=== PATIENT | male | born 1950 | race Caucasian/White ===

== ENCOUNTER 2022-06-16 14:24 | Emergency (ER) | payer OTHER, SELFPAY ==
[2022-06-16 14:32] VITALS: BP 163/85; PULSE 87; RESP 20; TEMP 36.7; O2SAT 97; BMI 29.5
--- NOTE | 2022-06-16 14:33 | ED.ABDPAIN ---
HPI - Abdominal Pain General Chief Complaint: General Medical <Flora Kramer NP - Last Filed: 06/16/22 14:36> Stated Complaint: UTI/Prostate issues <Flora Kramer NP - Last Filed: 06/16/22 14:36> Time Seen by Provider: 06/16/22 20:45 <Flora Kramer NP - Last Filed: 06/16/22 14:36> Source: patient <Bran Anderson MD - Last Filed: 06/16/22 21:57> Mode of arrival: ambulatory <Bran Anderson MD - Last Filed: 06/16/22 21:57> Limitations: no limitations <Bran Anderson MD - Last Filed: 06/16/22 21:57> History of Present Illness HPI narrative: 71-year-old male who presents emergency department for evaluation of urinary frequencydysuria times 2-3 days and frequent, small, thin bowel movements x9 days. Patient states that over the past 9 days he has had 15-20 bowel movements per day. He states that occasionally the bowel movements are thin and are small, he denies having loose stools, he states that his stools are formed. States he does have some pain after his bowel movements but otherwise denies abdominal pain. He states he has been having urinary frequency with dysuria times 2-3 days. He denied fever, chills, nausea, vomiting, abdominal pain. He has not noticed any dark stools or black stools. Denies any weight loss or weight gain. <Bran Anderson MD - Last Filed: 06/16/22 21:57> Related Data Home Medications: Previous Rx's Medication Instructions Recorded acetaminophen 500 mg tablet 1,000 mg PO Q6H PRN fever or pain 06/16/22 (Tylenol Extra Strength) #20 tabs ciprofloxacin HCl 500 mg tablet 500 mg PO Q12H 10 days #20 tabs 06/16/22 (Cipro) ibuprofen 400 mg tablet 400 mg PO TID PRN fever or pain 06/16/22 #30 tabs tamsulosin 0.4 mg capsule (Flomax) 0.4 mg PO DAILY #30 caps 06/16/22 cephalexin 500 mg capsule 500 mg PO Q6H 7 days #28 caps 06/21/22 <Flora Kramer NP - Last Filed: 06/16/22 14:36> Allergies/Adverse Reactions: Allergies Allergy/AdvReac Type Severity Reaction Status Date / Time No Known Allergies Allergy Verified 06/16/22 14:35 <Flora Kramer NP - Last Filed: 06/16/22 14:36> Review of Systems Review of Systems Yes all other systems are reviewed and are negative <Bran Anderson MD - Last Filed: 06/16/22 21:57> [facility] Past Medical History [facility] Narrative: Past medical history: Hypertension, congestive heart failure . Past surgical history: Patient had pyloric stenosis as a child. Social history: He does smoke cigarettes. He denies drug use. He denies alcohol use. <Bran Anderson MD - Last Filed: 06/16/22 21:57> Social History Social History: Social History Advance Directives: No Advance Directives Information Provided: Yes <Flora Kramer NP - Last Filed: 06/16/22 14:36> Physical Exam ED Vital Signs: Vital Signs - 24 hr 06/16/22 14:32 06/16/22 17:53 Temperature 98.1 F Pulse Rate 87 82 Respiratory Rate 20 18 Blood Pressure 163/85 H Pulse Oximetry 97 97 Oxygen Delivery Method Room Air Room Air BMI result Body Mass Index 29.5 <Flora Kramer NP - Last Filed: 06/16/22 14:36> Vital Signs - 24 hr 06/16/22 14:32 06/16/22 17:53 Temperature 98.1 F Pulse Rate 87 82 Respiratory Rate 20 18 Blood Pressure 163/85 H Pulse Oximetry 97 97 Oxygen Delivery Method Room Air Room Air BMI result Body Mass Index 29.5 Vital signs revealed an elevated systolic blood pressure otherwise unremarkable. <Bran Anderson MD - Last Filed: 06/16/22 21:57> Const Other: Patient is awake, alert, is disheveled, he appears unkempt, he answers all questions appropriately, does not appear to be in distress <Bran Anderson MD - Last Filed: 06/16/22 21:57> HENMT Head: Yes normal to inspection, Yes normocephalic and Yes atraumatic <Bran Anderson MD - Last Filed: 06/16/22 21:57> Ears: external ears normal <MD Krystian Beard Last Filed: 06/16/22 21:57> General nose exam: Normal external nose present <MD Krystian Beard Last Filed: 06/16/22 21:57> Face and sinus: Yes normal facial exam <MD Krystian Beard Last Filed: 06/16/22 21:57> Mouth: Normal oral and palatal mucosa present <MD Krystian Beard Last Filed: 06/16/22 21:57> Throat: Yes posterior oropharynx normal <MD Krystian Beard Last Filed: 06/16/22 21:57> Eyes General: appearance normal, both eyes and all related structures <MD Krystian Beard Last Filed: 06/16/22 21:57> Pupils: Equal, round and reactive pupils present <MD Krystian Beard Last Filed: 06/16/22 21:57> Neck Neck: Yes normal visual inspection, Yes no lymphadenopathy, Yes trachea midline and Yes supple <MD Krystian Beard Last Filed: 06/16/22 21:57> Chest Chest palpation & inspection: normal inspection of the chest and normal palpation of entire chest wall <MD Krystian Beard Last Filed: 06/16/22 21:57> Resp Effort & Inspection: normal respiratory effort and able to speak in complete sentences <MD Krystian Beard Last Filed: 06/16/22 21:57> Auscultation: clear to auscultation bilaterally <MD Krystian Beard Last Filed: 06/16/22 21:57> Cardio Rate: regular rate <MD Krystian Beard Last Filed: 06/16/22 21:57> Rhythm: regular rhythm <MD Krystian Beard Last Filed: 06/16/22 21:57> Heart sounds: S1 normal heart sound present, S2 normal heart sound present and no murmurs <Bran Anderson MD - Last Filed: 06/16/22 21:57> GI Inspection: Yes normal to inspection <Bran Anderson MD - Last Filed: 06/16/22 21:57> Palpation (GI): Soft to palpation, nontender and no guarding <Bran Anderson MD - Last Filed: 06/16/22 21:57> Auscultation: normal bowel sounds <Bran Anderson MD - Last Filed: 06/16/22 21:57> Other: Patient's prostate is enlarged but felt smooth, the prostate was tender and boggy, stool was loose and brown and Hemoccult negative. <Bran Anderson MD - Last Filed: 06/16/22 21:57> General: Yes no CVA tenderness <Bran Anderson MD - Last Filed: 06/16/22 21:57> Back/Spine/Pelvis Back: no CVA tenderness <Bran Anderson MD - Last Filed: 06/16/22 21:57> Skin General skin exam: no rashes or lesions noted <Bran Anderson MD - Last Filed: 06/16/22 21:57> Neuro Cranial nerves: Yes CN's II-XII intact bilaterally and Yes Equal, round and reactive pupils present <Bran Anderson MD - Last Filed: 06/16/22 21:57> Cognition (Neuro): normal cognition <Bran Anderson MD - Last Filed: 06/16/22 21:57> Motor exam (neuro): 5/5 motor strength present throughout <Bran Anderson MD - Last Filed: 06/16/22 21:57> Extrem General: Yes normal to inspection <Bran Anderson MD - Last Filed: 06/16/22 21:57> Psych Appearance: grossly normal <Bran Anderson MD - Last Filed: 06/16/22 21:57> Speech and movement: Normal speech and movement present <Bran Anderson MD - Last Filed: 06/16/22 21:57> Affect: normal affect <Bran Anderson MD - Last Filed: 06/16/22 21:57> Attitude: cooperative <Bran Anderson MD - Last Filed: 06/16/22 21:57> Thought process: Normal thought process present <Bran Anderson MD - Last Filed: 06/16/22 21:57> Thought content: Normal thought content present <Bran Anderson MD - Last Filed: 06/16/22 21:57> Course Course Course Narrative: This is a rapid medical exam. Deferred additional HPI, ROS, PE to primary provider. 71 yo male with history of CHF, HTN here with complaints of frequent urination, dysuria, diarrhea (up to 20 times a day) x 8-9 days. Will obtain labs, UA. VSS <Flora Kramer NP - Last Filed: 06/16/22 14:36> Medical Decision Making Medical Decision Making MDM Narrative: An 71-year-old male who presents emergency department for evaluation frequent, formed small stools (20 per day) x9 days, frequency, urgency and dysuria x3 days. Patient's vital signs did reveal an elevated blood pressure of 160/85 otherwise were unremarkable. Physical examination did reveal a large tender,boggy prostate rectal exam was otherwise negative. My interpretation the patient's lab studies are as follows: [place] [id number] otherwise unremarkable. BMP was normal. Urinalysis was positive for nitrates. Microscopic revealed 4+ bacteria but not a significant number WBCs or RBCs. Patient's physical examination did reveal a tender swollen prostate, my impression is that the patient has acute prostatitis is the cause of his frequency and dysuria, not certain what is causing his frequent stools and I did discuss this with him. Patient was treated with Levaquin 500 mg orally and started on ciprofloxacin 500 mg twice a day for 10 days. He was given prescriptions for Tylenol and ibuprofen as well. He was given his 1st dose of Tylenol here in the emergency department. Patient will be referred to Urology for further evaluation. Patient was also given the number to [facility] as well as [facility] to try to establish a PCP. <Bran Anderson MD - Last Filed: 06/16/22 21:57> Lab Data Result Diagrams: 06/16/22 14:41 06/16/22 14:41 <Flora Kramer, WELL SURVEYING ENGINEER - Last Filed: 06/16/22 14:36> Labs: Lab Results 06/16/22 06/16/22 06/16/22 Range/Units 14:41 14:41 20:56 WBC 11.2 H (4.8-10.8) X10*3/uL RBC 4.53 L (4.60-5.80) X10*6/uL Hgb 13.9 L (14.0-18.0) g/dl Hct 43.2 (42.0-52.0) % MCV 95.4 (80.0-98.0) fL MCH 30.7 (27.0-33.0) pg MCHC 32.2 (31.0-36.0) g/dl RDW 12.4 (11.0-16.0) % Plt Count 238 (160-400) X10*3/uL MPV 9.7 (9.4-12.4) fL Immature Gran % (Auto) 0.6 H (0.0-0.4) % Neut % (Auto) 69.6 (45-73) % Lymph % (Auto) 19.3 L (20-40) % [place] % (Auto) 8.2 (2-11) % Eos % (Auto) 1.9 (0-4) % Baso % (Auto) 0.4 (0-2) % Lymph # (Auto) 2.2 (1.2-4.9) X10*3/uL [place] # (Auto) 0.9 (0.1-1.2) X10*3/uL Eos # (Auto) 0.2 (0.0-0.4) X10*3/uL Baso # (Auto) 0.1 (0.0-0.2) X10*3/uL Abs Immat Gran (auto) 0.07 H (0.00-0.03) X10*3/uL Absolute Neuts (auto) 7.8 (2.0-8.3) x10*3/uL Absolute Nucleated RBC 0.000 (0.0-0.012) X10*3/uL Nucleated RBC % (auto) 0.0 (0.0-0.2) /100WBC Sodium 139 (135-145) mmol/L Potassium 4.5 (3.3-5.1) mmol/L Chloride 105 (96-108) mmol/L Carbon Dioxide 27 (22-29) mmol/L Anion Gap 12 (12-20) BUN 15 (9-16) mg/dL Creatinine 1.13 (0.5-1.4) mg/dL Estim Creat Clear Calc 68.6 Estimated GFR > 60 Random Glucose 107 (60-115) mg/dL Calcium 9.1 (8.4-10.2) mg/dL Urine Color Yellow Urine Appearance Clear Urine pH 5.5 (5.0-9.0) Ur Specific [place] 1.015 (1.005-1.025) Urine Protein Negative (Neg-Trace) mg/dL Urine Glucose (UA) Negative (Negative) mg/dL Urine Ketones Negative (Negative) mg/dL Urine Blood Negative (Negative) Urine Nitrite Positive H (Negative) Ur Leukocyte Esterase Trace H (Negative) Urine RBC 0-2 (0-2) /HPF Urine WBC 0-5 (0-5) /HPF Ur Squamous Epith Cells 0-2 (0-2) /HPF Urine Bacteria 4+ (None Seen) Hyaline Casts 0-2 (0-2) /LPF <Flora Kramer, WELL SURVEYING ENGINEER - Last Filed: 06/16/22 14:36> Lab Results 06/16/22 06/16/22 06/16/22 Range/Units 14:41 14:41 20:56 WBC 11.2 H (4.8-10.8) X10*3/uL RBC 4.53 L (4.60-5.80) X10*6/uL Hgb 13.9 L (14.0-18.0) g/dl Hct 43.2 (42.0-52.0) % MCV 95.4 (80.0-98.0) fL MCH 30.7 (27.0-33.0) pg MCHC 32.2 (31.0-36.0) g/dl RDW 12.4 (11.0-16.0) % Plt Count 238 (160-400) X10*3/uL MPV 9.7 (9.4-12.4) fL Immature Gran % (Auto) 0.6 H (0.0-0.4) % Neut % (Auto) 69.6 (45-73) % Lymph % (Auto) 19.3 L (20-40) % [place] % (Auto) 8.2 (2-11) % Eos % (Auto) 1.9 (0-4) % Baso % (Auto) 0.4 (0-2) % Lymph # (Auto) 2.2 (1.2-4.9) X10*3/uL [place] # (Auto) 0.9 (0.1-1.2) X10*3/uL Eos # (Auto) 0.2 (0.0-0.4) X10*3/uL Baso # (Auto) 0.1 (0.0-0.2) X10*3/uL Abs Immat Gran (auto) 0.07 H (0.00-0.03) X10*3/uL Absolute Neuts (auto) 7.8 (2.0-8.3) x10*3/uL Absolute Nucleated RBC 0.000 (0.0-0.012) X10*3/uL Nucleated RBC % (auto) 0.0 (0.0-0.2) /100WBC Sodium 139 (135-145) mmol/L Potassium 4.5 (3.3-5.1) mmol/L Chloride 105 (96-108) mmol/L Carbon Dioxide 27 (22-29) mmol/L Anion Gap 12 (12-20) BUN 15 (9-16) mg/dL Creatinine 1.13 (0.5-1.4) mg/dL Estim Creat Clear Calc 68.6 Estimated GFR > 60 Random Glucose 107 (60-115) mg/dL Calcium 9.1 (8.4-10.2) mg/dL Urine Color Yellow Urine Appearance Clear Urine pH 5.5 (5.0-9.0) Ur Specific [place] 1.015 (1.005-1.025) Urine Protein Negative (Neg-Trace) mg/dL Urine Glucose (UA) Negative (Negative) mg/dL Urine Ketones Negative (Negative) mg/dL Urine Blood Negative (Negative) Urine Nitrite Positive H (Negative) Ur Leukocyte Esterase Trace H (Negative) Urine RBC 0-2 (0-2) /HPF Urine WBC 0-5 (0-5) /HPF Ur Squamous Epith Cells 0-2 (0-2) /HPF Urine Bacteria 4+ (None Seen) Hyaline Casts 0-2 (0-2) /LPF <Bran Anderson MD - Last Filed: 06/16/22 21:57> Discharge Plan Discharge Clinical Impression: Acute prostatitis, Frequent stools <Flora Kramer NP - Last Filed: 06/16/22 14:36> Patient Disposition: Home, Self-Care <Flora Kramer NP - Last Filed: 06/16/22 14:36> Instructions: Prostatitis (ED) <Flora Kramer NP - Last Filed: 06/16/22 14:36> Additional Instructions: Your blood work was unremarkable. Your urine did not reveal evidence for urine infection but you do have bacteria in your urine which could be consistent with prostatitis. Your rectal exam did reveal a soft tender prostate which is also consistent with prostatitis. You received Levaquin 500 mg orally which is an antibiotic which is good for 24 hours. I am starting you on ciprofloxacin 500 mg every 12 hours for 10 days to treat prostatitis. Take your 1st dose of ciprofloxacin tomorrow evening at 21:00 and then take it every 12 hours until you finish the entire prescription. Take Flomax (tamsulosin) 0.4 mg at night. This medication helps relax smooth muscle and the prostate and should help with the frequent urination. Take ibuprofen 200 mg pills, 3 pills every 6 hours as needed for pain. Take Tylenol (acetaminophen) 500 mg pills, 2 pills every 4 to 6 hours as needed for pain. I want you to follow-up with our on-call urologist in 7-14 days for re-evaluation to make sure that your better. I will also give me the number to some primary care providers, try to get a PCP as well. Follow-up with your doctor in 2 days. Please return to the emergency department if your symptoms get worse or if you develop any symptoms that are concerning to you. <Flora Kramer NP - Last Filed: 06/16/22 14:36> Prescriptions: New ciprofloxacin HCl [Cipro] 500 mg tablet 500 mg PO Q12H 10 Days Qty: 20 0RF acetaminophen [Tylenol Extra Strength] 500 mg tablet 1,000 mg PO Q6H PRN (Reason: fever or pain) Qty: 20 0RF tamsulosin [Flomax] 0.4 mg capsule 0.4 mg PO DAILY Qty: 30 0RF ibuprofen 400 mg tablet 400 mg PO TID PRN (Reason: fever or pain) Qty: 30 0RF cephalexin 500 mg capsule 500 mg PO Q6H 7 Days Qty: 28 0RF <Flora Kramer NP - Last Filed: 06/16/22 14:36> Referrals: Rolando Esquivel MD [Physician] - 2 weeks (Frequency, dysuria, UA positive for bacteria only, prostate enlarged and tender) <Flora Kramer NP - Last Filed: 06/16/22 14:36> Interventions: ED Discharge Assessment Last Done: 06/16/22 22:11 <Flora Kramer NP - Last Filed: 06/16/22 14:36> Discharge Date/Time: 06/16/22 22:12 <Flora Kramer NP - Last Filed: 06/16/22 14:36>
[2022-06-16 14:46] LABS: MANUAL DIFF FLAG NO
[2022-06-16 14:56] LABS: Basophils Absolute Auto 0.1 X10*3/uL (0.0-0.2); Basophils Percent Auto 0.4 % (0-2); Eosinophils Absolute Auto 0.2 X10*3/uL (0.0-0.4); Eosinophils Percent Auto 1.9 % (0-4); Hematocrit 43.2 % (42.0-52.0); Hemoglobin 13.9 g/dl (14.0-18.0); Imm Gran Abs Auto 0.07 X10*3/uL (0.00-0.03); Imm Gran Pct Auto 0.6 % (0.0-0.4); Lymphocytes Absolute Auto 2.2 X10*3/uL (1.2-4.9); Lymphocytes Percent Auto 19.3 % (20-40); Mean Corpuscular HGB Conc 32.2 g/dl (31.0-36.0); Mean Corpuscular Hemoglobin 30.7 pg (27.0-33.0); Mean Corpuscular Volume 95.4 fL (80.0-98.0); Mean Platelet Volume 9.7 fL (9.4-12.4); Monocytes Absolute Auto 0.9 X10*3/uL (0.1-1.2); Monocytes Percent Auto 8.2 % (2-11); Neutrophils Absolute Auto 7.8 x10*3/uL (2.0-8.3); Neutrophils Percent Auto 69.6 % (45-73); Platelet Count 238 X10*3/uL (160-400); Red Blood Count 4.53 X10*6/uL (4.60-5.80); Red Cell Distribution Width 12.4 % (11.0-16.0); White Blood Count 11.2 X10*3/uL (4.8-10.8)
[2022-06-16 16:13] LABS: Anion Gap 12 (12-20); Blood Urea Nitrogen 15 mg/dL (9-16); Calcium 9.1 mg/dL (8.4-10.2); Carbon Dioxide 27 mmol/L (22-29); Chloride 105 mmol/L (96-108); Creatinine Clr Calc Pharmacy 68.6; Estimated Glomerular Filt Rate > 60; Glucose Random 107 mg/dL (60-115); Potassium 4.5 mmol/L (3.3-5.1); Sodium 139 mmol/L (135-145)
[2022-06-16 17:53] VITALS: PULSE 82; RESP 18; O2SAT 97
--- OUTSIDE RECORDS SUMMARY | 2022-06-16 20:11 | XMS_ITS | Continuity of Care Document ---
:1950 Author Organization [facility] Address [address] [place] [id number]- Care Team Providers Name Role Phone Avani Perez NP Primary Care Physician [place] [facility] [place]/22 [facility] [address] [place] [address]- Allergies, Adverse Reactions, Alerts No Known Allergies Immunizations Given and Recorded Vaccine Date Status Refusal Reason influenza virus vaccine, inactivated 04/26/21 Given Medications Home Blood Pressure Monitor See Instructions, # 1 each, Refills 0, Tot. Refills 0, Maintenance, Please take blood pressure and HR at least once daily. ICD-10 Code: I10, 12/01/21 16:01:00 EDT, Supply Start Date: 12/01/21 Status: OrderedTylenol 325 mg oral tablet 975 mg, 3, tablet, By Mouth, Every 8 hours, # 90 tablet, Refills 0, Tot. Refills 0, Maintenance, 05/01/21 12:13:00 EST, Route to Pharmacy Electronically, [facility], Partial fill upon patient request if the prescription is for a schedule... Start Date: 05/01/21 Status: Ordered Problem List Condition Effective Dates Status Health Status Informant ETOH abuse, stopped 5 years Active ago(Confirmed) Atrial flutter(Confirmed) Active CKD (chronic kidney disease) stage 2, Active GFR 60-89 ml/min(Confirmed) Heart failure with acute Active decompensation, type unknown(Confirmed) Diverticulosis(Confirmed) Active Hypertension(Confirmed) Active Overweight with body mass index (BMI) Active of 28 to 28.9 in adult(Confirmed) Pre-diabetes(Confirmed) Active Tobacco use, 1 ppd x40 years recently Active decreased to 1/2ppd(Confirmed) Social History Social History Type Response Smoking Status 10 or more cigarettes (1/2 p ack or more)/day in last 30 days; Type: Cigarettes; Started at age: 25; entered on: 05/18/21 Sex Care Team PersonnelName: Avani Perez NP Address: [address] [place] [id number]
--- OUTSIDE RECORDS SUMMARY | 2022-06-16 20:11 | XMS_ITS | Continuity of Care Document ---
:1950 Author Organization [facility] Address [address] [place] [address]- Care Team Providers Name Role Phone Chris NUR, Chevy Winter Primary Care Physician Encounter [facility] Date(s): 03/09/22 - 04/08/[address] [address]- Allergies, Adverse Reactions, Alerts No Known Allergies Immunizations Given and Recorded Vaccine Date Status Refusal Reason influenza virus vaccine, inactivated 03/19/22 Recorded influenza virus vaccine, inactivated 04/26/21 Given SARS-CoV-2 (COVID-19) mRNA-1273 vaccine 05/13/21 Recorded SARS-CoV-2 (COVID-19) mRNA-1273 vaccine 09/14/20 Recorded SARS-CoV-2 (COVID-19) mRNA-1273 vaccine 08/17/20 Recorded Medications amiODARONE = 400 mg, Daily, 0 Refills, Maintenance, 03/25/22 10:48:00 EST, Partial fill upon patient request ifthe prescription is for a schedule II opioid drug. Start Date: 03/25/22 Status: Orderedamiodarone 200 mg oral tablet TAKE 1 TABLET BY MOUTH EVERY DAY Start Date: 03/23/22 Status: Orderedatorvastatin 40 mg oral tablet 1 tablet, By Mouth, Daily, # 90 tablet, 0 Refills, Maintenance, 03/26/22 7:41:00 EST, [facility]/pharmacy #[id number], Office visit needed for further refills., 177, cm, 03/25/22 10:46:00 EST, Height, 79, kg, 06/14/21 2:29:00 EST, Dry Weight Start Date: 03/26/22 Status: OrderedEliquis 5 mg oral tablet 1 tablet, By Mouth, 2 times a day, # 60 tablet, 0 Refills, Maintenance, 03/26/22 8:44:00 EST, [facility]/pharmacy #[id number], 177, cm, 03/25/22 10:46:00 EST, Height, 79, kg, 06/14/21 2:29:00 EST, Dry Weight Start Date: 03/26/22 Status: Orderedfurosemide 40 mg oral tablet 1, tablet, By Mouth, 2 times a day, # 180 tablet, Refills 1, Maintenance, 01/24/22 12:02:00 EDT, Route to Pharmacy Electronically, [id number], 177, cm, 07/21/21 11:38:00 EST, Height, 79, kg, 06/14/21 2:29:00 EST, Dry Weight Start Date: 01/24/22 Status: OrderedHome Blood Pressure Monitor See Instructions, # 1 each, Refills 0, Tot. Refills 0, Maintenance, Please take blood pressure and HR at least once daily. ICD-10 Code: I10, 12/01/21 16:01:00 EDT, Supply Start Date: 12/01/21 Status: OrderedhydrALAZINE 25 mg oral tablet 3, tablet, By Mouth, 2 times a day, # 180 tablet, Refills 2, Tot. Refills 2, Maintenance, 02/24/22 15:55:00 EDT, Route to Pharmacy Electronically, [facility]/pharmacy #[id number], 177, cm, 07/21/21 11:38:00 EST, Height, 79, kg, 06/14/21 2:29:00 EST, Dry Weight Start Date: 02/24/22 Status: Orderedisosorbide mononitrate 30 mg oral tablet, extended release 3 tablet, By Mouth, Daily, # 90 tablet, 0 Refills, 01/01/22 12:02:00 EDT, [facility]/pharmacy #[id number], 177, cm, 07/21/21 11:38:00 EST, Height, 79, kg, 06/14/21 2:29:00 EST, Dry Weight Start Date: 01/01/22 Status: Orderedlisinopril 40 mg oral tablet 1 tablet, By Mouth, Daily, # 90 tablet, 0 Refills, Maintenance, 03/26/22 7:41:00 EST, [facility]/pharmacy #[id number], Office visit needed for further refills., 177, cm, 03/25/22 10:46:00 EST, Height, 79, kg, 06/14/21 2:29:00 EST, Dry Weight Start Date: 03/26/22 Status: OrderedTylenol 325 mg oral tablet 975 mg, 3, tablet, By Mouth, Every 8 hours, # 90 tablet, Refills 0, Tot. Refills 0, Maintenance, 05/01/21 12:13:00 EST, Route to Pharmacy Electronically, [facility], Partial fill upon patient request if the prescription is for a schedule... Start Date: 05/01/21 Status: Ordered Problem List Condition Confirmation Course Effective Dates Status Health I nformant Status ETOH abuse, stopped 5 Confirmed Active years ago Atrial flutter Confirmed Active CKD (chronic kidney Confirmed Active disease) stage 2, GFR 60-89 ml/min Heart failure with Confirmed Active acute decompensation, type unknown Diverticulosis Confirmed Active Hypertension Confirmed Active Overweight with body Confirmed Active mass index (BMI) of 28 to 28.9 in adult Pre-diabetes Confirmed Active Tobacco use, 1 ppd Confirmed Active x40 years recently decreased to 1/2ppd Social History Social History Type Response Smoking Status 10 or more cigarettes (1/2 p ack or more)/day in last 30 days; Type: Cigarettes; Started at age: 25; entered on: 05/18/21 Sex Patient Care team information Care Team PersonnelName: Mary Seals RN Position: [facility] RN Member Role: Primary Care Nurse Name: Chevy Perez NP Position: [facility] PCO Associate Professional Member Role: PCP Address: Address: [address] [place] [id number]- Name: Meggan Bennett RN Position: [facility] [employer] Member Role: Primary Care Nurse Care Team Related PersonsName: CHIKIS MASON Name: CHEVY MASON Address: home [address] [place] [address]
--- OUTSIDE RECORDS SUMMARY | 2022-06-16 20:11 | XMS_ITS | Continuity of Care Document ---
:1950 Author Organization [facility] Address [address] [place] [address]- Care Team Providers Name Role Phone Chevy Perez NP Primary Care Physician Encounter [facility] Date(s): 03/25/22 - 04/24/22 [facility] [address] [place], [place] [id number]- Attending Physician: Sumi Chen Admitting Physician: Sumi Chen Referring Physician: Sumi Chen Allergies, Adverse Reactions, Alerts No Known Allergies [...] tablet, 0 Refills, Maintenance, 03/26/22 7:41:00 EST, [facility]/pharmacy #[id number], Office visit needed for further refills., 177, cm, 03/25/22 10:46:00 EST, Height, 79, kg, 06/14/21 2:29:00 EST, Dry Weight Start Date: 03/26/22 Status: OrderedEliquis 5 mg oral tablet 1 tablet, By Mouth, 2 times a day, # 60 tablet, 0 Refills, Maintenance, 03/26/22 8:44:00 EST, [facility]/pharmacy #[id number], 177, cm, 03/25/22 10:46:00 EST, Height, 79, kg, 06/14/21 2:29:00 EST, Dry Weight Start Date: 03/26/22 Status: Orderedfurosemide 40 mg oral tablet 1, tablet, By Mouth, 2 times a day, # 180 tablet, Refills 1, Maintenance, 01/24/22 12:02:00 EDT, Route to Pharmacy Electronically, [id number], 177, cm, 07/21/21 11:38:00 EST, Height, 79, [...] 02/24/22 15:55:00 EDT, Route to Pharmacy Electronically, [facility]/pharmacy #[id number], 177, cm, 07/21/21 11:38:00 EST, Height, 79, kg, 06/14/21 2:29:00 EST, Dry Weight Start Date: 02/24/22 Status: Orderedisosorbide mononitrate 30 mg oral tablet, extended release 3 tablet, By Mouth, Daily, # 90 tablet, 0 Refills, 01/01/22 12:02:00 EDT, [facility]/pharmacy #[id number], 177, cm, 07/21/21 11:38:00 EST, Height, 79, kg, 06/14/21 2:29:00 EST, Dry Weight Start Date: 01/01/22 Status: Orderedlisinopril 40 mg oral tablet 1 tablet, By Mouth, Daily, # 90 tablet, 0 Refills, Maintenance, 03/26/22 7:41:00 EST, [facility]/pharmacy #[id number], Office visit needed for further refills., 177, cm, 03/25/22 10:46:00 EST, Height, 79, kg, 06/14/21 2:29:00 EST, Dry Weight Start Date: 03/26/22 Status: OrderedTylenol 325 mg oral tablet 975 mg, 3, tablet, By Mouth, Every 8 hours, # 90 tablet, Refills 0, Tot. Refills 0, Maintenance, 05/01/21 12:13:00 EST, Route to Pharmacy Electronically, [facility], Partial fill upon patient request [...] Care Team PersonnelName: Mary Seals RN Position: [facility] RN Member Role: Primary Care Nurse Name: Chevy Perez NP Position: [facility] PCO Associate Professional Member Role: PCP Address: Address: [address] [place] [address]- Name: Meggan Bennett RN Position: [facility] Hospital De Ionizer Operator Member Role: Primary Care Nurse Care Team Related PersonsName: CHIKIS MASON Name: CHEVY MASON Address: home [address] [place] [address]
--- OUTSIDE RECORDS SUMMARY | 2022-06-16 20:11 | XMS_ITS | Continuity of Care Document ---
:1950 Author Organization [facility] Address [address] [place] [address]- Care Team Providers Name Role Phone Chris NUR, Avani Winter Primary Care Physician Encounter [facility] Date(s): 07/28/21 - 08/27/21 [facility] [address] [place], [place] [address] Attending Physician: Sumi Chen Admitting Physician: Sumi Chen Referring Physician: AdmtrSumi Allergies, Adverse Reactions, Alerts No Known Allergies Immunizations Given and Recorded Vaccine Date Status Refusal Reason influenza virus vaccine, inactivated 04/26/21 Given Medications Tylenol 325 mg oral tablet 975 mg, 3, tablet, By Mouth, Every 8 hours, # 90 tablet, Refills 0, Tot. Refills 0, Maintenance, 05/01/21 12:13:00 EST, Route to Pharmacy Electronically, [facility], Partial fill upon [...]
--- OUTSIDE RECORDS SUMMARY | 2022-06-16 20:11 | XMS_ITS | Continuity of Care Document ---
:1950 Author Organization [facility] Address [address] [place] [address]- Care Team Providers Name Role Phone Avani Perez NP Primary Care Physician Encounter [facility] Date(s): 06/19/21 - 08/01/21 [facility] [address] [place], [place] [address] Attending Physician: Avani Perez NP Allergies, Adverse Reactions, Alerts No Known Allergies Immunizations Given and Recorded Vaccine Date Status Refusal Reason influenza virus vaccine, inactivated 04/26/21 Given Medications Lasix 40 mg oral tablet 40 mg, 1, tablet, By Mouth, Daily, Monitor your weight daily. Should your weight increase please discuss dose with your PCP., # 60 tablet, Refills 0, Tot. Refills 0, Maintenance, 06/19/21 10:07:00 EST,Do Not Route, Partial fill upon patient request i... Start Date: 06/19/21 Status: OrderedTylenol 325 mg oral tablet 975 mg, 3, tablet, By Mouth, Every 8 hours, # 90 tablet, Refills 0, Tot. Refills 0, Maintenance, 05/01/21 12:13:00 EST, Route to Pharmacy Electronically, [facility], Partial fill upon patient request if [...]
--- OUTSIDE RECORDS SUMMARY | 2022-06-16 20:11 | XMS_ITS | Continuity of Care Document ---
:1950 Author Organization [facility] Address [address] [place] [address]- Care Team Providers Name Role Phone Chris EXHIBITIONS CURATOR, Avani Winter Primary Care Physician Encounter [facility] Date(s): 12/23/21 - 02/10/22 [facility] [address] [place], [place] [address] Attending Physician: Arun Mccurdy MD Allergies, Adverse Reactions, Alerts No Known Allergies Immunizations Given and Recorded Vaccine Date Status Refusal Reason influenza virus vaccine, inactivated 04/26/21 Given Medications amiodarone 200 mg oral tablet 1, tablet, By Mouth, Daily, for 30 days, # 30 tablet, Refills 3, Tot. Refills 3, Physician Stop 03/04/22 11:50:00 EDT, 11/04/21 11:50:00 EDT, Route to Pharmacy Electronically, [facility]/pharmacy #[id number], 177, cm, 07/21/21 11:38:00 EST, Height, 79, kg, ... Start Date: 11/04/21 Stop Date: 03/04/22 Status: Orderedapixaban 5 mg oral tablet 1 tablet = 5 mg, By Mouth, 2 times a day, # 60 tablet, 5 Refills, Maintenance, 10/02/21 12:17:00 EDT, Tablet, [facility]/pharmacy #[id number], Partial fill upon patient request if the prescription is for a scheduleII opioid drug., 177, cm, 07/21/21 11:38:00 EST,... Start Date: 10/02/21 Status: Orderedatorvastatin 40 mg oral tablet 1 tablet, By Mouth, Daily, for 90 days, # 90 tablet, 0 Refills, Physician Stop 04/01/22 12:02:00 EST, 08/19/22 12:02:00 EDT, [facility]/pharmacy #[id number], 177, cm, 07/21/21 11:38:00 EST, Height, 79, kg, 222:29:00 EST, Dry Weight Start Date: 01/01/22 Stop Date: 04/01/22 Status: Orderedfurosemide 40 mg oral tablet 1, tablet, By Mouth, 2 times a day, # 180 tablet, Refills 1, Maintenance, 01/24/22 12:02:00 EDT, Route to Pharmacy Electronically, [id number], 177, cm, 07/21/21 11:38:00 EST, Height, 79, [...] tablet, Refills 2, Tot. Refills 2, Maintenance, 12/24/21 2:11:00 EDT, Route to Pharmacy Electronically, [facility]/pharm[facility] #[id number], 177, cm, 07/21/21 11:38:00 EST, Height, 79, kg, 06/14/21 2:29:00 EST, Dry Weight Start Date: 12/24/21 Status: Orderedisosorbide mononitrate 30 mg oral tablet, extended release 3 tablet, By Mouth, Daily, # 90 tablet, 0 Refills, 01/01/22 12:02:00 EDT, [facility]/pharm[facility] #[id number], 177, cm, 07/21/21 11:38:00 EST, Height, 79, kg, 06/14/21 2:29:00 EST, Dry Weight Start Date: 01/01/22 Status: Orderedlisinopril 40 mg oral tablet 1 tablet, By Mouth, Daily, # 30 tablet, 2 Refills, Maintenance, 01/19/22 18:52:00 EDT, [id number], 177, cm, 07/21/21 11:38:00 EST, Height, 79, kg, 06/14/21 2:29:00 EST, Dry Weight Start Date: 01/19/22 Status: OrderedTylenol 325 mg oral tablet 975 mg, 3, tablet, By Mouth, Every 8 hours, # 90 tablet, Refills 0, Tot. Refills 0, Maintenance, 05/01/21 12:13:00 EST, Route to Pharmacy Electronically, [facility], Partial fill upon patient request [...] on: 05/18/21 Sex Patient Care team information PersonnelName: Avani Perez NP Address: Address: [address] [place] [address]
--- OUTSIDE RECORDS SUMMARY | 2022-06-16 20:11 | XMS_ITS | Continuity of Care Document ---
:1950 Author Organization [facility] Address [address] [place] [address]- Care Team Providers Name Role Phone Chris NUR, Avani Winter Primary Care Physician Encounter [facility] Date(s): 07/02/21 - 08/01/21 [facility] [address] [place], [place] [address] Attending Physician: Sumi Chen Admitting Physician: [...] 05/01/21 12:13:00 EST, Route to Pharmacy Electronically, [facility], Partial fill upon patient [...]
--- OUTSIDE RECORDS SUMMARY | 2022-06-16 20:11 | XMS_ITS | Continuity of Care Document ---
:1950 Author Organization [facility] Address [address] [place] [address]- Care Team Providers Name Role Phone Chris NUR, Britni Primary Care Physician Encounter [facility] Date(s): 07/28/21 - 08/04/[address] [facility] [address] [place] [address] Attending Physician: Lavon Garber MD Admitting Physician: Lavon Garber MD Referring Physician: En VASQUEZ, Javier ALVAREZ Allergies, Adverse Reactions, Alerts No Known Allergies Immunizations Given and Recorded Vaccine Date Status Refusal Reason influenza virus vaccine, inactivated 04/26/21 Given Medications Tylenol 325 mg oral tablet 975 mg, 3, tablet, By Mouth, Every 8 hours, # 90 tablet, Refills 0, Tot. Refills 0, Maintenance, 05/01/21 12:13:00 EST, Route to Pharmacy Electronically, [facility], Partial fill upon patient [...]
--- OUTSIDE RECORDS SUMMARY | 2022-06-16 20:11 | XMS_ITS | Continuity of Care Document ---
:1950 Author Organization [facility] Address [address] [place] [address]- Care Team Providers Name Role Phone Chris NUR, Avani Winter Primary Care Physician Encounter [facility] Date(s): 05/29/21 - 06/05/21 [facility] [address] [place] [address]- Encounter Diagnosis Dysuria (Discharge Diagnosis) - 05/29/21 Attending Physician: Jessica Coughlin MD Referring Physician: Avani Perez NP Allergies, Adverse Reactions, Alerts No Known Allergies Immunizations Given and Recorded Vaccine Date Status Refusal Reason influenza virus vaccine, inactivated 04/26/21 Given Medications Macrobid macrocrystals-monohydrate 100 mg oral capsule 1 capsule = 100 mg, By Mouth, 2 times a day, for 5 days, # 10 capsule, 0 Refills, Acute 06/07/21 16:42:00 EST, 06/02/21 16:42:00 EST, Capsule, [id number], Partial fill upon patient request if the prescription is for a schedule II opioid drug.,... Start Date: 06/02/21 Stop Date: 06/07/21 Status: OrderedTylenol 325 mg oral tablet 975 mg, 3, tablet, By Mouth, Every 8 hours, # 90 tablet, Refills 0, Tot. Refills 0, Maintenance, 05/01/21 12:13:00 EST, Route to Pharmacy Electronically, [facility], Partial fill upon patient [...] x40 years recently Active decreased to 1/2ppd(Confirmed) Diagnosis Diagnosis Type Effective Dates Health Status Clinical Serv ice Informant Dysuria Discharge 05/29/21 Diagnosis Vital Signs Most recent to oldest [Reference Range]: 1 Height 175 cm (05/29/21 10:14 AM) Oxygen Saturation [94-100 %] 98 % (05/29/21 10:14 AM) Pulse Rate [55-90 bpm] 80 bpm (05/29/21 10:14 AM) Blood Pressure [90-138/55-84 mm Hg] 138/73 mm Hg (05/29/21 10:14 AM) Respiratory Rate [16-30 br/min] 20 br/min (05/29/21 10:14 AM) Temperature [96.8-100.4 DegF] 98.7 DegF (05/29/21 10:14 AM) Mode of Delivery (Oxygen) Room air (05/29/21 10:14 AM) Blood pressure sites Arm, left (05/29/21 10:14 AM) Temperature Route Temporal (05/29/21 10:14 AM) Social History Social History Type Response Smoking Status 10 or more cigarettes (1/2 p ack or more)/day in last 30 days; Type: Cigarettes; Started at age: 25; entered on: 05/18/21 Sex
--- OUTSIDE RECORDS SUMMARY | 2022-06-16 20:11 | XMS_ITS | Continuity of Care Document ---
:1950 Author Organization [facility] Address [address] [place] [address]- Care Team Providers Name Role Phone Chris NUR, Avani Winter Primary Care Physician Encounter [facility] [facility] Date(s): 06/13/21 - 07/13/21 [facility] [address] [place] [address]- Attending Physician: Jessica Coughlin MD Referring Physician: [...] 05/01/21 12:13:00 EST, Route to Pharmacy Electronically, [facility], Partial fill upon patient request [...]
--- OUTSIDE RECORDS SUMMARY | 2022-06-16 20:11 | XMS_ITS | Continuity of Care Document ---
:1950 Author Organization [facility] Address [address] [place] [address]- Care Team Providers Name Role Phone Chris NUR, Avani Winter Primary Care Physician Encounter [facility] Date(s): 10/02/21 - 11/01/[address] [address]- Allergies, Adverse Reactions, Alerts No Known Allergies Immunizations Given and Recorded Vaccine Date Status Refusal Reason influenza virus vaccine, inactivated 04/26/21 Given Medications Tylenol 325 mg oral tablet 975 mg, 3, tablet, By Mouth, Every 8 hours, # 90 tablet, Refills 0, Tot. Refills 0, Maintenance, 05/01/21 12:13:00 EST, Route to Pharmacy Electronically, [facility], Partial fill upon patient request if [...]
--- OUTSIDE RECORDS SUMMARY | 2022-06-16 20:11 | XMS_ITS | Continuity of Care Document ---
:1950 Author Organization [facility] Address [address] [place] [address]- Care Team Providers Name Role Phone Chris COMPUTER INSTRUCTOR, Avani Winter Primary Care Physician Encounter [facility] Date(s): 01/11/22 - 02/10/22 [facility] [address] [place], [place] [address] Attending Physician: Sumi Chen Admitting Physician: AdmSumi conner Referring Physician: AdmtrSumi Allergies, Adverse Reactions, Alerts No Known Allergies Immunizations Given and Recorded Vaccine Date Status Refusal Reason influenza virus vaccine, inactivated 04/26/21 Given Medications amiodarone 200 mg oral tablet 1, tablet, By Mouth, Daily, for 30 days, # 30 tablet, Refills 3, Tot. Refills 3, Physician Stop 03/04/22 11:50:00 EDT, 11/04/21 11:50:00 EDT, Route to Pharmacy Electronically, [facility]/pharmacy #[id number], 177, cm, 07/21/21 11:38:00 EST, Height, 79, kg, ... Start Date: 11/04/21 Stop Date: 03/04/22 Status: Orderedapixaban 5 mg oral tablet 1 tablet = 5 mg, By Mouth, 2 times a day, # 60 tablet, 5 Refills, Maintenance, 10/02/21 12:17:00 EDT, Tablet, [facility]/pharmacy #[id number], Partial fill upon patient request if the prescription is for a scheduleII opioid drug., 177, cm, 07/21/21 11:38:00 EST,... Start Date: 10/02/21 Status: Orderedatorvastatin 40 mg oral tablet 1 tablet, By Mouth, Daily, for 90 days, # 90 tablet, 0 Refills, Physician Stop 04/01/22 12:02:00 EST, 01/01/22 12:02:00 EDT, [facility]/pharmacy #[id number], 177, cm, 07/21/21 11:38:00 EST, Height, 79, kg, 222:29:00 EST, Dry Weight Start Date: 01/01/22 Stop Date: 04/01/22 Status: Orderedfurosemide 40 mg oral tablet 1, tablet, By Mouth, 2 times a day, # 180 tablet, Refills 1, Maintenance, 01/24/22 12:02:00 EDT, Route to Pharmacy Electronically, [id number], 177, cm, 07/21/21 11:38:00 EST, Height, 79, [...] 12/24/21 2:11:00 EDT, Route to Pharmacy Electronically, [facility]/pharmacy #[id number], 177, cm, 07/21/21 11:38:00 EST, Height, 79, kg, 06/14/21 2:29:00 EST, Dry Weight Start Date: 12/24/21 Status: Orderedisosorbide mononitrate 30 mg oral tablet, extended release 3 tablet, By Mouth, Daily, # 90 tablet, 0 Refills, 01/01/22 12:02:00 EDT, [facility]/pharmacy #[id number], 177, cm, 07/21/21 11:38:00 EST, Height, 79, kg, 06/14/21 2:29:00 EST, Dry Weight Start Date: 01/01/22 Status: Orderedlisinopril 40 mg oral tablet 1 tablet, By Mouth, Daily, # 30 tablet, 2 Refills, Maintenance, 01/19/22 18:52:00 EDT, [id number], 177, cm, 07/21/21 11:38:00 EST, Height, 79, kg, 06/14/21 2:29:00 EST, Dry Weight Start Date: 01/19/22 Status: OrderedTylenol 325 mg oral tablet 975 mg, 3, tablet, By Mouth, Every 8 hours, # 90 tablet, Refills 0, Tot. Refills 0, Maintenance, 05/01/21 12:13:00 EST, Route to Pharmacy Electronically, [facility], Partial fill upon [...] information PersonnelName: Avani Perez NP Address: Address: [address] [place] [address]
--- OUTSIDE RECORDS SUMMARY | 2022-06-16 20:11 | XMS_ITS | Continuity of Care Document ---
:1950 Author Organization [facility] Address [address] [place] [address]- Care Team Providers Name Role Phone Chris NUR, Avani Winter Primary Care Physician Encounter [facility] Date(s): 05/18/21 - 06/17/[address] [address]- Attending Physician: Sumi Chen Admitting Physician: Sumi [...] 05/01/21 12:13:00 EST, Route to Pharmacy Electronically, [facility], Partial fill upon patient [...]
--- OUTSIDE RECORDS SUMMARY | 2022-06-16 20:11 | XMS_ITS | Continuity of Care Document ---
:1950 Author Organization [facility] Address [address] [place] [address]- Care Team Providers Name Role Phone Chris NUR, Avani Winter Primary Care Physician [place] [facility] [place] 06/13/21 - 06/19/[address] [address] Encounter Diagnosis Testicular pain (Final) - 06/13/21 Discharge Disposition: A-D/C Home Attending Physician: Beverly Levin MD Admitting Physician: Stanley Marcano DO Referring Physician: Not on Staff, Referring MD Allergies, Adverse Reactions, Alerts No Known Allergies Immunizations Given and Recorded Vaccine Date Status Refusal Reason influenza virus vaccine, inactivated 04/26/21 Given Medications cefpodoxime 200 mg oral tablet 1 tablet = 200 mg, By Mouth, 2 times a day, Please take through 06/25., # 13 tablet, 0 Refills, Acute06/25/21 23:59:00 EST, 06/19/21 10:09:00 EST, Tablet, [facility], Partial fill upon patient request if the prescription is for a schedul... Start Date: 06/19/21 Stop Date: 06/25/21 Status: OrderedhydrALAZINE 25 mg oral tablet 75 mg, Tablet, By Mouth, 06/19/21 9:00:00 EST Start Date: 06/19/21 Stop Date: 06/19/21 Status: CompletedLasix 40 mg oral tablet 40 mg, 1, [...] for a schedule... Start Date: 05/01/21 Status: OrderedTylenol 325 mg oral tablet 975 mg, Tablet, By Mouth, Every 8 hours, PRN for Pain , Mild, Routine, 06/13/21 14:00:00 EST Start Date: 06/13/21 Stop Date: 06/20/21 Status: Discontinued Problem List Condition Effective Dates Status Health [...] x40 years recently Active decreased to 1/2ppd(Confirmed) Results Orders for Microbiology Reports Name Date Blood Culture 06/13/21 Blood Culture #2 06/13/21 Urine Culture (URINE CULTURE) 06/13/21 Microbiology Reports TEST:Blood Culture, Second Order STATUS:Auth (Verified) BODY SITE: SOURCE:Blood COLLECTED DATE/TIME:06/13/21 1:49 PMBlood Culture, Second Order SPECIMEN DESCRIPTION : BLOOD NO SITE SPECIAL REQUESTS : NONE CULTURE : NO GROWTH 5 DAYS. REPORT STATUS : FINAL 06/18/2021TEST:Blood Culture STATUS:Auth (Verified) BODY SITE: SOURCE:Blood COLLECTED DATE/TIME:06/13/21 1:46 PMBlood Culture SPECIMEN DESCRIPTION : BLOOD NO SITE SPECIAL REQUESTS : NONE CULTURE : NO GROWTH 5 DAYS. REPORT STATUS : FINAL 06/18/2021TEST:Urine Culture STATUS:Auth (Verified) BODY SITE: SOURCE:URINE COLLECTED DATE/TIME:06/13/21 12:05 PMUrine Culture SPECIMEN DESCRIPTION : URINE SPECIAL REQUESTS : NONE CULTURE : >100,000 COL/ML ESCHERICHIA COLI REPORT STATUS : FINAL 06/15/2021 ORGANISM >100,000 COL/ML ESCHERICHIA COLI METHOD MIN. INHIB. CONC. (MCG/ML) AMPICILLIN RESISTANT AMPICILLIN/SULBACTAM INTERMEDIATE AMOXICILLIN/CLAVULAN SUSCEPTIBLE CEFAZOLIN SUSCEPTIBLE CEFEPIME SUSCEPTIBLE CEFTRIAXONE SUSCEPTIBLE CIPROFLOXACIN RESISTANT ERTAPENEM SUSCEPTIBLE GENTAMICIN SUSCEPTIBLE LEVOFLOXACIN RESISTANT MEROPENEM SUSCEPTIBLE NITROFURANTOIN SUSCEPTIBLE PIPERACILLIN/TAZOBAC SUSCEPTIBLE TRIMETH/SULFAMETHOX RESISTANT TETRACYCLINE RESISTANT Vital Signs Most recent to oldest 1 2 3 [Reference Range]: Height 177 cm 177 cm 177 cm (06/19/21 5:47 AM) (06/18/21 9:33 PM) (06/18/21 9:05 P M) Weight 80 kg 80.1 kg 79 kg (06/16/21 6:44 PM) (06/14/21 4:40 AM) (06/14/21 1:48 AM) Oxygen Saturation [94-100 %] 94 % 95 % 97 % (06/19/21 3:00 PM) (06/19/21 5:47 AM) (06/18/21 9:33 P M) Pulse Rate [55-90 bpm] 62 bpm 56 bpm 55 bpm (06/19/21 3:00 PM) (06/19/21 5:47 AM) (06/18/21 9:33 P M) Body Mass Index [18.5-24.99] 25.54 25.57 25. 22 *H* *H* *H* (06/16/21 6:44 PM) (06/14/21 4:40 AM) (06/14/21 1:48 AM) Blood Pressure [90-138/55-84 162/67 mm Hg 143/67 mm Hg 134 /69 mm Hg mm Hg] *H* *H* (06/19/21 5:47 AM) (06/19/21 3:00 PM) (06/19/21 9:35 AM) Respiratory Rate [16-30 18 br/min 18 br/min 18 br/mi n br/min] (06/19/21 3:00 PM) (06/19/21 5:47 AM) (06/18/21 10:52 PM) Temperature [96.8-100.4 DegF] 98.2 DegF 97.8 DegF 98 .4 DegF (06/19/21 3:00 PM) (06/19/21 5:47 AM) (06/18/21 9:05 P M) Mode of Delivery (Oxygen) Room air Room air Room a ir (06/19/21 3:00 PM) (06/19/21 5:47 AM) (06/18/21 9:33 P M) Blood pressure sites Arm, right Arm, right Arm, left (06/19/21 3:00 PM) (06/19/21 5:47 AM) (06/18/21 9:33 P M) Temperature Route Oral Oral Oral (06/19/21 3:00 PM) (06/19/21 5:47 AM) (06/18/21 9:05 P M) Dry Weight 79 kg 83.2 kg 83.2 kg (06/14/21 1:48 AM) (06/13/21 2:06 PM) (06/13/21 10: 56 AM) Weight Obtained Via Bed scale Bed scale Standing sca le (06/16/21 6:44 PM) (06/14/21 4:40 AM) (06/13/21 10:5 6 AM) Dry Weight Obtained Via Standing scale (06/13/21 10:56 AM) Social History Social History Type Response Smoking Status 10 or more cigarettes (1/2 p ack or more)/day in last 30 days; Type: Cigarettes; Started at age: 25; entered on: 05/18/21 Sex
--- OUTSIDE RECORDS SUMMARY | 2022-06-16 20:11 | XMS_ITS | Continuity of Care Document ---
:1950 Author Organization [facility] Address [address] [place] [address]- Care Team Providers Name Role Phone Chris HEAT AND FROST INSULATOR, Avani Winter Primary Care Physician Encounter [facility] Date(s): 12/22/21 - 01/21/22 [facility] [address] [place], [place] [id number] Allergies, Adverse Reactions, Alerts No Known Allergies Immunizations Given and Recorded Vaccine Date Status Refusal Reason influenza virus vaccine, inactivated 04/26/21 Given Medications amiodarone 200 mg oral tablet 1, tablet, By Mouth, Daily, for 30 days, # 30 tablet, Refills 3, Tot. Refills 3, Physician Stop 03/04/22 11:50:00 EDT, 11/04/21 11:50:00 EDT, Route to Pharmacy Electronically, [facility]/pharmacy #[id number], 177, cm, 07/21/21 11:38:00 EST, Height, 79, kg, ... Start Date: 11/04/21 Stop Date: 03/04/22 Status: Orderedapixaban 5 mg oral tablet 1 tablet = 5 mg, By Mouth, 2 times a day, # 60 tablet, 5 Refills, Maintenance, 10/02/21 12:17:00 EDT, Tablet, [facility]/pharmacy #[id number], Partial fill upon patient request if the prescription is for a scheduleII opioid drug., 177, cm, 07/21/21 11:38:00 EST,... Start Date: 10/02/21 Status: Orderedatorvastatin 40 mg oral tablet 1 tablet, By Mouth, Daily, for 90 days, # 90 tablet, 0 Refills, Physician Stop 04/01/22 12:02:00 EST, 01/01/22 12:02:00 EDT, [facility]/pharmacy #[id number], 177, cm, 07/21/21 11:38:00 EST, Height, 79, kg, :29:00 EST, Dry Weight Start Date: 01/01/22 Stop Date: 04/01/22 Status: Orderedfurosemide 40 mg oral tablet 1, tablet, By Mouth, 2 times a day, # 60 tablet, Refills 5, Tot. Refills 5, 10/02/21 12:17:00 EDT, Route to Pharmacy Electronically, [facility]/pharmacy #[id number], 177, cm, 07/21/21 11:38:00 EST, Height, 79, kg, 06/14/21 2:29:00 EST, Dry Weight Start Date: 10/02/21 Status: OrderedHome Blood Pressure Monitor See Instructions, [...] 12/24/21 2:11:00 EDT, Route to Pharmacy Electronically, [facility]/pharmacy #[id number], 177, cm, 07/21/21 11:38:00 EST, Height, 79, kg, 06/14/21 2:29:00 EST, Dry Weight Start Date: 12/24/21 Status: Orderedisosorbide mononitrate 30 mg oral tablet, extended release 3 tablet, By Mouth, Daily, # 90 tablet, 0 Refills, 01/01/22 12:02:00 EDT, [facility]/pharmacy #[id number], 177, cm, 07/21/21 11:38:00 EST, Height, 79, kg, 06/14/21 2:29:00 EST, Dry Weight Start Date: 01/01/22 Status: Orderedlisinopril 40 mg oral tablet 1 tablet, By Mouth, Daily, # 30 tablet, 2 Refills, Maintenance, 01/19/22 18:52:00 EDT, [facility], 177, cm, 07/21/21 11:38:00 EST, Height, 79, kg, 06/14/21 2:29:00 EST, Dry Weight Start Date: 01/19/22 Status: OrderedTylenol 325 mg oral tablet 975 mg, 3, tablet, By Mouth, Every 8 hours, # 90 tablet, Refills 0, Tot. Refills 0, Maintenance, 05/01/21 12:13:00 EST, Route to Pharmacy Electronically, [facility], Partial fill upon patient [...] Care Team PersonnelName: Avani Perez NP Address: [address] [place] [id number]
--- OUTSIDE RECORDS SUMMARY | 2022-06-16 20:11 | XMS_ITS | Continuity of Care Document ---
:1950 Author Organization [facility] Address [address] [place] [address]- Care Team Providers Name Role Phone En VASQUEZ, Javier ALVAREZ Primary Care Physician Unavailable [place] [facility] [place] - 05/02/[address] [address] Encounter Diagnosis CHF (congestive heart failure) (Final) - 05/01/21 Discharge Disposition: A-D/C Home Attending Physician: Yohan Bishop DO Admitting Physician: Neela Elmore MD Referring Physician: Not on Staff, Referring MD Allergies, Adverse Reactions, Alerts Substance Reaction Severity Status NKA Active Immunizations Given and Recorded Vaccine Date Status Refusal Reason influenza virus vaccine, inactivated 04/26/21 Given Medications amiodarone 200 mg oral tablet See Instructions, Take 2 tabs twice daily 05/01-05/04 and take one tablet daily starting 05/05., # 42 tablet, Refills 0, Tot. Refills 0, Maintenance, 05/01/21 12:10:00 EST, Instructions Replace Required Details, Route to Pharm[facility] Start Date: 05/01/21 Status: Orderedapixaban 5 mg oral tablet 1 tablet = 5 mg, By Mouth, 2 times a day, # 60 tablet, 0 Refills, Maintenance, 05/01/21 12:11:00 EST, Tablet, [facility], Partial fill upon patient request if the prescription is for a schedule II opioid drug., 175, cm, 05/01/21 3:31:00... Start Date: 05/01/21 Status: Orderedatorvastatin 40 mg oral tablet 1 tablet = 40 mg, By Mouth, Daily, # 30 tablet, 0 Refills, Maintenance, 05/02/21 8:00:00 EST, Tablet, [facility], Partial fill upon patient request if the prescription is for a schedule II opioid drug., 175, cm, 05/02/21 7:47:00 EST, Hei... Start Date: 05/02/21 Status: OrderedCoreg 6.25 mg oral tablet 6.25 mg, Tablet, By Mouth, Hold for: HR < 55 or SBP < 90 torr, 05/01/21 21:00:00 EST Start Date: 05/01/21 Stop Date: 05/01/21 Status: CompletedhydrALAZINE 25 mg oral tablet 75 mg, Tablet, By Mouth, 05/01/21 21:00:00 EST Start Date: 05/01/21 Stop Date: 05/01/21 Status: CompletedhydrALAZINE 25 mg oral tablet 75 mg, 3, tablet, By Mouth, 2 times a day, # 180 tablet, Refills 0, Tot. Refills 0, Maintenance, 05/01/21 12:11:00 EST, Route to Pharmacy Electronically, [facility], Partial fill upon patient request if the prescription is for a schedule... Start Date: 05/01/21 Status: Orderedisosorbide mononitrate 30 mg oral tablet, extended release 90 mg, 3, tablet, By Mouth, Daily, # 90 tablet, Refills 0, Tot. Refills 0, Maintenance, 05/01/21 12:11:00 EST, Route to Pharmacy Electronically, [facility], Partial fill upon patient request if the prescription is for a schedule II opioi... Start Date: 05/01/21 Status: OrderedLasix 40 mg oral tablet 40 mg, 1, tablet, By Mouth, 2 times a day, # 60 tablet, Refills 0, Tot. Refills 0, Maintenance, 05/01/21 12:14:00 EST, Route to Pharmacy Electronically, [facility], Partial fill upon patient request if the prescription is for a schedule... Start Date: 05/01/21 Status: Orderedlisinopril 40 mg oral tablet 1 tablet = 40 mg, By Mouth, Daily, # 30 tablet, 0 Refills, Maintenance, 05/02/21 8:01:00 EST, Tablet, [facility], Partial fill upon patient request if the prescription is for a schedule II opioid drug., 175, cm, 05/02/21 7:47:00 EST, Hei... Start Date: 05/02/21 Status: OrderedNicoderm C-Q Clear 21 mg/24 hr transdermal film, extended release 1 patch, Topically, Daily, # 30 patch, 0 Refills, Acute 06/01/21 12:12:00 EST, 05/01/21 12:12:00 EST, Patch, [facility], Partial fill upon patient request if the prescription is for a schedule II opioid drug., 175, cm, 05/01/21 3:31:00 E... Start Date: 05/01/21 Stop Date: 06/01/21 Status: OrderedTylenol 325 mg oral tablet 975 mg, 3, tablet, By Mouth, Every 8 hours, # 90 tablet, Refills 0, Tot. Refills 0, Maintenance, 05/01/21 12:13:00 EST, Route to Pharmacy Electronically, [facility], Partial fill upon patient [...] for Microbiology Reports Name Date Blood Culture 04/25/21 Microbiology Reports TEST:Blood Culture STATUS:Auth (Verified) BODY SITE: SOURCE:Blood COLLECTED DATE/TIME:04/25/21 8:47 AMBlood Culture SPECIMEN DESCRIPTION : BLOOD SPECIAL REQUESTS : NONE CULTURE : NO GROWTH 5 DAYS. REPORT STATUS : FINAL 04/30/2021 Vital Signs Most recent to oldest 1 2 3 4 [Reference Range]: Height 175 cm 175 cm 175 cm (05/02/21 7:47 AM) (05/02/21 2:54 AM) (05/01/21 7:47 P M) Weight 83 kg 84.3 kg 84.3 kg (05/02/21 5:13 AM) (04/29/21 11:26 PM) (04/29/21 5:40 AM) Oxygen Saturation 98 % 97 % 97 % [94-100 %] (05/02/21 7:47 AM) (05/02/21 2:54 AM) (05/01/21 7:47 P M) Pulse Rate [55-90 53 bpm 72 bpm 64 bpm bpm] *L* (05/02/21 2:54 AM) (05/01/21 9:35 PM) (05/02/21 7:47 AM) Body Mass Index 28.24 [18.5-24.99] *H* (04/25/21 8:32 AM) Blood Pressure 141/82 mm Hg 123/77 mm Hg 154/85 mm Hg 154/85 mm Hg [90-138/55-84 mm Hg] *H* (05/02/21 2:54 AM) *H* * H* (05/02/21 7:47 AM) (05/01/21 9:35 PM) ( 9:35 PM) Respiratory Rate 18 br/min 16 br/min 18 br/min [16-30 br/min] (05/02/21 7:47 AM) (05/02/21 2:54 AM) (05/01/21 7:47 PM) Temperature 97.4 DegF 97.8 DegF 98.9 DegF [96.8-100.4 DegF] (05/02/21 7:47 AM) (05/02/21 2:54 AM) (05/01/21 7 :47 PM) Liters per Minute 8 L/min (04/28/21 4:01 PM) Mode of Delivery Room air Room air Room air (Oxygen) (05/02/21 7:47 AM) (05/02/21 2:54 AM) (05/01/21 7:47 P M) Blood pressure sites Arm, right Arm, left Arm, right (05/02/21 7:47 AM) (05/02/21 2:54 AM) (05/01/21 7:47 P M) Temperature Route Temporal Temporal Temporal (05/02/21 7:47 AM) (05/02/21 2:54 AM) (05/01/21 7:47 P M) Dry Weight 80 kg 86.5 kg (04/25/21 4:58 PM) (04/25/21 8:32 AM) Weight Obtained Via Bed scale Bed scale Bed scale (05/02/21 5:13 AM) (04/28/21 6:11 AM) (04/27/21 7:19 A M) Dry Weight Obtained Patient/family stated Via (04/25/21 8:32 AM) Social History Social History Type Response Smoking Status 10 or more cigarettes (1/2 p ack or more)/day in last 30 days entered on: 04/25/21 Sex
--- OUTSIDE RECORDS SUMMARY | 2022-06-16 20:11 | XMS_ITS | Continuity of Care Document ---
:1950 Author Organization [facility] Address [address] [place] [address]- Care Team Providers Name Role Phone Avani Perez NP Primary Care Physician En[place] [facility] [place] Date(s): 05/28/21 - 06/27/21 [facility] [address] [place] [address]- [place] Allergies, Adverse Reactions, Alerts No Known Allergies [...] 05/01/21 12:13:00 EST, Route to Pharmacy Electronically, [facility], Partial fill upon patient request if [...]
--- OUTSIDE RECORDS SUMMARY | 2022-06-16 20:11 | XMS_ITS | Continuity of Care Document ---
:1950 Author Organization [facility] Address [address] [place] [address]- Care Team Providers Name Role Phone Chris NUR, Avani Winter Primary Care Physician Encounter [facility] Date(s): 04/28/21 - 05/28/21 [facility] [address] [place] [address]- Allergies, Adverse Reactions, Alerts No Known Allergies Immunizations Given and Recorded Vaccine Date Status Refusal Reason influenza virus vaccine, inactivated 04/26/21 Given Medications amiodarone 200 mg oral tablet 200 mg, 1, tablet, By Mouth, Daily, # 42 tablet, Refills 0, Tot. Refills 0, Maintenance, 05/01/21 12:10:00 EST, Route to Pharmacy Electronically, [facility], Partial fill upon patient request if the prescription is for a schedule II opio... Start Date: 05/01/21 Status: Orderedapixaban 5 mg oral tablet 1 tablet = 5 mg, By Mouth, 2 times a day, # 60 tablet, 0 Refills, Maintenance, 05/01/21 12:11:00 EST, Tablet, [facility], Partial fill upon patient request if the prescription is for a schedule II opioid drug., 175, cm, 05/01/21 3:31:00... Start Date: 05/01/21 Status: Orderedatorvastatin 40 mg oral tablet 1 tablet = 40 mg, By Mouth, Daily, # 30 tablet, 0 Refills, Maintenance, 05/02/21 8:00:00 EST, Tablet, [facility], Partial fill upon patient request if the prescription is for a schedule II opioid drug., 175, cm, 05/02/21 7:47:00 EST, Hei... Start Date: 05/02/21 Status: OrderedhydrALAZINE 25 mg oral tablet 75 mg, 3, tablet, By Mouth, 2 times a day, # 180 tablet, Refills 0, Tot. Refills 0, Maintenance, 05/01/21 12:11:00 EST, Route to Pharmacy Electronically, [facility], Partial fill upon patient request if the prescription is for a schedule... Start Date: 05/01/21 Status: Orderedisosorbide mononitrate 30 mg oral tablet, extended release 90 mg, 3, tablet, By Mouth, Daily, # 90 tablet, Refills 0, Tot. Refills 0, Maintenance, 05/01/21 12:11:00 EST, Route to Pharmacy Electronically, [facility], Partial fill upon patient request if the prescription is for a schedule II opioi... Start Date: 05/01/21 Status: OrderedLasix 40 mg oral tablet 40 mg, 1, tablet, By Mouth, 2 times a day, # 60 tablet, Refills 0, Tot. Refills 0, Maintenance, 05/01/21 12:14:00 EST, Route to Pharmacy Electronically, [facility], Partial fill upon patient request if the prescription is for a schedule... Start Date: 05/01/21 Status: Orderedlisinopril 40 mg oral tablet 1 tablet = 40 mg, By Mouth, Daily, # 30 tablet, 0 Refills, Maintenance, 05/02/21 8:01:00 EST, Tablet, [facility], Partial fill upon patient request if the prescription is for a schedule II opioid drug., 175, cm, 05/02/21 7:47:00 EST, Hei... Start Date: 05/02/21 Status: OrderedTylenol 325 mg oral tablet 975 mg, 3, tablet, By Mouth, Every 8 hours, # 90 tablet, Refills 0, Tot. Refills 0, Maintenance, 05/01/21 12:13:00 EST, Route to Pharmacy Electronically, [facility], Partial fill upon patient request [...]
--- OUTSIDE RECORDS SUMMARY | 2022-06-16 20:11 | XMS_ITS | Continuity of Care Document ---
:1950 Author Organization [facility] Address [address] [place] [address]- Care Team Providers Name Role Phone Chris NUR, Avani Winter Primary Care Physician [place] [facility] [place] 06/13/21 [place] 07/13/21 [facility] [address], [place] [address] Attending Physician: Sumi Chen Admitting [...] 05/01/21 12:13:00 EST, Route to Pharmacy Electronically, [facility], Partial fill upon patient [...]
--- OUTSIDE RECORDS SUMMARY | 2022-06-16 20:11 | XMS_ITS | Continuity of Care Document ---
:1950 Author Organization [facility] Address [address] [place] [address]- Care Team Providers Name Role Phone Chris NUR, Avani Winter Primary Care Physician [place] [facility] [place]s): 06/13/21 - 06/20/21 [facility] [address] [place], [place] [address] Attending Physician: Jessica Coughlin MD Referring Physician: [...] Acute06/25/21 23:59:00 EST, 06/19/21 10:09:00 EST, Tablet, [facility], Partial fill upon patient request if the prescription is for a schedul... Start Date: 06/19/21 Stop Date: 06/25/21 Status: OrderedLasix 40 mg oral tablet 40 [...] 05/01/21 12:13:00 EST, Route to Pharmacy Electronically, [facility], Partial fill upon patient [...]
--- OUTSIDE RECORDS SUMMARY | 2022-06-16 20:11 | XMS_ITS | Continuity of Care Document ---
:1950 Author Organization [facility] Address [address] [place] [address]- Care Team Providers Name Role Phone Chris NUR, Chevy Winter Primary Care Physician Encounter [facility] Date(s): 02/23/22 - 03/25/[address] [address]- Allergies, Adverse Reactions, Alerts No Known Allergies [...] Stop 04/01/22 12:02:00 EST, 01/01/22 12:02:00 EDT, [facility]/pharmacy #[id number], 177, cm, 07/21/21 11:38:00 EST, Height, 79, kg, :29:00 EST, Dry Weight Start Date: 01/01/22 Stop Date: 04/01/22 Status: OrderedEliquis 5 mg oral tablet 1 tablet, By Mouth, 2 times a day, # 60 tablet, 5 Refills, Maintenance, 03/23/22 12:38:00 EST, [facility], 177, cm, 03/23/22 11:49:00 EST, Height, 79, kg, 06/14/21 2:29:00 EST, Dry Weight Start Date: 03/23/22 Status: Orderedfurosemide 40 mg oral tablet 1, tablet, By Mouth, 2 times a day, # 180 tablet, Refills 1, Maintenance, 01/24/22 12:02:00 EDT, Route to Pharmacy Electronically, [facility], 177, cm, 07/21/21 11:38:00 EST, Height, 79, [...] 02/24/22 15:55:00 EDT, Route to Pharmacy Electronically, [facility]/pharmacy #[id number], 177, cm, 07/21/21 11:38:00 EST, Height, 79, kg, 06/14/21 2:29:00 EST, Dry Weight Start Date: 02/24/22 Status: Orderedisosorbide mononitrate 30 mg oral tablet, extended release 3 tablet, By Mouth, Daily, # 90 tablet, 0 Refills, 01/01/22 12:02:00 EDT, [facility]/pharmacy #[id number], 177, cm, 07/21/21 11:38:00 EST, Height, 79, kg, 06/14/21 2:29:00 EST, Dry Weight Start Date: 01/01/22 Status: Orderedlisinopril 40 mg oral tablet 1 tablet, By Mouth, Daily, # 30 tablet, 2 Refills, Maintenance, 01/19/22 18:52:00 EDT, [facility], 177, cm, 07/21/21 11:38:00 EST, Height, 79, kg, 06/14/21 2:29:00 EST, Dry Weight Start Date: 01/19/22 Status: OrderedTylenol 325 mg oral tablet 975 mg, 3, tablet, By Mouth, Every 8 hours, # 90 tablet, Refills 0, Tot. Refills 0, Maintenance, 05/01/21 12:13:00 EST, Route to Pharmacy Electronically, [facility], Partial fill upon patient [...] Care Team PersonnelName: Mary Seals RN Position: [facility] RN Member Role: Primary Care Nurse Name: Chevy Perez NP Position: [facility] PCO Associate Professional Member Role: PCP Address: Address: [address] [place] [address]- Name: Meggan Bennett RN Position: [facility] Hospital Dietitian Consultant Member Role: Primary Care Nurse Care Team Related PersonsName: CHIKIS MASON Name: CHEVY MASON Address: home [address] [place] [address]
--- OUTSIDE RECORDS SUMMARY | 2022-06-16 20:11 | XMS_ITS | Continuity of Care Document ---
:1950 Author Organization [facility] Address [address] [place] [address]- Care Team Providers Name Role Phone Chris NUR, Chevy Winter Primary Care Physician Encounter [facility] Date(s): 04/28/22 - 05/28/[address] [address]- Allergies, Adverse Reactions, Alerts No Known Allergies [...] tablet, 0 Refills, Maintenance, 03/26/22 7:41:00 EST, [facility]/pharmacy #0278, Office visit needed for further refills., 177, cm, 03/25/22 10:46:00 EST, Height, 79, kg, 06/14/21 2:29:00 EST, Dry Weight Start Date: 03/26/22 Status: OrderedEliquis 5 mg oral tablet 1 tablet, By Mouth, 2 times a day, # 60 tablet, 0 Refills, Maintenance, 04/26/22 12:01:00 EST, [facility], 177, cm, 03/25/22 10:46:00 EST, Height, 79, kg, 06/14/21 2:29:00 EST, Dry Weight Start Date: 04/26/22 Status: OrderedEliquis 5 mg oral tablet See Instructions, TAKE 1 TABLET BY MOUTH TWICE A DAY, # 60 tablet, 0 Refills, Maintenance, 05/17/22 16:15:00 EST, [facility], 177, cm, 03/25/22 10:46:00 EST, Height, 79, kg, 06/14/21 2:29:00 EST, Dry Weight Start Date: 05/17/22 Status: Orderedfurosemide 40 mg oral tablet 1, tablet, By Mouth, 2 times a day, # 180 tablet, Refills 1, Maintenance, 01/24/22 12:02:00 EDT, Route to Pharmacy Electronically, [facility], 177, cm, 07/21/21 11:38:00 EST, Height, 79, [...] times a day, # 180 tablet, Refills 5, Maintenance, 05/24/22 13:01:00 EST, Route to Pharmacy Electronically, [facility], 177, cm, 03/25/22 10:46:00 EST, Height, 79, kg, 06/14/21 2:29:00 EST, Dry Weight Start Date: 05/24/22 Status: Orderedisosorbide mononitrate 30 mg oral tablet, extended release 3 tablet, By Mouth, Daily, # 90 tablet, 0 Refills, 01/01/22 12:02:00 EDT, [facility]/pharmacy #0488, 177, cm, 07/21/21 11:38:00 EST, Height, 79, kg, 06/14/21 2:29:00 EST, Dry Weight Start Date: 01/01/22 Status: Orderedlisinopril 40 mg oral tablet 1 tablet, By Mouth, Daily, # 90 tablet, 0 Refills, Maintenance, 03/26/22 7:41:00 EST, [facility]/pharmacy #[id number], Office visit needed for further refills., 177, cm, 03/25/22 10:46:00 EST, Height, 79, kg, 06/14/21 2:29:00 EST, Dry Weight Start Date: 03/26/22 Status: OrderedTylenol 325 mg oral tablet 975 mg, 3, tablet, By Mouth, Every 8 hours, # 90 tablet, Refills 0, Tot. Refills 0, Maintenance, 05/01/21 12:13:00 EST, Route to Pharmacy Electronically, [facility], Partial fill upon patient request if [...] Active x40 years recently decreased to 1/2ppd Vital Signs Most recent to oldest [Reference Range]: 1 Blood Pressure [90-138/55-84 mm Hg] 134/77 mm Hg (05/25/22 3:12 PM) Social History Social History Type Response Smoking Status 10 or more cigarettes (1/2 p ack or more)/day in last 30 days; Type: Cigarettes; Started at age: 25; entered on: 05/18/21 Sex Patient Care team information Care Team PersonnelName: Mary Seals RN Position: [facility] RN Member Role: Primary Care Nurse Name: Chevy Perez NP Position: [facility] PCO Associate Professional Member Role: PCP Address: Address: [address] [place] [email or web address]] Name: Meggan Bennett RN Position: [facility] [employer] [facility] Member Role: Primary Care Nurse Care Team Related PersonsName: CHIKIS MASON Name: ISABELLA CHEVY Address: home [address] [place] [id number]
--- OUTSIDE RECORDS SUMMARY | 2022-06-16 20:11 | XMS_ITS | Continuity of Care Document ---
:1950 Author Organization [facility] Address [address] [place] [address]- Care Team Providers Name Role Phone Chris SALES CENTER ASSOCIATE, Avani Winter Primary Care Physician Encounter [facility] Date(s): 12/23/21 - 01/22/22 [facility] [address] [place], [place] [address] Allergies, Adverse Reactions, Alerts No Known Allergies Immunizations Given and Recorded Vaccine Date Status Refusal Reason influenza virus vaccine, inactivated 04/26/21 Given Medications amiodarone 200 mg oral tablet 1, tablet, By Mouth, Daily, for 30 days, # 30 tablet, Refills 3, Tot. Refills 3, Physician Stop 03/04/22 11:50:00 EDT, 11/04/21 11:50:00 EDT, Route to Pharmacy Electronically, [facility]/pharmacy #[id number], 177, cm, 07/21/21 11:38:00 EST, Height, 79, kg, ... Start Date: 11/04/21 Stop Date: 03/04/22 Status: Orderedapixaban 5 mg oral tablet 1 tablet = 5 mg, By Mouth, 2 times a day, # 60 tablet, 5 Refills, Maintenance, 10/02/21 12:17:00 EDT, Tablet, [facility]/pharmacy #[id number], Partial fill upon patient request if the prescription is for a scheduleII opioid drug., 177, cm, 07/21/21 11:38:00 EST,... Start Date: 10/02/21 Status: Orderedatorvastatin 40 mg oral tablet 1 tablet, By Mouth, Daily, for 90 days, # 90 tablet, 0 Refills, Physician Stop 04/01/22 12:02:00 EST, 01/01/22 12:02:00 EDT, [facility]/pharmacy #[id number], 177, cm, 07/21/21 11:38:00 EST, Height, 79, kg, :29:00 EST, Dry Weight Start Date: 01/01/22 Stop Date: 04/01/22 Status: Orderedfurosemide 40 mg oral tablet 1, tablet, By Mouth, 2 times a day, # 60 tablet, Refills 5, Tot. Refills 5, 10/02/21 12:17:00 EDT, Route to Pharmacy Electronically, [facility]/pharmacy #[id number], 177, cm, 07/21/21 11:38:00 EST, Height, [...] 12/24/21 2:11:00 EDT, Route to Pharmacy Electronically, [facility]/pharmacy #[id number], 177, cm, 07/21/21 11:38:00 EST, Height, 79, kg, 06/14/21 2:29:00 EST, Dry Weight Start Date: 12/24/21 Status: Orderedisosorbide mononitrate 30 mg oral tablet, extended release 3 tablet, By Mouth, Daily, # 90 tablet, 0 Refills, 01/01/22 12:02:00 EDT, [facility]/pharmacy #[id number], 177, cm, 07/21/21 11:38:00 EST, Height, 79, kg, 06/14/21 2:29:00 EST, Dry Weight Start Date: 01/01/22 Status: Orderedlisinopril 40 mg oral tablet 1 tablet, By Mouth, Daily, # 30 tablet, 2 Refills, Maintenance, 01/19/22 18:52:00 EDT, [facility], 177, cm, 07/21/21 11:38:00 EST, Height, 79, kg, 06/14/21 2:29:00 EST, Dry Weight Start Date: 01/19/22 Status: OrderedTylenol 325 mg oral tablet 975 mg, 3, tablet, By Mouth, Every 8 hours, # 90 tablet, Refills 0, Tot. Refills 0, Maintenance, 05/01/21 12:13:00 EST, Route to Pharmacy Electronically, [facility], Partial fill upon patient [...] Care Team PersonnelName: Avani Perez NP Address: [address] [place] [address]
[2022-06-16 21:05] LABS: Appearance Urine Clear; Color Urine Yellow; Glucose Urine UA Negative (Negative); Leukocyte Esterase Urine Trace (Negative); Nitrite Urine Positive (Negative); PH 5.5 (5.0-9.0); Specific Gravity - Urine 1.015 (1.005-1.025); UMIC TRIGGER UACC YES; Urine Blood Negative (Negative); Urine Ketones Negative (Negative); Urine Protein Negative (Neg-Trace)
[2022-06-16 21:10] LABS: Bacteria Urine 4+ (None Seen); Hyaline Casts Urine 0-2 /LPF (0-2); RBC Urine 0-2 /HPF (0-2); Squamous Epithelial Cell Urine 0-2 /HPF (0-2); UACC Culture Trigger YES; WBC Urine 0-5 /HPF (0-5)
== END 2022-06-16 22:12 | disposition home or self-care (01) ==
PROVIDERS: Nurse Practitioner Family; Emergency Provider Emergency Medicine Emergency Medical Services
DX: N39.0 Urinary tract infection, site not specified (principal); N41.0 Acute prostatitis; R35.0 Frequency of micturition; R30.0 Dysuria; R19.7 Diarrhea, unspecified; Z79.899 Other long term (current) drug therapy
CPT/HCPCS: 36415; 80048; 81001; 85025; 87086; 87088; 87186; 99282; 99283

== ENCOUNTER 2022-06-26 07:33 | Emergency (ER) | payer OTHER, SELFPAY ==
--- NOTE | 2022-06-26 | ECG_ITS ---
Test Reason : STOMACH PAIN Blood Pressure : / mmHG Vent. Rate : 061 BPM Atrial Rate : 061 BPM P-R Int : 288 ms QRS Dur : 086 ms QT Int : 434 ms P-R-T Axes : 094 025 081 degrees QTc Int : 436 ms Sinus rhythm with 1st degree A-V block with Premature atrial complexes Otherwise normal ECG No previous ECGs available Referred By: Generic ED Physician Electronically Signed By:ALYSSA CACERES MD
--- NOTE | ~2022-06-26 | XR_ITS ---
EXAMINATION: XR ABDOMEN KUB CLINICAL INDICATION: Central abdominal pain. COMPARISON: None TECHNIQUE: AP supine views of the abdomen. FINDINGS: Moderate air throughout the large and small bowel. Air extends to the level of the rectum. Mildly prominent central small-bowel loops. No colonic dilatation. No abnormal soft tissue calcification. No acute osseous abnormality. XR/XR KUB IMPRESSION: Moderate air throughout the large and small bowel with mild dilatation of the central small-bowel loops. Nonobstructive bowel gas pattern with air extending to the rectum.
--- NOTE | ~2022-06-26 | CT_ITS ---
EXAMINATION: CT ABDOMEN AND PELVIS WITHOUT CONTRAST CLINICAL INFORMATION: Abdominal pain. COMPARISON: None TECHNIQUE: Multidetector volumetric imaging was performed from the superior aspect of the liver through the pubic symphysis. Sagittal and coronal reformatted images were obtained on the technologist's workstation. This CT examination was performed using dose optimization techniques as appropriate, variously including the following: *Automated exposure control *Adjustment of mA and/or kV according to patient size (this includes techniques or standardized protocols for targeted exams where dose is matched to indication/reason for exam; i.e. extremities or head) *Use of iterative reconstruction technique DLP: 717 mGy-cm FINDINGS: LUNG BASES: The visualized lung bases are unremarkable. Mild multiple low-attenuation liver lesions. Bilateral symmetrical gynecomastia. LIVER, GALLBLADDER, AND BILIARY TREE: The liver is normal in size, contour and attenuation. Innumerable scattered hypodense liver lesions of varying sizes, ranging from a few millimeters to the largest discrete one in the left hepatic lobe measuring 2 cm are noted. The lesions greater than 1 cm in size represent cysts by CT Hounsfield unit criteria. Subcentimeter lesions are too small to characterize accurately, however, probably represent cysts. No biliary ductal dilatation. The gallbladder is unremarkable with no evidence of radiopaque gallstones, gallbladder wall thickening, or obvious pericholecystic inflammatory changes. PANCREAS: Unremarkable. SPLEEN: Unremarkable. ADRENAL GLANDS: Right adrenal gland is normal. There is thickening of the lateral limb of the left adrenal gland without discrete nodule. KIDNEYS AND URETERS: The kidneys are normal in size, shape and attenuation. There is a 0.3 cm nonobstructing calculus in the left upper to mid kidney. Likely tiny calculus in the right mid kidney. A 1.2 cm partially exophytic hypodense lesion from the upper to mid right kidney posteriorly represents a cyst by CT Hounsfield units criteria and no further imaging follow up of this finding is warranted. A 0.6 cm exophytic hypodense to slightly isodense lesion is noted from the left mid kidney laterally (series 4 image 361, series 5 image 65) is too small to characterize accurately, however, statistically likely represents a cyst. No further imaging follow up of this finding is warranted, unless clinically indicated otherwise. BLADDER: Unremarkable. GASTROINTESTINAL TRACT: The stomach and small bowel are not abnormally dilated. The colon is normal in caliber. There is no evidence of colonic wall thickening or pericolonic fat stranding. An appendix is normal. Extensive diverticulosis of the descending colon and sigmoid colon and mild diverticulosis of the remainder of the colon, without acute diverticulitis. ABDOMINAL WALL: Right inguinal scrotal fat-containing hernia is incompletely visualized. LYMPH NODES: No evidence of pathologically enlarged lymph nodes. VASCULAR: The aortoiliac vessels are normal in caliber. [id number] calcific atherosclerosis of the aortoiliac vessels. PELVIC VISCERA: The prostate is enlarged. Somewhat wide linear hypodensity is noted in the prostate in the midline which may represent TURP defect. Recommend correlation with surgical history. The prostate protrudes into the bladder base. The prostate measures 4.8 cm in transverse dimension. Seminal vesicles are normal. OSSEOUS STRUCTURES: No acute or suspicious osseous lesions. Diffuse osseous demineralization. Mild subarticular sclerosis is noted in the bilateral femoral heads. Mild spondylosis of the lumbar spine and visualized thoracic spine. CT/CT abdomen pelvis wo IV con IMPRESSION: 1. Bilateral small nonobstructing renal calculi. No evidence of hydroureteronephrosis or perinephric stranding. 2. Innumerable low-attenuation liver lesions scattered throughout the liver, of varying sizes. The lesions greater than 1 cm represent cysts by CT Hounsfield units criteria. Subcentimeter lesions are too small to characterize accurately, however, statistically likely represent cysts. 3. Diverticulosis of the colon, without acute diverticulitis. 4. Prostatomegaly protruding into the bladder base. Suspected TURP defect, recommend correlation with surgical history. 5. No definite acute abnormality noted. Fleischner guidelines were followed.
[2022-06-26 07:52] VITALS: BP 163/82; PULSE 66; RESP 20; TEMP 35.9; O2SAT 97; BMI 28.7
[2022-06-26 08:11] LABS: MANUAL DIFF FLAG NO
[2022-06-26 08:13] LABS: Basophils Percent Auto 0.4 % (0-2); Eosinophils Absolute Auto 0.2 X10*3/uL (0.0-0.4); Eosinophils Percent Auto 2.1 % (0-4); Hematocrit 41.2 % (42.0-52.0); Hemoglobin 13.6 g/dl (14.0-18.0); Imm Gran Abs Auto 0.08 X10*3/uL (0.00-0.03); Imm Gran Pct Auto 0.8 % (0.0-0.4); Lymphocytes Absolute Auto 1.4 X10*3/uL (1.2-4.9); Lymphocytes Percent Auto 13.8 % (20-40); Mean Corpuscular Hemoglobin 31.2 pg (27.0-33.0); Mean Corpuscular Volume 94.5 fL (80.0-98.0); Mean Platelet Volume 9.6 fL (9.4-12.4); Monocytes Absolute Auto 0.8 X10*3/uL (0.1-1.2); Monocytes Percent Auto 7.6 % (2-11); Neutrophils Absolute Auto 7.4 x10*3/uL (2.0-8.3); Neutrophils Percent Auto 75.3 % (45-73); Platelet Count 232 X10*3/uL (160-400); Red Blood Count 4.36 X10*6/uL (4.60-5.80); Red Cell Distribution Width 12.7 % (11.0-16.0); White Blood Count 9.8 X10*3/uL (4.8-10.8)
[2022-06-26 08:28] LABS: Alanine Aminotransferase 16 U/L (0-40); Albumin Level 4.4 g/dL (3.5-5.0); Alkaline Phosphatase 69 U/L (39-117); Anion Gap 13 (12-20); Aspartate Amino Transferase 15 U/L (5-37); Bilirubin Direct 0.2 mg/dL (0.0-0.5); Bilirubin Total 0.6 mg/dL (0.0-1.0); Blood Urea Nitrogen 25 mg/dL (9-16); Carbon Dioxide 27 mmol/L (22-29); Chloride 103 mmol/L (96-108); Creatinine Clr Calc Pharmacy 75.2; Estimated Glomerular Filt Rate > 60; Glucose Random 100 mg/dL (60-115); Lipase 17 U/L (8-78); Potassium 4.4 mmol/L (3.3-5.1); Sodium 139 mmol/L (135-145); Total Protein 7.1 g/dL (6.5-8.0)
[2022-06-26 08:36] LABS: Troponin-I High Sensitivity 11.9 ng/L (<3.5-35.0)
--- NOTE | 2022-06-26 10:09 | ED_ITS ---
HPI - Abdominal Pain General Chief Complaint: Dizziness Stated Complaint: stomach pain, dizzy Time Seen by Provider: 06/26/22 08:43 Source: patient Mode of arrival: ambulatory History of Present Illness HPI narrative: 71-year-old male presents with mid abdominal pain and then felt dizzy afterwards 2 times, patient states symptoms have completely resolved and denies any fever, chills, nausea, vomiting. Patient is currently on double antibiotics for prostatitis. Related Data Previous Rx's Medication Instructions Recorded acetaminophen 500 mg tablet 1,000 mg PO Q6H PRN fever or pain 06/16/22 (Tylenol Extra Strength) #20 tabs ciprofloxacin HCl 500 mg tablet 500 mg PO Q12H 10 days #20 tabs 06/16/22 (Cipro) ibuprofen 400 mg tablet 400 mg PO TID PRN fever or pain 06/16/22 #30 tabs tamsulosin 0.4 mg capsule (Flomax) 0.4 mg PO DAILY #30 caps 06/16/22 cephalexin 500 mg capsule 500 mg PO Q6H 7 days #28 caps 06/21/22 Allergies Allergy/AdvReac Type Severity Reaction Status Date / Time No Known Allergies Allergy Verified 06/16/22 14:35 Review of Systems Review of Systems Pertinent positives and negatives as stated in HPI PMFSH Past Medical History Source: nursing notes reviewed Medical History HTN (hypertension) Social History Social History Smoked in Last 30 Days: Yes Use of substances other than those prescribed or required for medical reasons: No Advance Directives: No Advance Directives Information Provided: No Physical Exam ED Vital Signs: Vital Signs - 24 hr 06/26/22 07:52 06/26/22 10:10 06/26/22 12:20 Temperature 96.7 F L 97.7 F 97.5 F Pulse Rate 66 63 71 Respiratory Rate 20 20 20 Blood Pressure 163/82 H 160/86 H 142/79 H Pulse Oximetry 97 95 96 Oxygen Delivery Method Room Air Room Air Room Air BMI result Body Mass Index 28.7 VITAL SIGNS: Reviewed. GENERAL: Well developed, well nourished, in no acute distress. HEAD: Normocephalic/atraumatic EYES: PERRLA, EOMI LUNGS: Normal breath sounds. No adventitious sounds or accessory muscle use. SpO2<95> CARDIOVASCULAR: Regular rate and rhythm without noted murmurs ABDOMEN: Soft, non-tender, non-distended with bowel sounds. NEUROLOGIC: Alert and oriented x 4. Strength and sensation to light touch were grossly intact x 4. Medical Decision Making Medical Decision Making [facility] Narrative: 71-year-old male presents with mid abdominal pain and I have reviewed all investigations and my interpretation is that patient had a transient episode of abdominal pain without evidence of infection, anemia is chronically stable, BUN is mildly elevated and there were nonobstructive renal calculi noted on the CT scan but otherwise imaging studies are noncontributory. Patient is feeling better. Differential Diagnosis Differential Diagnoses: The differential diagnosis associated with the presentation includes Please see the discussion above Lab Data [facility] Lab Attestation statement: I reviewed the patient's lab results. Please see the discussion above 06/26/22 08:06 06/26/22 08:06 Labs: Lab Results 06/26/22 06/26/22 06/26/22 Range/Units 08:06 08:06 08:06 WBC 9.8 (4.8-10.8) X10*3/uL RBC 4.36 L (4.60-5.80) X10*6/uL Hgb 13.6 L (14.0-18.0) g/dl Hct 41.2 L (42.0-52.0) % MCV 94.5 (80.0-98.0) fL MCH 31.2 (27.0-33.0) pg MCHC 33.0 (31.0-36.0) g/dl RDW 12.7 (11.0-16.0) % Plt Count 232 (160-400) X10*3/uL MPV 9.6 (9.4-12.4) fL Immature Gran % (Auto) 0.8 H (0.0-0.4) % Neut % (Auto) 75.3 H (45-73) % Lymph % (Auto) 13.8 L (20-40) % [place] % (Auto) 7.6 (2-11) % Eos % (Auto) 2.1 (0-4) % Baso % (Auto) 0.4 (0-2) % Lymph # (Auto) 1.4 (1.2-4.9) X10*3/uL [place] # (Auto) 0.8 (0.1-1.2) X10*3/uL Eos # (Auto) 0.2 (0.0-0.4) X10*3/uL Baso # (Auto) 0.0 (0.0-0.2) X10*3/uL Abs Immat Gran (auto) 0.08 H (0.00-0.03) X10*3/uL Absolute Neuts (auto) 7.4 (2.0-8.3) x10*3/uL Absolute Nucleated RBC 0.000 (0.0-0.012) X10*3/uL Nucleated RBC % (auto) 0.0 (0.0-0.2) /100WBC Sodium 139 (135-145) mmol/L Potassium 4.4 (3.3-5.1) mmol/L Chloride 103 (96-108) mmol/L Carbon Dioxide 27 (22-29) mmol/L Anion Gap 13 (12-20) BUN 25 H (9-16) mg/dL Creatinine 1.05 (0.5-1.4) mg/dL Estim Creat Clear Calc 75.2 Estimated GFR > 60 Random Glucose 100 (60-115) mg/dL Calcium 9.0 (8.4-10.2) mg/dL Total Bilirubin 0.6 (0.0-1.0) mg/dL Direct Bilirubin 0.2 (0.0-0.5) mg/dL AST 15 (5-37) U/L ALT 16 (0-40) U/L Alkaline Phosphatase 69 (39-117) U/L Troponin I High Sens 11.9 (<3.5-35.0) ng/L Total Protein 7.1 (6.5-8.0) g/dL Albumin 4.4 (3.5-5.0) g/dL Lipase 17 (8-78) U/L Urine Color Urine Appearance Urine pH (5.0-9.0) Ur Specific Ke[place] (1.005-1.025) Urine Protein (Neg-Trace) mg/dL Urine Glucose (UA) (Negative) mg/dL Urine Ketones (Negative) mg/dL Urine Blood (Negative) Urine Nitrite (Negative) Ur Leukocyte Esterase (Negative) 06/26/22 06/26/22 Range/Units 12:43 12:52 WBC (4.8-10.8) X10*3/uL RBC (4.60-5.80) X10*6/uL Hgb (14.0-18.0) g/dl Hct (42.0-52.0) % MCV (80.0-98.0) fL MCH (27.0-33.0) pg MCHC (31.0-36.0) g/dl RDW (11.0-16.0) % Plt Count (160-400) X10*3/uL MPV (9.4-12.4) fL Immature Gran % (Auto) (0.0-0.4) % Neut % (Auto) (45-73) % Lymph % (Auto) (20-40) % [place]alle % (Auto) (2-11) % Eos % (Auto) (0-4) % Baso % (Auto) (0-2) % Lymph # (Auto) (1.2-4.9) X10*3/uL [place] # (Auto) (0.1-1.2) X10*3/uL Eos # (Auto) (0.0-0.4) X10*3/uL Baso # (Auto) (0.0-0.2) X10*3/uL Abs Immat Gran (auto) (0.00-0.03) X10*3/uL Absolute Neuts (auto) (2.0-8.3) x10*3/uL Absolute Nucleated RBC (0.0-0.012) X10*3/uL Nucleated RBC % (auto) (0.0-0.2) /100WBC Sodium (135-145) mmol/L Potassium (3.3-5.1) mmol/L Chloride (96-108) mmol/L Carbon Dioxide (22-29) mmol/L Anion Gap (12-20) BUN (9-16) mg/dL Creatinine (0.5-1.4) mg/dL Estim Creat Clear Calc Estimated GFR Random Glucose (60-115) mg/dL Calcium (8.4-10.2) mg/dL Total Bilirubin (0.0-1.0) mg/dL Direct Bilirubin (0.0-0.5) mg/dL AST (5-37) U/L ALT (0-40) U/L Alkaline Phosphatase (39-117) U/L Troponin I High Sens 10.9 (<3.5-35.0) ng/L Total Protein (6.5-8.0) g/dL Albumin (3.5-5.0) g/dL Lipase (8-78) U/L Urine Color Yellow Urine Appearance Clear Urine pH 5.5 (5.0-9.0) Ur Specific [place] 1.010 (1.005-1.025) Urine Protein Negative (Neg-Trace) mg/dL Urine Glucose (UA) Negative (Negative) mg/dL Urine Ketones Negative (Negative) mg/dL Urine Blood Negative (Negative) Urine Nitrite Negative (Negative) Ur Leukocyte Esterase Negative (Negative) Independent Interpretation I performed an independent interpretation of an: EKG Interpretation: Sinus rhythm with first-degree AV block and occasional PACs, HR-61, no STEMI, WA-288/QRS/QTC is within normal limits. Radiology Impression Radiologist Impression: My interpretation is in agreement with radiology's impression of the imaging studies. External Record Review External record reviewed: Outpatient record and Prior outpatient labs Critical Care Time Critical Care Time Critical Care Time: Yes Total Critical Care Time: 30 Attestation: I personally attest to this time spent taking care of the patient. Discharge Plan Discharge Clinical Impression: Abdominal discomfort Patient Disposition: Home, Self-Care Instructions: Abdominal Pain (ED) Additional Instructions: 1. Resume all home medications. 2. Please follow-up with your primary care provider on Tuesday morning. Return to the ER for any worsening symptoms. Prescriptions: No Action ciprofloxacin HCl [Cipro] 500 mg tablet 500 mg PO Q12H 10 Days Qty: 20 0RF acetaminophen [Tylenol Extra Strength] 500 mg tablet 1,000 mg PO Q6H PRN (Reason: fever or pain) Qty: 20 0RF tamsulosin [Flomax] 0.4 mg capsule 0.4 mg PO DAILY Qty: 30 0RF ibuprofen 400 mg tablet 400 mg PO TID PRN (Reason: fever or pain) Qty: 30 0RF cephalexin 500 mg capsule 500 mg PO Q6H 7 Days Qty: 28 0RF
[2022-06-26 10:10] VITALS: BP 160/86; PULSE 63; RESP 20; TEMP 36.5; O2SAT 95
[2022-06-26 12:20] VITALS: BP 142/79; PULSE 71; RESP 20; TEMP 36.4; O2SAT 96
[2022-06-26 12:58] LABS: Appearance Urine Clear; Color Urine Yellow; Glucose Urine UA Negative (Negative); Leukocyte Esterase Urine Negative (Negative); Nitrite Urine Negative (Negative); PH 5.5 (5.0-9.0); Urine Blood Negative (Negative); Urine Ketones Negative (Negative); Urine Protein Negative (Neg-Trace)
[2022-06-26 13:14] LABS: Troponin-I High Sensitivity 10.9 ng/L (<3.5-35.0)
== END 2022-06-26 13:45 | disposition home or self-care (01) ==
PROVIDERS: Emergency Provider Student in an Organized Health Care Education/Training Program
DX: R10.9 Unspecified abdominal pain (principal); R42 Dizziness and giddiness; I10 Essential (primary) hypertension; Z79.899 Other long term (current) drug therapy
CPT/HCPCS: 36415; 74018; 74176; 80048; 80076; 81003; 83690; 84484; 85025; 93005; 99284

== ENCOUNTER 2023-02-07 10:21 | Emergency (ER) | payer OTHER, SELFPAY ==
--- NOTE | ~2023-02-07 | XR_ITS ---
EXAMINATION: XR HIP, RIGHT CLINICAL INFORMATION: Right hip pain COMPARISON: None available. TECHNIQUE: Two views of the right hip. FINDINGS: No fracture. Alignment is anatomic. Hip joint space is maintained. Soft tissues are unremarkable. There is thickening of the iliopectineal lines which can be seen with Paget's disease. There is degenerative change in the lower lumbar spine. XR/XR hip RT w PEL1V IMPRESSION: 1. No fracture. 2. Thickening of the iliopectineal lines which can be seen with Paget's disease.
--- NOTE | ~2023-02-07 | US_ITS ---
EXAMINATION: US VENOUS ULTRASOUND WITH DOPPLER LOWER EXTREMITY, RIGHT CLINICAL INFORMATION: Thigh pain COMPARISON: None available. TECHNIQUE: Ultrasound of the deep veins is performed from the hip to the calf with compression sonography and color and pulse Doppler assessment. Spectral analysis with color-flow imaging is performed. FINDINGS: There is normal venous compression and respiratory variation and augmented flow. The visualized common femoral vein, superficial femoral vein, profunda femoral vein, popliteal vein, and the trifurcation region shows no evidence of deep venous thrombosis. US/US venous duplex LE RT IMPRESSION: No DVT demonstrated in the right lower extremity.
[2023-02-07 10:55] VITALS: BP 135/57; PULSE 66; RESP 17; TEMP 36.2; O2SAT 96; BMI 26.3
--- NOTE | 2023-02-07 15:18 | ED_ITS ---
HPI - General Adult General Chief complaint: General Medical Stated complaint: infection uninary Time Seen by Provider: 02/07/23 15:02 Source: patient Mode of arrival: ambulatory Limitations: no limitations History of Present Illness HPI narrative: 72-year-old male presents to ED for increased urinary frequency for few months and secondary complaint also right inner thigh pain for few months. Patient denies any recent trauma, abdominal pain, nausea, vomiting, fever, chills, dysuria, flank pain, or hematuria. patient denies any lower extremity swelling, calf pain, redness, hotness, coolness. Patient admits to chronic testicular/scrotal swelling for years. Patient denies any scrotal testicular pain. Related Data Previous Rx's Medication Instructions Recorded acetaminophen 500 mg tablet 1,000 mg (2 x 500 mg) PO Q6H PRN 06/16/22 (Tylenol Extra Strength) fever or pain #20 tabs ciprofloxacin HCl 500 mg tablet 500 mg PO Q12H 10 days #20 tabs 06/16/22 (Cipro) ibuprofen 400 mg tablet 400 mg PO TID PRN fever or pain 06/16/22 #30 tabs tamsulosin 0.4 mg capsule (Flomax) 0.4 mg PO DAILY #30 caps 06/16/22 cephalexin 500 mg capsule 500 mg PO Q6H 7 days #28 caps 06/21/22 ciprofloxacin HCl 250 mg tablet 250 mg PO Q12H 5 days #10 tabs 02/07/23 naproxen 500 mg tablet 500 mg PO BID PRN pain 7 days #14 02/07/23 tabs Allergies Allergy/AdvReac Type Severity Reaction Status Date / Time No Known Allergies Allergy Verified 06/16/22 14:35 Review of Systems 2 Review of Systems: increase urinary grequency and right inner thigh pain Yes all other systems are reviewed and are negative [facility] Past Medical History Medical History HTN (hypertension) Social History Social History Advance Directives: No Advance Directives Information Provided: Yes Physical Exam ED Vital Signs: Vital Signs - 24 hr 02/07/23 17:23 Temperature 97.8 F Pulse Rate 64 Respiratory Rate 16 Blood Pressure 149/73 H Pulse Oximetry 96 Oxygen Delivery Method Room Air BMI result Body Mass Index 26.3 Const General: cooperative, healthy appearing, comfortable, no acute distress, well developed, alert and awake Orientation/consciousness: oriented to person, oriented to place, oriented to time and patient oriented x3 [facility] Head: Yes normal to inspection, Yes No palpable skull fracture present, Yes normocephalic, Yes atraumatic and No abrasion Eyes General: appearance normal, both eyes and all related structures Neck Neck: Yes normal visual inspection, Yes full ROM, Yes no lymphadenopathy, Yes no meningeal signs, Yes trachea midline, Yes supple, No anterior neck swelling and No tender Chest Chest palpation & inspection: normal inspection of the chest and normal palpation of entire chest wall Resp Effort & Inspection: normal respiratory effort and able to speak in complete sentences Auscultation: clear to auscultation bilaterally Cardio Jugular venous distension: no JVD Heart sounds: S1 normal heart sound present and S2 normal heart sound present GI Inspection: Yes normal to inspection and No abdominal wall ecchymosis Palpation (GI): Soft to palpation, not firm, nontender, no guarding and not rigid General: No CVA tenderness and Yes no CVA tenderness Penis: normal penis and uncircumcised Meatus: meatus normal Scrotum: scrotal swelling ( Chronic for 6 months. Negative for tenderness) bilateral Testes: Testes normal Back/Spine/Pelvis Back: no CVA tenderness, No CVA tenderness and No back tenderness Skin General skin exam: no rashes or lesions noted, elasticity normal and turgor normal Neuro General: oriented to person, oriented to place, oriented to time, patient oriented x3, gait normal, tone normal, moves all extremities, Normal light touch and pain sensation, no meningeal signs, no focal motor deficits, CN's II-XI intact bilaterally and normal sensation to monofilament Extrem General: Yes normal to inspection and Yes full ROM Upper/lower leg/hip images: 2 1. positive for tenderness on palpation. negative for crepitus, ecchymosis, deformity, redness, hotness, coolness, or signs of dislocation Psych Appearance: grossly normal, well kempt and not disheveled Medical Decision Making Medical Decision Making MDM Narrative: 9-year-old male presents to ED for increased urinary frequency and also right inner thigh pain without any trauma. Patient states no chest pain, shortness of breath leg swelling, calf pain, fever, or chills. Patient denies any abdominal pain. Patient not in any distress. Patient's symptoms are chronic but will do ultrasound to make sure there is no DVT and right hip x-ray. UA ordered check for UTI. Patient states history of UTI in the past 5:57pm: right lower extremity ultrasound negative for DVT. Right hip x-ray positive for Paget disease which is expecting in age. Urine shows UTI. Glucose in urine 250. POC 88. Patient denies any known history of diabetes. Patient informed to follow-up with primary care provider for re-evaluation of glucose. Differential Diagnosis Differential Diagnoses: The differential diagnosis associated with the presentation includes ( UTI, kidney stones, DVT, hip fracture, kidney stones) Admission/Observation Consideration of admission/observation: Escalation of care including admission/observation considered Lab Data MDM Lab Attestation statement: I reviewed the patient's lab results. Labs: Lab Results 02/07/23 02/07/23 Range/Units 15:22 16:20 POC Glucose 88 (60-115) mg/dL Urine Color Yellow Urine Appearance Clear Urine pH 5.0 (5.0-9.0) Ur Specific [place] 1.025 (1.005-1.025) Urine Protein Trace (Neg-Trace) mg/dL Urine Glucose (UA) 250 H (Negative) mg/dL Urine Ketones Negative (Negative) mg/dL Urine Blood Negative (Negative) Urine Nitrite Positive H (Negative) Ur Leukocyte Esterase Negative (Negative) Urine RBC 0-2 (0-2) /HPF Urine WBC 0-5 (0-5) /HPF Ur Squamous Epith Cells 0-2 (0-2) /HPF Urine Bacteria 3+ (None Seen) Hyaline Casts 0-2 (0-2) /LPF Independent Interpretation I performed an independent interpretation of an: Plain X-Ray and Ultrasound Radiology Impression Discussion of test interpretation with radiology: I have reviewed the radiologist's reading. Prescription Management I considered prescription management with: Pain Medication and Antibiotic Discharge Plan Discharge Clinical Impression: Acute UTI, Paget disease of bone Patient Disposition: Home, Self-Care Instructions: Urinary Tract Infection in Men (ED) Additional Instructions: you will be discharged with antibiotics. Urine shows urinary tract infection. Please follow-up with your primary care provider. Return to the ED for any abdominal pain, nausea, vomiting, flank pain, fever, chills, dysuria, hematuria, worsening hip pain, worsening thigh pain, leg swelling, calf pain, redness, or any other concerning symptoms. Also follow-up with your primary care provider due to glucose in urine. Prescriptions: New ciprofloxacin HCl 250 mg tablet 250 mg PO Q12H 5 Days Qty: 10 0RF naproxen 500 mg tablet 500 mg PO BID PRN (Reason: pain) 7 Days Qty: 14 0RF No Action ciprofloxacin HCl [Cipro] 500 mg tablet 500 mg PO Q12H 10 Days Qty: 20 0RF acetaminophen [Tylenol Extra Strength] 500 mg tablet 1,000 mg PO Q6H PRN (Reason: fever or pain) Qty: 20 0RF tamsulosin [Flomax] 0.4 mg capsule 0.4 mg PO DAILY Qty: 30 0RF ibuprofen 400 mg tablet 400 mg PO TID PRN (Reason: fever or pain) Qty: 30 0RF cephalexin 500 mg capsule 500 mg PO Q6H 7 Days Qty: 28 0RF Interventions: ED Discharge Assessment Last Done: 02/07/23 18:11 Discharge Date/Time: 02/07/23 18:11 Print Language: Divehi
[2023-02-07 15:33] LABS: Appearance Urine Clear; Color Urine Yellow; Glucose Urine UA 250 mg/dL (Negative); Leukocyte Esterase Urine Negative (Negative); Nitrite Urine Positive (Negative); Specific Gravity - Urine 1.025 (1.005-1.025); UMIC TRIGGER UACC YES; Urine Blood Negative (Negative); Urine Ketones Negative (Negative); Urine Protein Trace mg/dL (Neg-Trace)
[2023-02-07 16:18] LABS: Bacteria Urine 3+ (None Seen); Hyaline Casts Urine 0-2 /LPF (0-2); RBC Urine 0-2 /HPF (0-2); Squamous Epithelial Cell Urine 0-2 /HPF (0-2); UACC Culture Trigger YES; WBC Urine 0-5 /HPF (0-5)
[2023-02-07 16:23] LABS: Glucose, Whole Blood 88 mg/dL (60-115)
[2023-02-07 17:23] VITALS: BP 149/73; PULSE 64; RESP 16; TEMP 36.6; O2SAT 96
--- NOTE | 2023-02-07 17:24 | MHC.EDTECH ---
this pct just assumed care of pt at this time ,vitals sign taken ,pt resting quietly in bed .
== END 2023-02-07 18:11 | disposition home or self-care (01) ==
PROVIDERS: Physician Assistant Medical; Emergency Provider Emergency Medicine
DX: N39.0 Urinary tract infection, site not specified (principal); B96.20 Unspecified Escherichia coli [E. coli] as the cause of diseases classified elsewhere; M88.88 Osteitis deformans of other bones; M79.604 Pain in right leg; I10 Essential (primary) hypertension; Z79.899 Other long term (current) drug therapy
CPT/HCPCS: 73502; 81001; 82947; 87086; 87088; 87186; 93971; 99284

== ENCOUNTER 2023-02-08 10:29 | Emergency (ER) | payer OTHER, SELFPAY ==
[2023-02-08 10:33] VITALS: BP 120/78; PULSE 77; RESP 18; TEMP 36.7; O2SAT 98; BMI 27.3
[2023-02-08 12:17] LABS: Appearance Urine Clear; Color Urine Yellow; Glucose Urine UA Negative (Negative); Leukocyte Esterase Urine Moderate (2+) (Negative); Nitrite Urine Negative (Negative); UMIC TRIGGER UACC YES; Urine Blood Negative (Negative); Urine Ketones Negative (Negative); Urine Protein Negative (Neg-Trace)
[2023-02-08 12:18] LABS: Bacteria Urine Trace (None Seen); Hyaline Casts Urine 0-2 /LPF (0-2); RBC Urine 0-2 /HPF (0-2); UACC Culture Trigger YES; WBC Urine 21-50 /HPF (0-5)
--- NOTE | 2023-02-08 12:22 | ED.MALEGU ---
HPI - Male Genitourinary General Chief complaint: Urogenital-Male Stated complaint: UTI Time Seen by Provider: 02/08/23 11:50 Source: patient Mode of arrival: ambulatory Limitations: no limitations History of Present Illness HPI Narrative: Patient is a 72-year-old male presenting to the emergency department stating that he is not being treated for his UTI with the correct antibiotics. Patient reports that he was previously treated for a UTI earlier this year and that the antibiotics he was initially started on were not appropriate for treating the bacteria causing his infection. Patient states that there was some miscommunication regarding his urine culture results and him being prescribed the appropriate antibiotics. He is stating that he is afraid he was not prescribed the correct antibiotic yesterday. He denies any worsening of symptoms or new symptoms. MD Complaint: dysuria Associated symptoms: Reports denies other symptoms Related Data Previous Rx's Medication Instructions Recorded acetaminophen 500 mg tablet 1,000 mg (2 x 500 mg) PO Q6H PRN 06/16/22 (Tylenol Extra Strength) fever or pain #20 tabs ciprofloxacin HCl 500 mg tablet 500 mg PO Q12H 10 days #20 tabs 06/16/22 (Cipro) ibuprofen 400 mg tablet 400 mg PO TID PRN fever or pain 06/16/22 #30 tabs tamsulosin 0.4 mg capsule (Flomax) 0.4 mg PO DAILY #30 caps 06/16/22 cephalexin 500 mg capsule 500 mg PO Q6H 7 days #28 caps 06/21/22 ciprofloxacin HCl 250 mg tablet 250 mg PO Q12H 5 days #10 tabs 02/07/23 naproxen 500 mg tablet 500 mg PO BID PRN pain 7 days #14 02/07/23 tabs Allergies Allergy/AdvReac Type Severity Reaction Status Date / Time No Known Allergies Allergy Verified 06/16/22 14:35 Review of Systems Review of Systems: As per HPI. Yes all other systems are reviewed and are negative Constitutional: Constitutional: Reports as per HPI [facility] Past Medical History Medical History HTN (hypertension) Social History Social History Advance Directives: No Advance Directives Information Provided: Yes Physical Exam Vital Signs: Vital Signs: Last Vital Signs Temp 98.1 F 02/08/23 10:33 Pulse 77 02/08/23 10:33 Resp 18 02/08/23 10:33 BP 120/78 02/08/23 10:33 Pulse Ox 98 02/08/23 10:33 O2 Del Method Room Air 02/08/23 10:33 BMI result Body Mass Index 27.3 Vital signs have been reviewed and appear to be correct. Blood pressure normal. Heart rate normal. Respiratory rate normal. Temperature normal. Oxygen saturation normal. Const: General: cooperative, healthy appearing and no acute distress Orientation/consciousness: oriented to person, oriented to place, oriented to time and patient oriented x3 Limitations: no limitations HEENT: Head: Yes normocephalic and Yes atraumatic Ears: external ears normal General nose exam: Normal external nose present Face and sinus: Yes face symmetric Mouth: oropharynx normal and moist mucous membranes Throat: Yes uvula midline Eyes: Pupils: Equal, round and reactive pupils present Neck: Neck: Yes normal visual inspection and Yes supple Resp: Effort & Inspection: normal respiratory effort and able to speak in complete sentences Auscultation: clear to auscultation bilaterally Cardio: Rate: regular rate Rhythm: regular rhythm Heart sounds: S1 normal heart sound present and S2 normal heart sound present GI: Palpation (GI): Soft to palpation and nontender Auscultation: normoactive bowel sounds : General: Yes no CVA tenderness Back/Spine/Pelvis: Back: no CVA tenderness Skin: General skin exam: elasticity normal and turgor normal Neuro: General: oriented to person, oriented to place, oriented to time, patient oriented x3, moves all extremities, no focal motor deficits and CN's II-XI intact bilaterally Cranial nerves: Yes Equal, round and reactive pupils present Cognition (Neuro): normal cognition Extrem: General: Yes full ROM, Yes no pedal edema and Yes no calf tenderness Psych: Mental Status: mental status grossly normal Affect: normal affect Thought process: Normal thought process present Medical Decision Making Medical Decision Making MDM Narrative: Patient is a 72-year-old male presenting to the emergency department stating that he is not being treated for his UTI with the correct antibiotics. On exam patient is awake, A+Ox3, VS WNL, afebrile, normal neurological exam without focal deficits, physical exam findings as above. Given reported symptoms and physical exam findings, initial differential includes UTI, pyelonephritis, renal colic. Given that patient denies any new or worsening symptoms, do not feel blood work or imaging is indicated at this time. UA from today shows negative nitrates, yesterday patient was positive for nitrates. Patient's EMR reviewed and patient was seen and evaluated yesterday and prescribed Cipro for a UTI. Only preliminary urine culture findings have been resulted at this time showing urine is positive for greater than [id number] gram-negative rods. Discussed with patient that Cipro is a broad-spectrum antibiotic and will likely cover the bacteria causing his infection. Instructed patient that once final results of urine culture have been obtained, it will be reviewed by a provider and he will be contacted if change in antibiotics is indicated. Patient stating he had some confusion regarding the process of diagnosing and treating UTIs. Plan reviewed with patient in detail. Return precautions discussed at bedside. Patient verbalized understanding of and agreement with plan. Differential Diagnosis Differential Diagnoses: The differential diagnosis associated with the presentation includes As per MDM. Lab Data [facility] Lab Attestation statement: I reviewed the patient's lab results. As per MDM. Labs: Lab Results 02/08/23 Range/Units 11:49 Urine Color Yellow Urine Appearance Clear Urine pH 6.0 (5.0-9.0) Ur Specific [place] 1.020 (1.005-1.025) Urine Protein Negative (Neg-Trace) mg/dL Urine Glucose (UA) Negative (Negative) mg/dL Urine Ketones Negative (Negative) mg/dL Urine Blood Negative (Negative) Urine Nitrite Negative (Negative) Ur Leukocyte Esterase Moderate (2+) H (Negative) Urine RBC 0-2 (0-2) /HPF Urine WBC 21-50 H (0-5) /HPF Ur Squamous Epith Cells 3-5 (0-2) /HPF Urine Bacteria Trace (None Seen) Hyaline Casts 0-2 (0-2) /LPF External Record Review External record reviewed: Inpatient record, Office record and Outpatient record Discharge Plan Discharge Clinical Impression: Urinary tract infection Patient Disposition: Home, Self-Care Instructions: Urinary Tract Infection in Men (DC) Additional Instructions: You were seen in the emergency department yesterday and treated for a UTI with antibiotics. Your urine culture is not yet resulted. If a change in antibiotics is indicated once your urine culture results are back, someone will contact you from the emergency department to notify you of this. If you do not receive a phone call, your antibiotics are appropriate to treat the bacteria causing your infection. Return to the emergency department if you develop worsening pain, persistent vomiting, do not see improvement in symptoms after 48-72 hours on antibiotics, develop a fever 100.4? F or greater, developed back or flank pain, or any other concerning symptoms. Please follow-up with your primary care provider. Prescriptions: No Action ciprofloxacin HCl [Cipro] 500 mg tablet 500 mg PO Q12H 10 Days Qty: 20 0RF acetaminophen [Tylenol Extra Strength] 500 mg tablet 1,000 mg PO Q6H PRN (Reason: fever or pain) Qty: 20 0RF tamsulosin [Flomax] 0.4 mg capsule 0.4 mg PO DAILY Qty: 30 0RF ibuprofen 400 mg tablet 400 mg PO TID PRN (Reason: fever or pain) Qty: 30 0RF cephalexin 500 mg capsule 500 mg PO Q6H 7 Days Qty: 28 0RF ciprofloxacin HCl 250 mg tablet 250 mg PO Q12H 5 Days Qty: 10 0RF naproxen 500 mg tablet 500 mg PO BID PRN (Reason: pain) 7 Days Qty: 14 0RF
== END 2023-02-08 12:41 | disposition home or self-care (01) ==
PROVIDERS: Physician Assistant; Emergency Provider Emergency Medicine
DX: N39.0 Urinary tract infection, site not specified (principal); Z79.899 Other long term (current) drug therapy
CPT/HCPCS: 81001; 81003; 87086; 87088; 87186; 99282; 99283

== ENCOUNTER 2023-02-12 09:16 | Emergency (ER) | payer OTHER, SELFPAY ==
[2023-02-12 09:18] VITALS: BP 155/71; PULSE 61; RESP 18; TEMP 36.3; O2SAT 97; BMI 26.8
[2023-02-12 09:48] VITALS: BP 135/69; PULSE 52; RESP 18; TEMP 36.6; O2SAT 96
--- NOTE | 2023-02-12 10:30 | ED.MALEGU ---
HPI - Male Genitourinary General Chief complaint: Urogenital-Male Stated complaint: uti Time Seen by Provider: 02/12/23 09:54 Source: patient and old records reviewed Mode of arrival: ambulatory Limitations: no limitations History of Present Illness HPI Narrative: This is a 72-year-old male walked into the emergency department for evaluation of possible UTI, patient also been having difficulty ambulating for the past few days. Patient declined any fever no chills, patient feels pain in the bladder when he urinate otherwise he declined dysuria or frequent urination or fever or chills, no abdominal pain, no flank pain. Patient declined any blood in the urine, normal bowel movement. Patient has been taking ciprofloxacin that has been left over from previous UTI. Checking the old record of the patient he grew E coli in the urine culture that is sensitive to almost all antibiotics except quinolones. Related Data Previous Rx's Medication Instructions Recorded acetaminophen 500 mg tablet 1,000 mg (2 x 500 mg) PO Q6H PRN 06/16/22 (Tylenol Extra Strength) fever or pain #20 tabs ciprofloxacin HCl 500 mg tablet 500 mg PO Q12H 10 days #20 tabs 06/16/22 (Cipro) ibuprofen 400 mg tablet 400 mg PO TID PRN fever or pain 06/16/22 #30 tabs tamsulosin 0.4 mg capsule (Flomax) 0.4 mg PO DAILY #30 caps 06/16/22 cephalexin 500 mg capsule 500 mg PO Q6H 7 days #28 caps 06/21/22 ciprofloxacin HCl 250 mg tablet 250 mg PO Q12H 5 days #10 tabs 02/07/23 naproxen 500 mg tablet 500 mg PO BID PRN pain 7 days #14 02/07/23 tabs nitrofurantoin 100 mg PO BID #20 caps 02/12/23 monohydrate/macrocrystals 100 mg capsule (Macrobid) Allergies Allergy/AdvReac Type Severity Reaction Status Date / Time No Known Allergies Allergy Verified 06/16/22 14:35 Review of Systems Review of Systems: All other systems are reviewed and are negative Constitutional: Reports as per HPI and Reports no additional constitutional complaints Eyes: Reports as per HPI and Reports no additional eye complaints Reports system reviewed and no additional complaints, except as documented Cardiovascular: Reports as per HPI and Reports no additional cardiovascular complaints Respiratory: Reports as per HPI and Reports no additional respiratory complaints Gastrointestinal: Reports as per HPI and Reports no additional gastrointestinal complaints Genitourinary: Reports no additional female genitourinary complaints Musculoskeletal: Reports no additional musculoskeletal complaints Skin/Breast: Reports system reviewed and no additional complaints, except as docu Psychiatric: Reports no additional psychiatric complaints Endocrine: Reports no additional endocrine complaints Hematologic/Lymphatic: Reports no additional hematologic/lymphatic complaints Allergic/Immunologic: Reports no additional allergic/immunologic complaints Reports system reviewed and no additional complaints, except as documented and Reports Abnormal speech present [facility] Past Medical History Medical History HTN (hypertension) Social History Social History Advance Directives: Yes Advance Directives Information Provided: No Advance Directives on File: No Physical Exam Vital Signs: Vital Signs: Last Vital Signs Temp 97.7 F 02/12/23 11:47 Pulse 61 02/12/23 11:47 Resp 16 02/12/23 11:47 BP 131/51 L 02/12/23 11:47 Pulse Ox 95 02/12/23 11:47 O2 Del Method Room Air 02/12/23 11:47 BMI result Body Mass Index 26.8 Vital signs have been reviewed and appear to be correct. Blood pressure elevated. Heart rate normal. Respiratory rate normal. Temperature normal. Oxygen saturation normal. Appearance: Alert. Oriented X3. No acute distress. Head: Normal external exam. Normocephalic. Atraumatic. No [place] signs noted. No raccoon eyes noted Eyes: PERRLA. EOMI. Conjunctiva and sclera normal. Eyelids normal. ENT: TM's Normal. Pharynx normal. Uvula midline. Moist mucous membranes. No trismus noted. No drooling noted. No muffled voice noted. Neck: Normal inspection. Neck supple. FROM. No adenopathy. Thyroid Normal. No meningeal signs. No neck mass noted. CVS: Normal heart rate and rhythm. Heart sound normal. No murmurs noted. Pulses normal throughout. Respiratory: No respiratory distress. Painless inspiration. Breath sounds normal. No wheezes/rales/rhonchi noted. Chest nontender. No accessory muscle usage noted or decreased air movement noted. Abdomen: Soft and nontender. Bowel sounds normal in all 4 quadrants. No distention noted. No organomegaly noted. No visible injury noted. Back: No CVA tenderness. Full range of motion noted. Skin: Skin warm and dry. Normal skin color. Normal skin turgor. No rashes/lesions/lacerations noted. Extremities: No lower extremity edema. Extremities exhibit normal range of motion. Extremities nontender. Neuro: Oriented X 3. Cranial nerve exam: II-XII are grossly intact No motor deficit. No sensory deficit. Reflexes normal. Course Course Course Narrative: A 72-year-old male came in for UTI, after reviewing the old culture patient grew E coli which is sensitive to Macrobid. Will start the patient on Macrobid and encouraged to drink plenty of fluids patient and follow up with urology information for Dr. Esquivel was provided to the patient Medical Decision Making Differential Diagnosis Differential Diagnoses: The differential diagnosis associated with the presentation includes (UTI, pyelonephritis.) Lab Data MDM Lab Attestation statement: I reviewed the patient's lab results. Labs: Lab Results 02/12/23 Range/Units 10:34 Urine Color Dark Yellow Urine Appearance Cloudy Urine pH 6.0 (5.0-9.0) Ur Specific [place] >= 1.030 H (1.005-1.025) Urine Protein Trace (Neg-Trace) mg/dL Urine Glucose (UA) Negative (Negative) mg/dL Urine Ketones Negative (Negative) mg/dL Urine Blood Negative (Negative) Urine Nitrite Positive H (Negative) Ur Leukocyte Esterase Small (1+) H (Negative) Urine RBC 0-2 (0-2) /HPF Urine WBC 21-50 H (0-5) /HPF Ur Squamous Epith Cells 3-5 (0-2) /HPF Urine Bacteria 4+ (None Seen) Hyaline Casts 0-2 (0-2) /LPF Discharge Plan Discharge Clinical Impression: Urinary tract infection Patient Disposition: Home, Self-Care Instructions: Urinary Tract Infection in Men (ED) Prescriptions: New nitrofurantoin monohyd/m-cryst [Macrobid] 100 mg capsule 100 mg PO BID Qty: 20 0RF Rx Instructions: must administer with a meal/food No Action ciprofloxacin HCl [Cipro] 500 mg tablet 500 mg PO Q12H 10 Days Qty: 20 0RF acetaminophen [Tylenol Extra Strength] 500 mg tablet 1,000 mg PO Q6H PRN (Reason: fever or pain) Qty: 20 0RF tamsulosin [Flomax] 0.4 mg capsule 0.4 mg PO DAILY Qty: 30 0RF ibuprofen 400 mg tablet 400 mg PO TID PRN (Reason: fever or pain) Qty: 30 0RF cephalexin 500 mg capsule 500 mg PO Q6H 7 Days Qty: 28 0RF ciprofloxacin HCl 250 mg tablet 250 mg PO Q12H 5 Days Qty: 10 0RF naproxen 500 mg tablet 500 mg PO BID PRN (Reason: pain) 7 Days Qty: 14 0RF Referrals: Rolando Esquivel MD [Physician] - Jerrell Samaniego FNP-JOSE [Primary Care Provider] -
[2023-02-12 10:50] LABS: Appearance Urine Cloudy; Color Urine Dark Yellow; Glucose Urine UA Negative (Negative); Leukocyte Esterase Urine Small (1+) (Negative); Nitrite Urine Positive (Negative); Specific Gravity - Urine >= 1.030 (1.005-1.025); UMIC TRIGGER UACC YES; Urine Blood Negative (Negative); Urine Ketones Negative (Negative); Urine Protein Trace mg/dL (Neg-Trace)
[2023-02-12 10:56] LABS: Bacteria Urine 4+ (None Seen); Hyaline Casts Urine 0-2 /LPF (0-2); RBC Urine 0-2 /HPF (0-2); UACC Culture Trigger YES; WBC Urine 21-50 /HPF (0-5)
--- NOTE | 2023-02-12 10:57 | PC.NURSE ---
pt ambulated with steady gait to room from waiting room. urine sample obtained.
[2023-02-12 11:47] VITALS: BP 131/51; PULSE 61; RESP 16; TEMP 36.5; O2SAT 95
[2023-02-12 13:03] VITALS: BP 140/71; PULSE 61; RESP 16; TEMP 36.5; O2SAT 96
[2023-02-12] MEDS: Nitrofurantoin Monohyd/M-Cryst 100 MG CAPSULE PO (13:03)
== END 2023-02-12 13:39 | disposition home or self-care (01) ==
PROVIDERS: Emergency Provider Emergency Medicine; PCP Nurse Practitioner Family
DX: N39.0 Urinary tract infection, site not specified (principal); B96.20 Unspecified Escherichia coli [E. coli] as the cause of diseases classified elsewhere; I10 Essential (primary) hypertension
CPT/HCPCS: 81001; 87086; 87088; 87186; 99283; 99284

== ENCOUNTER 2023-03-05 10:36 | Outpatient (AMB) | payer OTHER, SELFPAY ==
--- NOTE | 2023-03-05 10:47 | AM.OFFWIN_ITS ---
Intake Vital Signs 03/05/23 10:49 BP 120/70 Blood Pressure Location Lt brachial Position Sitting Pulse 71 Pulse Source Pulse Oximeter Temp 97.6 F Pulse Oximetry (%) 98 Oxygen Delivery Method Room Air Intake Visit Reasons: EP, UTI? Intake Note: Pt is here today c/o UTI sx's Patient Tobacco Use Status: Former Tobacco user Allergies No Known Allergies Allergy (Verified 03/05/23 10:55) HPI HPI Comments History of Present Illness Details 1052 72-year-old male presents with urinary f requency, urgency, dysuria, foul- smelling urine for the past few days worsening. Patient has history of UTIs, reports this feels like his typical UTI. Patient denies fevers, chills, flank pain, nausea, vomiting, diarrhea, headache, vision changes, dizziness, chest pain shortness of breath Physical examination benign. Concerns for UTI versus cystitis. Unlikely pyelo, obstructing uropathy. Unlikely sepsis. Based off previous microbiology patient usually grows E coli susceptible to ampicillin, ceftriaxone, gentamicin, nitrofurantoin, Bactrim. Resistant to Levaquin. Plan to discharge patient home on Ceftin. Educated patient on diagnosis and treatment plan, answered all question, patient verbalizes understanding. At this time patient will be discharged home, advised to return with new or worsening symptoms. Educated on worrisome signs and symptoms and when to return. At this time I feel comfortable discharge home. [facility] Medical History HTN (hypertension) Social History Patient Tobacco Use Status: Former Tobacco user Review of Systems Const Details: Constitutional : No Weight loss, No Fever, No Chills, No Fatigue, No Malaise ENT/Mouth : No sore throat, No Rhinorrhea Eyes: No Eye Pain, No Swelling, No Redness Cardiovascular : No Chest Pain, No SOB, No Dyspnea on Exertion, No Orthopnea, No Edema, No Palpitations Respiratory : No Cough, No Sputum, No Wheezing Gastrointestinal : No Nausea, No Vomiting, No Diarrhea, No Constipation, No abdominal Pain, No Hematochezia, No Melena Genitourinary : + Dysuria, + Urinary Frequency, No Hematuria, Musculoskeletal : No joint pain, No Myalgias, No Joint Swelling Skin : No Skin Lesions, No rash Neuro : No Weakness, No Numbness, No Dizziness, No Headache Psych : No Anxiety/Panic, No Depression All other systems reviewed and are negative All systems reviewed & are unremarkable except as noted in HPI and below Physical Exam Vital Signs: Last Vital Signs Temp 97.6 F 03/05/23 10:49 Pulse 71 03/05/23 10:49 BP 120/70 03/05/23 10:49 Pulse Ox 98 03/05/23 10:49 Oxygen Delivery Method Room Air 03/05/23 10:49 vss Appearance: Alert.? Oriented X3.? No acute distress.? Head: Normocephalic, atraumatic, no step-offs or deformities Eyes: Pupils equal, round and reactive to light.? CVS: Normal heart rate and rhythm.? Pulses normal.? Respiratory: No respiratory distress.? Breath sounds normal.? Abdomen: Soft and nontender.? Skin: Skin warm and dry.? Normal skin color.? Normal skin turgor.? Extremities: No lower extremity edema.? No calf ttp. 5/5 strength to bilateral upper and lower extremities Back: No CVA tenderness bilaterally Neuro: Oriented X 3.? No motor deficit.? No sensory deficit. CN 2-12 intact Results AMB Urinalysis, Automated UA Leukoctes 0 Alfie/uL Last Edit by Cecile Kumar CMA on 03/05/23 10:57 UA Nitrite Positive Last Edit by Cecile Kumar CMA on 03/05/23 10:57 UA Urobilinogen 0.2 mg/dL Last Edit by Cecile Kumar CMA on 03/05/23 10:57 UA Protein 0 mg/dL Last Edit by Cecile Kumar CMA on 03/05/23 10:57 UA pH 6.0 Last Edit by Cecile Kumar CMA on 03/05/23 10:57 UA Blood 0 Andrzej/uL Last Edit by Cecile Kumar CMA on 03/05/23 10:57 UA Specific [place] 1.025 Last Edit by Cecile Kumar CMA on 03/05/23 10:57 UA Ketone Negative Last Edit by Cecile Kumar CMA on 03/05/23 10:57 UA Bilirubin 0 mg/dL Last Edit by Cecile Kumar CMA on 03/05/23 10:57 UA Glucose 0 mg/dL Last Edit by Cecile Kumar CMA on 03/05/23 10:57 Results Reviewed Results Reviewed: Laboratory Last Values Urine pH (Auto) 6.0 03/05/23 10:56 Specific [place] (Auto) 1.025 03/05/23 10:56 Urine Protein (Auto) 0 mg/dL 03/05/23 10:56 Glucose (UA)(Auto) 0 mg/dL 03/05/23 10:56 Urine Ketones (Auto) Negative 03/05/23 10:56 Urine Blood (Auto) 0 Andrzej/uL 03/05/23 10:56 Urine Nitrite (Auto) Positive 03/05/23 10:56 Urine Bilirubin (Auto) 0 mg/dL 03/05/23 10:56 Urine Urobilinogen (Auto) 0.2 mg/dL 03/05/23 10:56 Leukocyte Esterase (Auto) 0 Alfie/uL 03/05/23 10:56 Assessment & Plan Assessment & Plan (1) Acute UTI: Code(s): N39.0 - Urinary tract infection, site not specified Plan Take your medications as prescribed. If you were prescribed antibiotics today, it is important that you take your medication to their entirety, do not skip any doses, do not finish them early. Follow-up with your primary care provider this week. Return to the emergency department with new or worsening symptoms. Such as fevers, chills, chest pain, shortness of breath, nausea, vomiting, dizziness, headache, vision changes, lethargy In case of emergency call 911 Orders: Orders AMB Urinalysis Automated Today Z13.9 - Encounter for screening, unspecified Medications: Refilled cephalexin 500 mg PO Q6H 28 caps 0RF 7 days Coding Level of Care Code Est Pt Level 3 (31764) Diagnoses Acute UTI N39.0
[2023-03-05 10:49] VITALS: BP 120/70; PULSE 71; TEMP 36.4; O2SAT 98
== END 2023-03-05 14:57 | disposition home or self-care (01) ==
PROVIDERS: PCP Nurse Practitioner Family; Visit Provider Physician Assistant
DX: N39.0 Urinary tract infection, site not specified (principal); R30.0 Dysuria
CPT/HCPCS: 81003; 99051; 99213

== ENCOUNTER 2023-03-19 09:22 | Outpatient (AMB) | payer OTHER, SELFPAY ==
--- NOTE | 2023-03-19 11:54 | AM.OFFWIN_ITS ---
Intake Vital Signs 03/19/23 11:55 Height 5 ft 9 in Weight 177 lb 8 oz BMI 26.2 BP 130/70 Blood Pressure Location Lt brachial Position Sitting Pulse 75 Pulse Source Pulse Oximeter Temp 97.2 F Temp Source Temporal Artery Scan Pulse Oximetry (%) 96 Oxygen Delivery Method Room Air Intake Visit Reasons: EP UTI Intake Note: pt is here for c/o possible uti Patient Tobacco Use Status: Former Tobacco user Allergies No Known Allergies Allergy (Verified 03/26/23 11:55) Do you need a note to return to daycare/school/sports/work: Yes HPI EP UTI HPI Details Patient is a 9-year-old male with a history of recurrent UTIs, CHF, who was recently treated for urinary tract infection and worries that it might be returning due to mildly painful urination, and recurrent right scrotal discomfort. He states that he has had scrotal enlargement the last few years. No abdominal pain or back pain, no nausea vomiting or diarrhea, no weakness or dizziness, myalgias or malaise, anorexia, gross hematuria, or other significant associated symptoms. [facility] Medical History HTN (hypertension) Social History Patient Tobacco Use Status: Former Tobacco user Review of Systems Const All systems reviewed & are unremarkable except as noted in HPI and below Physical Exam Vital Signs: Last Vital Signs Temp 97.2 F 03/19/23 11:55 Pulse 75 03/19/23 11:55 BP 130/70 03/19/23 11:55 Pulse Ox 96 03/19/23 11:55 Oxygen Delivery Method Room Air 03/19/23 11:55 BMI result Body Mass Index 26.2 Const General: cooperative, healthy appearing, comfortable, no acute distress, alert, awake, Physically active and well groomed; No anxious, diaphoretic, ill appearing or intoxicated appearing Nutritional Appearance: average body habitus Orientation/consciousness: oriented to person Limitations: no limitations Resp Effort & Inspection: normal respiratory effort, able to speak in complete sentences, no audible wheezes, no cough, no grunting, not labored, no nasal flaring, no retractions and symmetric chest movement Auscultation: clear to auscultation bilaterally, no crackles, no rales, no rhonchi, no wheezes, lung sounds not diminished and No rub present Cardio Rate: regular rate GI Inspection: Yes normal to inspection, No Abdominal wall edema, No distended, No incision and No Abdominal panniculus present Palpation (GI): Soft to palpation, not firm, nontender, no guarding, not rigid and No hepatosplenomegaly present General: Yes no CVA tenderness Male General Exam: Yes hernia (Enlarged right scrotum), No inguinal lymphadenopathy and Yes tenderness (Right testicle) Penis: normal penis Back/Spine/Pelvis Back: no CVA tenderness Skin Other: Good color, warm and dry Neuro General: oriented to person Psych Appearance: grossly normal Mental Status: mental status grossly normal Speech and movement: Normal speech and movement present Affect: normal affect Attitude: cooperative Thought process: Normal thought process present Insight: Good insight present (Psych) Judgement: Good judgement present (Psych) Results AMB Urinalysis, Automated UA Leukoctes 0 Alfie/uL Last Edit by Neal Garcia CMA on 03/19/23 12:36 UA Nitrite Negative Last Edit by Neal Garcia CMA on 03/19/23 12:36 UA Urobilinogen 0.2 mg/dL Last Edit by Neal Garcia CMA on 03/19/23 12 :36 UA Protein 0 mg/dL Last Edit by Neal Garcia CMA on 03/19/23 12:36 UA pH 5.5 Last Edit by Neal Garcia CMA on 03/19/23 12:36 UA Blood 0 Andrzej/uL Last Edit by Neal Garcia CMA on 03/19/23 12:36 UA Specific [place] 1.015 Last Edit by Neal Garcia CMA on 03/19/23 12:36 UA Ketone Negative Last Edit by Neal Garcia CMA on 03/19/23 12:36 UA Bilirubin 0 mg/dL Last Edit by Neal Garcia CMA on 03/19/23 12:36 UA Glucose 0 mg/dL Last Edit by Neal Garcia CMA on 03/19/23 12:36 Results Reviewed Results Reviewed: Laboratory Last Values Urine pH (Auto) 5.5 03/19/23 12:35 Specific [place] (Auto) 1.015 03/19/23 12:35 Urine Protein (Auto) 0 mg/dL 03/19/23 12:35 Glucose (UA)(Auto) 0 mg/dL 03/19/23 12:35 Urine Ketones (Auto) Negative 03/19/23 12:35 Urine Blood (Auto) 0 Andrzej/uL 03/19/23 12:35 Urine Nitrite (Auto) Negative 03/19/23 12:35 Urine Bilirubin (Auto) 0 mg/dL 03/19/23 12:35 Urine Urobilinogen (Auto) 0.2 mg/dL 03/19/23 12:35 Leukocyte Esterase (Auto) 0 Alfie/uL 03/19/23 12:35 Assessment & Plan Assessment & Plan (1) UTI (urinary tract infection): Code(s): N39.0 - Urinary tract infection, site not specified Plan 72-year-old Patient has what sounds like possible UTI versus possible chronic epididymitis with scrotal enlargement. He has a history of infections only be partially clearing with antibiotics. He presents with right scrotal enlarge and tenderness which he states has been an issue for him for few years now, with mild intermittent urinary frequency and painful urination. Possible that he has a scrotal abscess that is flared up, verses aggravated inguinal hernia or other scrotal mass. He currently denies fever or chills, or systemic symptoms of infection. He recently completed antibiotic course for likely UTI versus cystitis he has denied flank back pain, nausea weakness or dizziness fever chills or difficulty urinating systemic symptoms. Unlikely septic. He denies recent sexual intercourse, and STD testing declined by patient. Patient appears stable, and safe for outpatient follow-up currently. Patient had recent urine culture grew ecoli susceptible to multiple antibiotics and only resistant to Levaquin, and patient states that his history he has cleared his symptoms with Macrobid, so I will restart that today and pending microscopy results. He will monitor his symptoms closely and will go to the emergency department with worrisome symptoms. We discussed that he should follow-up with PCP or urologist, which he plans on doing. Orders: Orders UA CC w/rflx Micro + Cult 03/19/23 R30.0 - Dysuria AMB Urinalysis Automated 03/19/23 Z13.9 - Encounter for screening, unspecified Medications: New nitrofurantoin monohyd/m-cryst 100 mg (Macrobid) must administer with a meal/food 100 mg PO Q12H 14 caps 0RF 7 days N39.0 - Urinary tract infection, site not specified Coding Level of Care Code Est Pt Level 4 (89444) Diagnoses UTI (urinary tract infection) N39.0
[2023-03-19 11:55] VITALS: BP 130/70; PULSE 75; TEMP 36.2; O2SAT 96; BMI 26.2
== END 2023-03-19 13:22 | disposition home or self-care (01) ==
PROVIDERS: PCP Nurse Practitioner Family; Visit Provider Physician Assistant Medical
DX: N39.0 Urinary tract infection, site not specified (principal)
CPT/HCPCS: 81003; 99051; 99214

== ENCOUNTER 2023-03-19 13:14 | Outpatient (REF) | payer OTHER, SELFPAY ==
[2023-03-19 15:21] LABS: Appearance Urine Clear; Color Urine Yellow; Glucose Urine UA Negative (Negative); Leukocyte Esterase Urine Trace (Negative); Nitrite Urine Negative (Negative); PH 5.5 (5.0-9.0); UMIC TRIGGER UACC YES; Urine Blood Negative (Negative); Urine Ketones Negative (Negative); Urine Protein Negative (Neg-Trace)
[2023-03-19 15:29] LABS: Bacteria Urine None Seen (None Seen); Hyaline Casts Urine 0-2 /LPF (0-2); RBC Urine 0-2 /HPF (0-2); WBC Urine 0-5 /HPF (0-5)
== END 2023-03-19 13:15 | disposition home or self-care (01) ==
LOC: HO.LAB 13:14
PROVIDERS: Visit Provider Physician Assistant Medical
DX: R30.0 Dysuria (principal)
CPT/HCPCS: 81001

== ENCOUNTER 2023-03-26 10:11 | Outpatient (AMB) | payer OTHER, SELFPAY ==
--- NOTE | 2023-03-26 11:51 | AM.OFFWIN_ITS ---
Intake Vital Signs 03/26/23 11:52 Height 5 ft 9 in Weight 178 lb BMI 26.3 BP 132/60 Blood Pressure Location Rt brachial Position Sitting Pulse 55 Pulse Source Pulse Oximeter Temp 97.5 F Temp Source Oral Pulse Oximetry (%) 97 Oxygen Delivery Method Room Air Intake Visit Reasons: EP, burning with urination Intake Note: Pt is here today c/o pain Rt side of groin Patient Tobacco Use Status: Former Tobacco user Allergies No Known Allergies Allergy (Verified 03/26/23 11:55) HPI HPI Comments History of Present Illness Details This is a 72-year-old male with a past medical history of CHF and hypertension presenting for evaluation of right inguinal pain that he has had for the past, at least, 6 months. Patient reports intermittent intense sharp pain that will occur most often in the morning when he is getting out of bed. The pain will last up to three minutes. Patient states he this last occurred yesterday morning. Patient denies having any nausea, vomiting, dysuria or diarrhea. Patient does report urinary frequency and is currently on antibiotic therapy for an acute urinary tract infection. Patient reports having an appointment with [facility] on April 14 for further evaluation of his right groin pain and urinary frequency. Patient denies having any test icular pain at this time. [facility] Medical History HTN (hypertension) Social History Patient Tobacco Use Status: Former Tobacco user Review of Systems Const All systems reviewed & are unremarkable except as noted in HPI and below Denies chills, Denies fatigue and Denies fever(s) GI Reports abdominal pain (right inguinal pain) and Denies change in bowel habits Reports scrotal swelling (right), Denies testicular pain and Reports urinary frequency Endo Denies fatigue Physical Exam Vital Signs: Last Vital Signs Temp 97.5 F 03/26/23 11:52 Pulse 55 03/26/23 11:52 BP 132/60 03/26/23 11:52 Pulse Ox 97 03/26/23 11:52 Oxygen Delivery Method Room Air 03/26/23 11:52 BMI result Body Mass Index 26.3 Const General: cooperative, comfortable and no acute distress Nutritional Appearance: average body habitus Orientation/consciousness: patient oriented x3 Limitations: no limitations GI Inspection: Yes normal to inspection Palpation (GI): Soft to palpation, nontender and no guarding Auscultation: normal bowel sounds Male General Exam: No normal external exam (gross enlargement right scrotum) and No lacerations Penis: normal penis and uncircumcised Meatus: meatus normal Scrotum: scrotum abnormal, inguinal hernia (right) on the right and scrotal swelling on the right Testes: no testicular tenderness Skin General skin exam: no rashes or lesions noted Neuro General: patient oriented x3 Psych Appearance: grossly normal Mental Status: mental status grossly normal Insight: Good insight present (Psych) Judgement: Good judgement present (Psych) Results AMB Urinalysis, Automated UA Leukoctes 0 Alfie/uL Last Edit by Cecile Kumar CMA on 03/26/23 11:57 UA Nitrite Negative Last Edit by Cecile Kumar CMA on 03/26/23 11:57 UA Urobilinogen 0.2 mg/dL Last Edit by Cecile Kumar CMA on 03/26/23 11:57 UA Protein 0 mg/dL Last Edit by Cecile Kumar CMA on 03/26/23 11:57 UA pH 6.0 Last Edit by Cecile Kumar CMA on 03/26/23 11:57 UA Blood 0 Andrzej/uL Last Edit by Cecile Kumar CMA on 03/26/23 11:57 UA Specific [place] 1.010 Last Edit by Cecile Kumar CMA on 03/26/23 11:57 UA Ketone Negative Last Edit by Cecile Kumar CMA on 03/26/23 11:57 UA Bilirubin 0 mg/dL Last Edit by Cecile Kumar CMA on 03/26/23 11:57 UA Glucose 0 mg/dL Last Edit by Cecile Kumar CMA on 03/26/23 11:57 Results Reviewed Results Reviewed: Laboratory Last Values Urine pH (Auto) 6.0 03/26/23 11:52 Specific [place] (Auto) 1.010 03/26/23 11:52 Urine Protein (Auto) 0 mg/dL 03/26/23 11:52 Glucose (UA)(Auto) 0 mg/dL 03/26/23 11:52 Urine Ketones (Auto) Negative 03/26/23 11:52 Urine Blood (Auto) 0 Andrzej/uL 03/26/23 11:52 Urine Nitrite (Auto) Negative 03/26/23 11:52 Urine Bilirubin (Auto) 0 mg/dL 03/26/23 11:52 Urine Urobilinogen (Auto) 0.2 mg/dL 03/26/23 11:52 Leukocyte Esterase (Auto) 0 Alfie/uL 03/26/23 11:52 UA reviewed with patient; culture will be ordered a last one was reportedly not submitted. Assessment & Plan Assessment & Plan (1) Urinary frequency: Code(s): R35.0 - Frequency of micturition Plan: Urine culture pending. (2) Inguinal hernia of right side without obstruction or gangrene: Comment: Scrotal ultrasound will be ordered; patient will follow-up with [facility] on 04/14. Code(s): K40.90 - Unilateral inguinal hernia, without obstruction or gangrene, not specified as recurrent Orders: Orders AMB Urinalysis Automated Today Z13.9 - Encounter for screening, unspecified US scrotum Today K40.90 - Unilateral inguinal hernia, without obstruction or gangrene, not specified as recurrent Urine Culture Today R35.0 - Frequency of micturition Coding Level of Care Code Est Pt Level 4 (63895) Diagnoses Urinary frequency R35.0 Inguinal hernia of right side without obstruction or gangrene K40.90 Time Spent (min) 30
[2023-03-26 11:52] VITALS: BP 132/60; PULSE 55; TEMP 36.4; O2SAT 97; BMI 26.3
== END 2023-03-26 12:36 | disposition home or self-care (01) ==
PROVIDERS: PCP Nurse Practitioner Family; Visit Provider Physician Assistant
DX: R35.0 Frequency of micturition (principal); K40.90 Unilateral inguinal hernia, without obstruction or gangrene, not specified as recurrent; Z13.9 Encounter for screening, unspecified
CPT/HCPCS: 81003; 99051; 99214

== ENCOUNTER 2023-03-26 12:22 | Outpatient (REF) | payer OTHER, SELFPAY | END 2023-03-26 12:23 | disposition home or self-care (01) | LOC: HO.LAB 12:22 | PROVIDERS: Visit Provider Physician Assistant | DX: R35.0 Frequency of micturition (principal) | CPT/HCPCS: 87086 ==

== ENCOUNTER 2023-03-30 09:40 | Emergency (ER) | payer OTHER, SELFPAY ==
--- NOTE | ~2023-03-30 | US_ITS ---
EXAMINATION: US SCROTUM CLINICAL INFORMATION: Testicular pain with enlarged right scrotal sac. COMPARISON: CT abdomen pelvis earlier today TECHNIQUE: A sonogram of the scrotum was performed assessing [place]-scale appearance and color Doppler flow. Spectral Doppler analysis of the arterial and venous flow were performed in the testes bilaterally. FINDINGS: RIGHT: Right testicle measures 4.4 x 2.5 x 3.5 cm, volume 19.8 mL. No focal testicular parenchymal lesions are visualized. Spectral Doppler analysis of the arterial and venous flow is normal in the right testis. Right epididymal head is normal in size. There is a large right hydrocele. No varicocele is seen. Right epididymal Doppler flow is normal. Multiple masses are seen within the right scrotum with one in the inguinal canal measuring 5.3 x 3.4 x 3.7 cm with some other hyperechoic mass is seen superior to the right testicle ranging in size from 2.4 cm to 4.8 cm. These are predominantly hyperechoic and may represent lipomas. On the CAT scan from 06/26/2022 which included the inguinal canal (today's CAT scan did not), an inguinal hernia containing only fat can be seen. LEFT: Left testicle measures 4.0 x 1.7 x 2.4 cm, volume 8.3 mL. No focal testicular parenchymal lesions are visualized. Echotexture is heterogeneous. Spectral Doppler analysis of the arterial and venous flow is normal in the left testis. Left epididymal head is normal in size. No left hydrocele or varicocele is seen. Left epididymal Doppler flow is normal. US/US scrotum doppler IMPRESSION: 1. Large right hydrocele. 2. Hyperechoic masses in the right scrotum, one in the inguinal canal and the others superior to the right testicle. I suspect these are related to a hernia as an inguinal hernia containing only fat was seen in the right inguinal canal on an old CT exam. Follow-up can be performed as an outpatient if pain persists. The ideal exam for evaluation of these inguinal canal masses would be an MRI 3. The left testicle is smaller than the right and heterogeneous in echotexture. This may be related to prior infection or trauma. 4. No evidence of testicular torsion. This result was discussed with Dr. Myles at 3:00 PM on the day of the exam and it was ascertained that the content of the report was understood at the time of direct communication.
--- NOTE | ~2023-03-30 | CT_ITS ---
EXAMINATION: CT ABDOMEN AND PELVIS WITH CONTRAST CLINICAL INFORMATION: Lower abdominal pain COMPARISON: 06/26/2022 TECHNIQUE: Multidetector volumetric images were obtained from the superior aspect of the liver through the pubic symphysis following administration 85 mL of Omnipaque 350 intravenous contrast. Sagittal and coronal reformatted images were obtained on the technologist's workstation. Oral contrast: No This CT examination was performed using dose optimization techniques as appropriate, variously including the following: *Automated exposure control *Adjustment of mA and/or kV according to patient size (this includes techniques or standardized protocols for targeted exams where dose is matched to indication/reason for exam; i.e. extremities or head) *Use of iterative reconstruction technique DLP: 441 mGy-cm FINDINGS: LUNG BASES: The visualized lung bases are unremarkable. LIVER, GALLBLADDER, AND BILIARY TREE: Again note is made of multiple small cysts throughout the right and left lobe liver. Findings are stable. No suspicious new solid masses. There is no intrahepatic biliary dilatation. The gallbladder is unremarkable with no evidence of radiopaque gallstones, gallbladder wall thickening, or obvious pericholecystic inflammatory changes. PANCREAS: Unremarkable. SPLEEN: Unremarkable. ADRENAL GLANDS: Right adrenal normal. Thickening of the lateral limb of the left adrenal is unchanged. KIDNEYS AND URETERS: No evidence of hydronephrosis. A few tiny punctate nephroliths in the left kidney and possibly the right kidney are stable but these are nonobstructive. A few tiny cysts in both kidneys and other too small to characterize lesions are observed in these are stable. No further workup needed. No suspicious solid lesions or perinephric collections. BLADDER: Unremarkable. GASTROINTESTINAL TRACT: Large stool burden distends the rectum. There is moderate sigmoid diverticular disease with some inflammatory change in the sigmoid consistent with superimposed diverticulitis. No bowel obstruction or right lower quadrant inflammation. Appendix normal. ABDOMINAL WALL: Fat-containing right inguinal hernia unchanged. LYMPH NODES: Normal. VASCULAR: Minor atherosclerotic change in the aorta and iliac bifurcation but no aneurysm. PELVIC VISCERA: Prominent prostate. No change. OSSEOUS STRUCTURES: Mild degenerative change in the lumbar spine. CT/CT abdomen pelvis w IV con IMPRESSION: Mild sigmoid diverticulitis. No drainable collection.
[2023-03-30 09:54] VITALS: BP 154/69; PULSE 69; RESP 16; TEMP 36.3; O2SAT 97; BMI 25.7
--- NOTE | 2023-03-30 10:03 | PC.NURSE ---
Patient reporting right sided groin/abdominal pain. Upon inspection patient with large amount of plastic tucked around scrotum. Pieces of paper inside plastic wrap. Patient states he puts the plastic wrap on for comfort. Scrotum swollen, patient reports area on right side of groin that he is able to push back into his intestine Patient with redness to abdomen, patient reports area is always dry and itchy.
--- NOTE | 2023-03-30 10:33 | ED.ABDPAIN ---
HPI - Abdominal Pain General Chief Complaint: Abdominal Pain Stated Complaint: Abdominal pain Time Seen by Provider: 03/30/23 09:55 History of Present Illness HPI narrative: Patient is a 72-year-old male history being on Eliquis. History of hypertension. Was seen previously at the walk-in clinic for an inguinal hernia on the right side. Patient claims the symptoms been ongoing for years. Still have a mask. Was scheduled for an ultrasound came to the emergency department instead. No fever no chills. No nausea no vomiting. Pain in the groin area with certain movement. In ongoing for years. Patient denies any chest pain no fever no chills. No systemic complaints. He is not sexually active no penile discharge. Related Data Home Medications Medication Instructions Recorded Confirmed apixaban 5 mg tablet (Eliquis) 5 mg PO BID 03/19/23 atorvastatin 40 mg tablet 40 mg PO DAILY 03/19/23 hydralazine 25 mg tablet mg PO 03/19/23 lisinopril 40 mg tablet 40 mg PO DAILY 03/19/23 Previous Rx's Medication Instructions Recorded nitrofurantoin 100 mg PO Q12H 7 days #14 caps 03/19/23 monohydrate/macrocrystals 100 mg capsule (Macrobid) amoxicillin 875 mg-potassium 1 tab PO BID #20 tabs 03/30/23 clavulanate 125 mg tablet Allergies Allergy/AdvReac Type Severity Reaction Status Date / Time No Known Allergies Allergy Verified 03/26/23 11:55 Review of Systems Review of Systems Positive pain in the right groin area PMFSH Past Medical History Attestation statement: The following information was validated with the patient. Medical History HTN (hypertension) Social History Social History Alcohol intake: former Patient Tobacco Use Status: Former Tobacco user Smoked in Last 30 Days: Yes Use of substances other than those prescribed or required for medical reasons: No Advance Directives: No Advance Directives Information Provided: No Physical Exam ED Vital Signs: Vital Signs - 24 hr 03/30/23 09:54 03/30/23 13:37 Temperature 97.3 F 98.1 F Pulse Rate 69 60 Respiratory Rate 16 16 Blood Pressure 154/69 H 150/76 H Pulse Oximetry 97 98 Oxygen Delivery Method Room Air Room Air BMI result Body Mass Index 25.7 Appearance: Alert. Oriented X3. No acute distress. Eyes: Pupils equal, round and reactive to light. ENT: Pharynx normal. Neck: Normal inspection. Neck supple. No lymph nodes noted. No crepitus CVS: Normal heart rate and rhythm. Pulses normal. Normal S1 and S2 Respiratory: No respiratory distress. Breath sounds normal. No Wheezing. No rales Abdomen: Soft and nontender. No rigidity. No distention. good BS x4. A mass was noted in the right groin area extending to the scrotum. There is a mass that is palpable in the right scrotum. Soft. Nontender. Consistent with bowel. Attempt to reduce with moderate success Skin: Skin warm and dry. Normal skin color. Normal skin turgor. Extremities: No lower extremity edema. Neurovascular intact to all extremities. No Lacerations. No Rash Neuro: Oriented X 3. No motor deficit. No sensory deficit. Moving all extermities. No slurred speech Medical Decision Making Medical Decision Making [facility] Narrative: Patient presents today with having a mass in the right scrotum. It has been ongoing for the last few years. All worse over the last few months. CT scan was initially done. It showed no evidence of bowel obstruction. No abscess no perforation. Ultrasound showed question lipoma versus hernia in the scrotal sac. Finding was discussed with surgery Dr. Abbasi. He personally reviewed the ultrasound and CT scan. [place] patient likely has a fat containing hernia. Will have patient follow-up on an outpatient basis with him. Patient also showed a mild diverticulitis on CT scan. Will start patient on Augmentin. Follow-up outpatient with surgery as well. Currently in stable condition pain is controlled. In no acute distress symptoms ongoing lactate is normal there is no evidence for incarceration or strangulation. Currently in stable condition. Differential Diagnosis Differential Diagnoses: The differential diagnosis associated with the presentation includes Hernia, diverticulitis, hydrocele, epididymitis, torsion, kidney stone, obstruction, abscess, perforation Admission/Observation Consideration of admission/observation: Escalation of care including admission/observation considered No need for admission only mild diverticulitis there is no perforation there is no abscess Consult Healthcare Provider Management of the patient was discussed with: Geospatial Image Analyst (Surgery) Lab Data [facility] Lab Attestation statement: I reviewed the patient's lab results. 03/30/23 10:44 03/30/23 10:44 Labs: Lab Results 03/30/23 03/30/23 Range/Units 10:44 10:46 WBC 10.9 H (4.8-10.8) X10*3/uL RBC 4.30 L (4.60-5.80) X10*6/uL Hgb 13.5 L (14.0-18.0) g/dl Hct 41.1 L (42.0-52.0) % MCV 95.6 (80.0-98.0) fL MCH 31.4 (27.0-33.0) pg MCHC 32.8 (31.0-36.0) g/dl RDW 12.4 (11.0-16.0) % Plt Count 218 (160-400) X10*3/uL MPV 9.8 (9.4-12.4) fL Immature Gran % (Auto) 0.5 H (0.0-0.4) % Neut % (Auto) 72.7 (45-73) % Lymph % (Auto) 15.0 L (20-40) % [place] % (Auto) 8.8 (2-11) % Eos % (Auto) 2.6 (0-4) % Baso % (Auto) 0.4 (0-2) % Lymph # (Auto) 1.6 (1.2-4.9) X10*3/uL [place] # (Auto) 1.0 (0.1-1.2) X10*3/uL Eos # (Auto) 0.3 (0.0-0.4) X10*3/uL Baso # (Auto) 0.0 (0.0-0.2) X10*3/uL Abs Immat Gran (auto) 0.05 H (0.00-0.03) X10*3/uL Absolute Neuts (auto) 7.9 (2.0-8.3) x10*3/uL Absolute Nucleated RBC 0.000 (0.0-0.012) X10*3/uL Nucleated RBC % (auto) 0.0 (0.0-0.2) /100WBC VBG pH 7.37 (7.32-7.43) VBG pCO2 50 mmHg VBG pO2 38 mmHg VBG HCO3 29 H (22-26) mmol/L VBG O2 Saturation 64.0 % VBG Base Excess 3.6 mmol/L Sodium 141 (135-145) mmol/L Potassium 4.0 (3.3-5.1) mmol/L Chloride 106 (96-108) mmol/L Carbon Dioxide 28 (22-29) mmol/L Anion Gap 11 L (12-20) BUN 14 (9-16) mg/dL Creatinine 0.83 (0.5-1.4) mg/dL Estim Creat Clear Calc 82.8 Estimated GFR > 60 Random Glucose 103 (60-115) mg/dL Lactic Acid 1.5 (0.5-2.0) mmol/L Calcium 8.9 (8.4-10.2) mg/dL Total Bilirubin 0.6 (0.0-1.0) mg/dL Direct Bilirubin 0.3 (0.0-0.5) mg/dL AST 13 (5-37) U/L ALT 10 (0-40) U/L Alkaline Phosphatase 74 (39-117) U/L Total Protein 6.8 (6.5-8.0) g/dL Albumin 4.1 (3.5-5.0) g/dL Lipase 15 (8-78) U/L Independent Interpretation I performed an independent interpretation of an: CT Scan (No obstruction no abscess no perforation) Radiology Impression Discussion of test interpretation with radiology: I have reviewed the radiologist's reading. External Record Review External record reviewed: Outpatient record Records from outpatient clinic reviewed. Medications Administered Discontinued Medications Generic Name Dose Route Start Last Admin Trade Name Freq PRN Reason Stop Dose Admin Sodium Chloride 500 mls @ 999 mls/hr 03/30/23 10:45 03/30/23 11:42 Ns IV 03/30/23 11:15 Infused .Q31M JIGAR Infusion Iohexol 85 ml 03/30/23 11:29 03/30/23 11:30 Iohexol 350 Mg/Ml 100 Ml Infus..Btl IV 03/30/23 11:30 85 ml ONCE ONE Administration Discharge Plan Discharge Clinical Impression: Diverticulitis, Hernia Patient Disposition: Home, Self-Care Instructions: Diverticulitis (ED), Inguinal Hernia (ED) Prescriptions: New amoxicillin-pot clavulanate 875-125 mg tablet 1 tab PO BID Qty: 20 0RF No Action lisinopril 40 mg tablet 40 mg PO DAILY Eliquis 5 mg tablet 5 mg PO BID atorvastatin 40 mg tablet 40 mg PO DAILY hydralazine 25 mg tablet PO nitrofurantoin monohyd/m-cryst [Macrobid] 100 mg capsule 100 mg PO Q12H 7 Days Qty: 14 0RF Rx Instructions: must administer with a meal/food Referrals: Jonas Abbasi MD [Physician] - 3 days
[2023-03-30 10:49] LABS: Basophils Percent Auto 0.4 % (0-2); Eosinophils Absolute Auto 0.3 X10*3/uL (0.0-0.4); Eosinophils Percent Auto 2.6 % (0-4); Hematocrit 41.1 % (42.0-52.0); Hemoglobin 13.5 g/dl (14.0-18.0); Imm Gran Abs Auto 0.05 X10*3/uL (0.00-0.03); Imm Gran Pct Auto 0.5 % (0.0-0.4); Lymphocytes Absolute Auto 1.6 X10*3/uL (1.2-4.9); MANUAL DIFF FLAG NO; Mean Corpuscular HGB Conc 32.8 g/dl (31.0-36.0); Mean Corpuscular Hemoglobin 31.4 pg (27.0-33.0); Mean Corpuscular Volume 95.6 fL (80.0-98.0); Mean Platelet Volume 9.8 fL (9.4-12.4); Monocytes Percent Auto 8.8 % (2-11); Neutrophils Absolute Auto 7.9 x10*3/uL (2.0-8.3); Neutrophils Percent Auto 72.7 % (45-73); Platelet Count 218 X10*3/uL (160-400); Red Cell Distribution Width 12.4 % (11.0-16.0); White Blood Count 10.9 X10*3/uL (4.8-10.8)
[2023-03-30 10:51] LABS: Venous Blood Gas Refer to POC result
[2023-03-30 10:52] LABS: VBG Base Excess 3.6 mmol/L; VBG HCO3 29 mmol/L (22-26); VBG pCO2 50 mmHg; VBG pH 7.37 (7.32-7.43); VBG pO2 38 mmHg
[2023-03-30] MEDS: 0.9 % Sodium Chloride 500 ML 999 ML IV (10:57)
[2023-03-30 11:09] LABS: Lactic Acid 1.5 mmol/L (0.5-2.0)
[2023-03-30 11:16] LABS: Alanine Aminotransferase 10 U/L (0-40); Albumin Level 4.1 g/dL (3.5-5.0); Alkaline Phosphatase 74 U/L (39-117); Anion Gap 11 (12-20); Aspartate Amino Transferase 13 U/L (5-37); Bilirubin Direct 0.3 mg/dL (0.0-0.5); Bilirubin Total 0.6 mg/dL (0.0-1.0); Blood Urea Nitrogen 14 mg/dL (9-16); Calcium 8.9 mg/dL (8.4-10.2); Carbon Dioxide 28 mmol/L (22-29); Chloride 106 mmol/L (96-108); Creatinine Clr Calc Pharmacy 82.8; Estimated Glomerular Filt Rate > 60; Glucose Random 103 mg/dL (60-115); Lipase 15 U/L (8-78); Sodium 141 mmol/L (135-145); Total Protein 6.8 g/dL (6.5-8.0)
[2023-03-30] MEDS: iohexoL 350 MG/ML 100 ML INFUS..BTL 85 ML IV (11:30)
[2023-03-30 13:37] VITALS: BP 150/76; PULSE 60; RESP 16; TEMP 36.7; O2SAT 98
== END 2023-03-30 16:02 | disposition home or self-care (01) ==
PROVIDERS: Emergency Provider Emergency Medicine Emergency Medical Services; PCP Nurse Practitioner Family
DX: K57.32 Diverticulitis of large intestine without perforation or abscess without bleeding (principal); K40.90 Unilateral inguinal hernia, without obstruction or gangrene, not specified as recurrent; R10.31 Right lower quadrant pain; N50.82 Scrotal pain; R11.2 Nausea with vomiting, unspecified; R10.2 Pelvic and perineal pain; Z87.891 Personal history of nicotine dependence; Z79.899 Other long term (current) drug therapy
CPT/HCPCS: 36415; 74177; 76870; 80048; 80076; 82803; 83605; 83690; 85025; 93975; 96360; 99284; Q9967

== ENCOUNTER 2023-04-11 14:27 | Outpatient (AMB) | payer OTHER, SELFPAY ==
--- NOTE | 2023-04-11 14:38 | A.OFFVIS_ITS ---
Intake Vital Signs 04/11/23 14:55 Height 5 ft 9 in Weight 172 lb BMI 25.4 BP 140/79 H Blood Pressure Location Lt brachial Position Sitting Pulse 87 Intake Visit Reasons: possible hernia Intake Note: Patient is seen in office for ER follow up visit, possible hernia. 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 He went to the ER on 03/30/2023 because of a ?lump? on his right groin. He actually was supposed to have an ultrasound at that time. He therefore underwent a CT scan in the ER as well as ultrasound and this showed a large right hydrocele and small fat containing hernia on the right He does state that he has had very swollen right scrotum for about few years now. He says that he did not have this pain on the right groin until about 5 or 6 months ago. He says that occasionally, he thinks he has a small lump on the area. He denies any GI complaints. His CAT scan 2 weeks ago in the ER also showed some after changes in the sigmoid consistent with mild diverticulitis. He said that he did not really have left lower quadrant pain at that time. [facility] Medical History (Updated 04/11/23 @ 15:14 by Jonas Abbasi MD) Hydrocele in adult HTN (hypertension) Alcohol intake: former Patient Tobacco Use Status: Former Tobacco user Review of Systems Const Denies chills and Denies fever(s) Card Denies chest pain, Denies dyspnea and Denies dyspnea on exertion Resp Denies cough, Denies dyspnea and Denies dyspnea on exertion GI Denies hematochezia and Denies change in bowel habits Denies hematuria and Denies difficulty urinating Musc Denies back pain and Denies limited range of motion Neuro Denies focal weakness and Denies convulsions Psych Denies depression and Denies mood swings Physical Exam Vital Signs: Last Vital Signs Pulse 87 04/11/23 14:55 BP 140/79 H 04/11/23 14:55 BMI result Body Mass Index 25.4 Const General: comfortable and no acute distress Orientation/consciousness: patient oriented x3 Neck Neck: Yes no lymphadenopathy Resp Auscultation: clear to auscultation bilaterally Cardio Rhythm: regular rhythm GI Other: Small palpable right inguinal hernia, noted only with Valsalva Palpation (GI): Soft to palpation, nontender and no guarding Other: Large right scrotum, consistent with his hydrocele seen on ultrasound Neuro General: patient oriented x3 Assessment & Plan Assessment & Plan (1) Inguinal hernia of right side without obstruction or gangrene: Comment: Scrotal ultrasound will be ordered; patient will follow-up with [facility] on 04/14. Code(s): K40.90 - Unilateral inguinal hernia, without obstruction or gangrene, not specified as recurrent Plan: He has a small fat containing right inguinal hernia. He does describe some occasional pain with this. I did describe with him the technique of repair of this right inguinal hernia with mesh. I also reviewed with him the risks including but not limited to bleeding, infections, injury to other organs including bowel and the vas deferens, postop pain, recurrence, as well as the benefits and alternatives. He is to see his urologist this Tuesday. I told him that we need to see him back in the office after that so we can review input from his radiologist. (2) Hydrocele in adult: Code(s): N43.3 - Hydrocele, unspecified Plan: He has a large right hydrocele on the right side. He is scheduled to see his urologist this Tuesday. I will see him in the office again thereafter. He understands the plan well and is comfortable with this. Coding Level of Care Code New Pt Level 3 (21025) Diagnoses Inguinal hernia of right side without obstruction or gangrene K40.90 Hydrocele in adult N43.3
[2023-04-11 14:55] VITALS: BP 140/79; PULSE 87; BMI 25.4
== END 2023-04-11 15:11 | disposition home or self-care (01) ==
PROVIDERS: PCP Nurse Practitioner Family; Visit Provider Surgery
DX: K40.90 Unilateral inguinal hernia, without obstruction or gangrene, not specified as recurrent (principal); N43.3 Hydrocele, unspecified
CPT/HCPCS: 99203

== ENCOUNTER → 2023-04-11 14:27 | Outpatient (BNVA) | payer OTHER, SELFPAY | PROVIDERS: PCP Nurse Practitioner Family; Visit Provider Surgery | DX: K40.90 Unilateral inguinal hernia, without obstruction or gangrene, not specified as recurrent (principal); N43.3 Hydrocele, unspecified | CPT/HCPCS: 99202 ==

== ENCOUNTER 2023-04-25 12:19 | Outpatient (AMB) | payer OTHER, SELFPAY ==
[2023-04-25 12:28] VITALS: BP 124/68; PULSE 69; O2SAT 100; BMI 24.4
--- NOTE | 2023-04-25 12:28 | MHC.PC.OV ---
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 Intake Note: Pt is here today as a New Patient to est care Allergies No Known Allergies Allergy (Verified 04/25/23 12:57) Medication List - Last Reconciled 04/25/23 by JUAN PABLO Wheeler apixaban (Eliquis) 5 mg PO BID atorvastatin 40 mg PO DAILY hydralazine mg PO lisinopril 40 mg PO DAILY tamsulosin 0.4 mg PO DAILY Tobacco use date assessed: 04/25/23 Fall risk assessment: No Falls in past year Last assessed Fall Risk: 04/25/23 Dental Screening Dental Screen Date: 04/25/23 Did you have a dental visit in the last 12 months?: No HPI HPI Comments History of Present Illness Details The patient is a 72-year-old male here to establish care. He has a past medical history significant for hypertension, hyperlipidemia, congestive heart fail, recurrent UTI's, BPH, chronic kidney disease, cardiomyopathy. He has a surgical history of hydrocele repair. He has a chief complaint of rash on his abdomen, and around his navel. He states that the rash is several weeks old, but that it is getting progressively worse, and progressively more itchy. The patient has a history of dry skin, and fungal infection. He has not tried any lotions or treatment to the area. He is due for colonoscopy. He has declined immunization. He is currently seen [facility]. Will obtain release to get information. Patient reportedly has inguinal hernia repair scheduled for later this month. [facility] Medical History (Updated 04/25/23 @ 15:33 by JUAN PABLO Wheeler) Hyperlipidemia Congestive heart disease Hydrocele in adult HTN (hypertension) Surgical History Status post repair of hydrocele Social History (Updated 04/25/23 @ 13:28 by JUAN PABLO Wheeler) Housing: House Alcohol intake: former Patient Tobacco Use Status: Current everyday Tobacco user Cigarettes Per Day: 10 Years Smoked: 50 e-Cigarette/Vaping Use: Never Used service: No Current occupational status: employed Cognitive needs: No Hearing needs: No Vision needs: Yes Questionnaire PHQ-9 Over the last 2 weeks, how often have you been bothered by any of the following problems? 1. Little interest or pleasure in doing things: several days 2. Feeling down, depressed, or hopeless: more than half the days 3. Trouble falling or staying asleep, or sleeping too much: several days 4. Feeling tired or having little energy: more than half the days 5. Poor appetite or overeating: more than half the days 6. Feeling bad about yourself - or that you are a failure or have let yourself or your family down: several days 7. Trouble concentrating on things, such as reading the newspaper or watching television: more than half the days 8. Moving or speaking so slowly that other people could have noticed. Or the opposite - being so fidgety or restless that you have been moving around a lot more than usual: several days 9. Thoughts that you would be better off or of hurting yourself in some way: not at all Total score: 12 Depression Screening Interpretation: Negative Depression Screening Done: Yes 77393 - PHQ-9 Billing: Yes Source: Developed by Drs. Lai Carson, Imelda Bennett, Mele Recinos and colleagues, with an educational jair from [employer]. Thrive Questionnaire Date Thrive assessed: 04/25/23 I am a: Patient What is your living situation today?: I have a steady place to live Within the past 12 months, did the food you bought not last and you didn't have the money to get more?: Never true Within the past 12 months, did you worry whether your food would run out before you got money to buy more?: Never true Do you have trouble paying for medicines?: No Do you have trouble getting transportation to medical appointments?: Yes Do you have trouble paying your heating and electricity bill?: No Do you have trouble taking care of your child, family member or friend?: No Do you have trouble with day-to-day activities such as bathing, preparing meals, shopping, managing finances, etc.?: Yes Are you currently unemployed and looking for a job?: No Are you interested in more education?: No AUDIT C Alcohol Use Questionnaire (AUDIT-C) 1. How often do you have a drink containing alcohol?: Never Total Score: 0 VIKTOR-7 AMB Questionnaire VIKTOR-7 Date VIKTOR - 7 assessed: 04/25/23 Feeling nervous, anxious, or on edge: 2 = More than half the days Not being able to stop or control worryin = Several days Worrying too much about different things: 2 = More than half the days Trouble relaxin = More than half the days Being so restless that it is hard to sit still: 2 = More than half the days Becoming easily annoyed or irritable: 1 = Several days Feeling afraid as if something awful might happen: 1 = Several days Total VIKTOR-7 score (0-4 normal; 5-9 mild; 10-14 moderate; 15-21 severe): 11 Source: Developed by Drs. Lai Carson, Imelda Bennett, Mele Recinos and colleagues, with an educational jair from [employer]. VIKTOR-7 Assessment Billing VIKTOR-7 Assessment Tool: VIKTOR-7 Assessment 53595 Review of Systems Const Details: Constitutional : No Weight loss, No Fever, No Chills, No Fatigue, No Malaise ENT/Mouth : No sore throat, No Rhinorrhea Eyes: No Eye Pain, No Swelling, No Redness Cardiovascular : No Chest Pain, No SOB, No Dyspnea on Exertion, Admits occasional dizziness after standing, No Edema, No Palpitations Respiratory : No Cough, No Sputum, No Wheezing Gastrointestinal : No Nausea, No Vomiting, No Diarrhea, No Constipation, No abdominal Pain, No Hematochezia, No Melena Genitourinary : No Dysuria, No Urinary Frequency, No Hematuria, Musculoskeletal : No joint pain, No Myalgias, No Joint Swelling Skin : Rash on abd and upper back. Neuro : No Weakness, No Numbness, No Dizziness, No Headache Psych : No Anxiety/Panic, No Depression Heme/Lymph: No Bruising, No Bleeding,No Lymphadenopathy Endocrine : No Polyuria, No Polydipsia All other systems reviewed and are negative Physical exam (Primary Care) Vital Signs: Last Vital Signs Pulse 69 04/25/23 12:28 BP 124/68 04/25/23 12:28 Pulse Ox 100 04/25/23 12:28 Oxygen Delivery Method Room Air 04/25/23 12:28 Care Plan Goal for BP management: Vital signs reviewed and stable. Patient has in office EKG that demonstrated first-degree block. Next steps: Patient has established soft water mechanic will send EKG report to them. BMI result Body Mass Index 24.4 Tobacco/Smoking Status: Tobacco use Status Tobacco use date assessed 04/25/23 04/25/23 12:36 Patient Tobacco Use Status Current everyday Tobacco 04/25/23 13:28 e-Cigarette/Vaping Use Never Used 04/25/23 13:28 Are you ready to quit: No Tobacco cessation counseling provided: No PHQ-9: PHQ-9 Score PHQ-9: Total score 12 04/25/23 14:08 Depression Screening Interpretation: Negative Thrive Assessment: Date of Thrive Assessment Date Thrive assessed 04/25/23 04/25/23 13:56 Const General: cooperative and no acute distress Orientation/consciousness: patient oriented x3 Limitations: no limitations HENMT Head: Yes normal to inspection and Yes normocephalic Ears: TM's normal bilaterally Eyes Pupils: Equal, round and reactive pupils present Direct Ophthalmoscopy: normal light reflex and no photophobia Neck Neck: Yes normal visual inspection, Yes full ROM and Yes no lymphadenopathy Resp Auscultation: diminished lung sounds bilateral Cardio Rate: bradycardic Rhythm: regular rhythm Male General Exam: Yes hernia (Right-sided inguinal hernia) Skin General skin exam: dry skin (Feet and abdomen.) and erythema (The abdomen) Neuro General: patient oriented x3 Cranial nerves: Yes CN's II-XII intact bilaterally and Yes Equal, round and reactive pupils present Deep tendon reflexes (DTR's): Right patellar reflex intensity grade: 2+ and Left patellar reflex intensity grade: 2+ Extrem Right lower extremity: foot (Dry skin) Left lower extremity: foot (Dry skin) Psych Thought content: Normal thought content present, suicidality and no homicidality Insight: Good insight present (Psych) Judgement: Good judgement present (Psych) Office Procedures EKG [id number], Complete Office Procedure Misc Details: Patient had postural vital signs performed. Results were not significant for postural hypotension. Results Reviewed Results Reviewed: Reviewed in office EKG with patient. WBC 10.9 H 4.8-10.8 X10*3/uL RBC 4.30 L 4.60-5.80 X10*6/uL HGB 13.5 L 14.0-18.0 g/dl HCT 41.1 L 42.0-52.0 % MCV 95.6 80.0-98.0 fL MCH 31.4 27.0-33.0 pg MCHC 32.8 31.0-36.0 g/dl RDW 12.4 11.0-16.0 % PLT 218 160-400 X10*3/uL MPV 9.8 9.4-12.4 fL Neut Pct Auto 72.7 45-73 % ImGran Pct Auto 0.5 H 0.0-0.4 % Lymp Pct Auto 15.0 L 20-40 % [place] Pct Auto 8.8 2-11 % Eos Pct Auto 2.6 0-4 % Baso Pct Auto 0.4 0-2 % NRBC Pct Auto 0.0 0.0-0.2 /100WBC ANC Neut Abs # 7.9 2.0-8.3 x10*3/uL ImGran Abs Auto 0.05 H 0.00-0.03 X10*3/uL Lymph Abs Auto 1.6 1.2-4.9 X10*3/uL [place] Abs Auto 1.0 0.1-1.2 X10*3/uL Eos Abs Auto 0.3 0.0-0.4 X10*3/uL Baso Abs Auto 0.0 0.0-0.2 X10*3/uL NRBC Abs Auto 0.000 0.0-0.012 X10*3/uL Sodium 141 135-145 mmol/L Potassium 4.0 3.3-5.1 mmol/L CL 106 96-108 mmol/L CO2 28 22-29 mmol/L Gap 11 L 12-20 BUN 14 9-16 mg/dL Creat 0.83 0.5-1.4 mg/dL Estimated CrCl 82.8 eGFR (calculated from the MDRD study equation) and eCrCl (calculated from the Cockcroft-Gault equation) are based on different parameters and may not yield comparable results. If eCrCl result is absurd, please check patient's height/weight. EGFR > 60 NOTE: For -Gabonese individuals, multiply the result by 1.210. Chronic Kidney Disease: Estimated GFR < 60 mL/min/1.73m2 Severe Kidney Disease: Estimated GFR < 15 mL/min/1.73m2 Glucose, Random 103 60-115 mg/dL CA 8.9 8.4-10.2 mg/dL Total Bili 0.6 0.0-1.0 mg/dL Direct Bili 0.3 0.0-0.5 mg/dL AST (GOT) 13 5-37 U/L ALT (GPT) 10 0-40 U/L Protein, Total 6.8 6.5-8.0 g/dL Alb 4.1 3.5-5.0 g/dL Alk Phos 74 39-117 U/L Lipase 15 8-78 U/L Assessment and Plan Assessment & Plan (1) Bradycardia: Comment: Patient has cardiologists at [facility]. Reviewed cardiology record. Prior EKG demonstrated 1st degree A-V block. He was last seen by soft water mechanic in August of 2022. Will send over EKG performed in office today to [facility]. Patient stated in review of systems that he occasionally felt dizzy after standing up. In office EKG demonstrated heart rate of 52 beats per minute with first-degree AV block. Patient was instructed to follow up with his soft water mechanic. He has been educated on signs of worsening symptoms and when to report back to the office or when to present to the emergency room. Code(s): R00.1 - Bradycardia, unspecified (2) Fungal infection of skin of abdomen: Comment: Patient has superficial fungal infection surrounding the navel. Will prescribe clotrimazole with betamethasone to be applied as directed. Patient is educated to stop using the lotion if symptoms worsen. Will also supply referral to dermatology. Code(s): B36.9 - Superficial mycosis, unspecified (3) Athlete's foot: Comment: Patient has dry flaking skin on bilateral feet with erythema. Patient educated that he can use [id number] cream for athlete's foot. Patient will be referred to Podiatry. Patient has history of recurrent Tinea Pedis. Code(s): B35.3 - Tinea pedis Qualifiers: Laterality: bilateral Qualified Code(s): B35.3 - Tinea pedis (4) Decreased lung sounds: Comment: Patient had diminished lung sounds bilaterally throughout. He has a past history of over 30 years, he is a current smoker. She does not remember ever performing pulmonary function test, including diffusion capacity or lung volumes. Will refer to pulmonology. Code(s): R06.89 - Other abnormalities of breathing Plan Patient has follow-up appointment in 3 months. Orders: Orders AMB EKG-In Office Today Z01.818 - Encounter for other preprocedural examination PFT pulmonary function test Today R06.89 - Other abnormalities of breathing Referrals Dermatology Referral B36.9 - Superficial mycosis, unspecified Gastroenterology Referral Z76.89 - Persons encountering health services in other specified circumstances Podiatry Referral B35.3 - Tinea pedis Pulmonology Referral R06.89 - Other abnormalities of breathing Medications: New clotrimazole-betamethasone 1-0.05 % 1 appl topical BID 4 weeks 45 grams 0RF Review Patient declined Pneumococcal Vaccine: 04/25/23 Flu Vaccine not done: patient reason Coding Level of Care Code Est Pt Level 3 (44339) Diagnoses Bradycardia R00.1 Fungal infection of skin of abdomen B36.9 Tinea pedis of both feet B35.3 Laterality: bilateral Decreased lung sounds R06.89 CPT Codes EKG - CPT: 76126-[id number], Complete ([id number]) Additional Codes VIKTOR-7 Assessment Billing - VIKTOR-7 Assessment Tool: VIKTOR-7 Assessment 88177 ([id number]) Time Spent (min) 30
== END 2023-04-25 14:49 | disposition home or self-care (01) ==
PROVIDERS: PCP Nurse Practitioner Family; Visit Provider Nurse Practitioner Primary Care
DX: R00.1 Bradycardia, unspecified (principal); B36.9 Superficial mycosis, unspecified; B35.3 Tinea pedis; R06.89 Other abnormalities of breathing
CPT/HCPCS: 93000; 99499

== ENCOUNTER 2023-04-28 10:19 | Outpatient (AMB) | payer OTHER, SELFPAY ==
--- NOTE | 2023-04-28 10:47 | A.OFFVIS_ITS ---
Intake Vital Signs 04/28/23 10:51 Height 5 ft 9 in Weight 165 lb BMI 24.4 BP 150/64 H Blood Pressure Location Lt brachial Position Sitting Intake Visit Reasons: possible hernia Intake Note: This patient presents for a follow-up assessment for possible hernia. 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 A CT scan showing a fat containing right inguinal hernia. He also says that he feels a lump on this area especially with exertion and ambulation He describes some discomfort. I had referred him to the urologist because of the presence of a hydrocele in the right scrotum as well. He apparently had been told that it was okay to proceed with hernia repair. He wants to proceed with right inguinal hernia repair because of associated discomfort. He has known first-degree AV block. [facility] Medical History (Updated 04/28/23 @ 11:12 by Jonas Abbasi MD) Right inguinal hernia Hyperlipidemia Congestive heart disease Hydrocele in adult HTN (hypertension) Surgical History Status post repair of hydrocele Social History Housing: House Alcohol intake: former Patient Tobacco Use Status: Current everyday Tobacco user Cigarettes Per Day: 10 Years Smoked: 50 e-Cigarette/Vaping Use: Never Used service: No Current occupational status: employed Cognitive needs: No Hearing needs: No Vision needs: Yes Review of Systems Const Denies chills and Denies fever(s) Card Denies chest pain, Denies dyspnea and Denies dyspnea on exertion Resp Denies cough, Denies dyspnea and Denies dyspnea on exertion GI Denies hematochezia and Denies change in bowel habits Denies hematuria and Denies difficulty urinating Musc Denies back pain and Denies limited range of motion Neuro Denies focal weakness and Denies convulsions Psych Denies depression and Denies mood swings Physical Exam Vital Signs: Last Vital Signs BP 150/64 H 04/28/23 10:51 BMI result Body Mass Index 24.4 Const General: comfortable and no acute distress Orientation/consciousness: patient oriented x3 Neck Neck: Yes no lymphadenopathy Resp Auscultation: clear to auscultation bilaterally Cardio Rhythm: regular rhythm GI Other: Right inguinal hernia noted, more pronounced with Valsalva, easily reducible Palpation (GI): Soft to palpation, nontender and no guarding Other: Hydrocele the right scrotal Neuro General: patient oriented x3 Assessment & Plan Assessment & Plan (1) Right inguinal hernia: Code(s): K40.90 - Unilateral inguinal hernia, without obstruction or gangrene, not specified as recurrent Plan: Current exam does show a right inguinal hernia which is easily reducible. This is more obvious with Valsalva. This is seen to be fat containing in all his CAT scan He wants to proceed with repair in view of discomfort. I explained the technique of repair of the right inguinal hernia with mesh. I reviewed the risks including but not limited to bleeding, infections, injury to bowel or the testicle, recurrence, postop pain, as well as the benefits and alternatives. He wants to proceed He had been seen by his urologist for his hydrocele who had recommended going ahead with the right inguinal hernia repair. 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 Coding Level of Care Code Est Pt Level 4 (68197) Diagnoses Right inguinal hernia K40.90
[2023-04-28 10:51] VITALS: BP 150/64; BMI 24.4
== END 2023-04-28 11:08 | disposition home or self-care (01) ==
PROVIDERS: PCP Nurse Practitioner Family; Visit Provider Surgery
DX: K40.90 Unilateral inguinal hernia, without obstruction or gangrene, not specified as recurrent (principal)
CPT/HCPCS: 99214

== ENCOUNTER → 2023-04-28 10:19 | Outpatient (BNVA) | payer OTHER, SELFPAY | PROVIDERS: PCP Nurse Practitioner Family; Visit Provider Surgery | DX: K40.90 Unilateral inguinal hernia, without obstruction or gangrene, not specified as recurrent (principal) | CPT/HCPCS: 99212 ==

== ENCOUNTER 2023-05-12 14:49 | Outpatient (REF) | payer OTHER, SELFPAY ==
--- NOTE | 2023-05-12 15:23 | PFT_ITS ---
Indication: Preop Spirometry [FEV1 to FVC 47%; with FEV1 of 2.29 L which is 100% predicted; FVC 4.87 L which I am relying % predicted. No significant response to bronchodilators noted. Maximum voluntary ventilation 63% predicted.] Lung Volumes [Total lung capacity 109% predicted; residual volume 129% predicted] Diffusion Capacity [DLCO 72% predicted] Comparisons [None] Interpretation [There is an obstructive ventilatory defect consistent with COPD. The patient did not have a significant response to bronchodilators noted. Moderate decrease in the maximum voluntary ventilation secondary to likely deconditioning. Lung volumes with significant air trapping due to the COPD. There is a mild diffusion impairment. Clinical correlation warranted.] MTDD
== END 2023-05-12 14:50 | disposition home or self-care (01) ==
LOC: HO.RESP 14:49
PROVIDERS: Visit Provider Nurse Practitioner Primary Care
DX: R06.89 Other abnormalities of breathing (principal)
CPT/HCPCS: 94010; 94727; 94729

== ENCOUNTER → 2023-05-12 15:23 | Outpatient (BNV) | payer OTHER, SELFPAY | PROVIDERS: Visit Provider Hospitalist | DX: R06.89 Other abnormalities of breathing (principal) | CPT/HCPCS: 94060; 94727; 94729 ==

== ENCOUNTER 2023-06-07 08:23 | Day surgery (SDC) | payer OTHER, SELFPAY ==
[2023-05-30 10:04] VITALS: BMI 24.4
--- NOTE | 2023-05-31 10:09 | HO.ANESPROP2 ---
Documented by User: Spring Ceja NP 05/31/23 10:35 HPI - Anesthesia Eval Consult details Narrative: 72yo M for Right Hernia Inguinal w/mesh Cardiac cleared - 1st AV block and periods of possible wenckebach on EKG, but no indication for pacing at present time Urology cleared - hydrocele present but recommend inguinal hernia repair first Eliquis for aflutter PMFSH Active Problems Active Problems: All Active Problems (Updated 05/30/23 @ 10:03 by Rema Byrne RN) Decreased lung sounds (Acute) Establishing care with new doctor, encounter for (Acute) Athlete's foot (Acute) Fungal infection of skin of abdomen (Acute) Bradycardia (Acute) Pre-operative clearance (Acute) Inguinal hernia of right side without obstruction or gangrene (Acute) Urinary frequency (Acute) Right inguinal hernia (Acute) Congestive heart disease (Acute) Hydrocele in adult (Acute) Past Medical History Medical History Atrial flutter Right inguinal hernia Hyperlipidemia Congestive heart disease Hydrocele in adult HTN (hypertension) Surgical History Surgical History Hx of cardiac catheterization Hx of pyloroplasty H/O colonoscopy Social History Social History Housing: House Are you a primary medical care administrator to a significant other at home: No Do you presently have visiting nurse or other home services: No Alcohol intake: former Patient Tobacco Use Status: Current everyday Tobacco user Tobacco use type: Cigarette Cigarettes Per Day: 10 Years Smoked: 50 e-Cigarette/Vaping Use: Never Used Use of substances other than those prescribed or required for medical reasons: No Have you been hit, kicked, punched, or otherwise hurt by someone within the past year? If so, by whom?: No Are you DNR?: No Advance Directives: No Advance Directives Information Provided: Yes Advance Directives on File: No Recently lost weight without trying: No Eating poorly because of decreased appetite: No Nutrition Risks: No Nutritional Risk Poor oral hygiene: No (missing teeth) service: No Current occupational status: employed Cognitive needs: No Hearing needs: No Vision needs: Yes Meds Allergies Allergy/AdvReac Type Severity Reaction Status Date / Time No Known Allergies Allergy Verified 06/07/23 08:48 Home Medications Medication Instructions Recorded Confirmed Last Taken Type apixaban 5 mg tablet (Eliquis) 5 mg PO BID 03/19/23 06/07/23 06/04/23 History atorvastatin 40 mg tablet 40 mg PO BEDTIME 03/19/23 06/07/23 06/06/23 History hydralazine 25 mg tablet 75 mg PO BID 03/19/23 06/07/23 06/06/23 History lisinopril 40 mg tablet 40 mg PO BEDTIME 03/19/23 06/07/23 06/06/23 History tamsulosin 0.4 mg capsule 0.4 mg PO BEDTIME 04/25/23 06/07/23 06/06/23 History Exam Height,Weight and Vital Signs: Height 5 ft 9 in Weight 74.843 kg Pertinent Lab Results Pertinent Lab Results: Laboratory Tests 03/30/23 10:44 WBC 10.9 H Hgb 13.5 L Hct 41.1 L Plt Count 218 Sodium 141 Potassium 4.0 Chloride 106 Carbon Dioxide 28 BUN 14 Creatinine 0.83 Narrative Narrative: EKG 04/2023 SB with 1st deg AV block and PAC's Anterior infarct ECHO 11/2021 LV size is normal. LV wall thickness is mildly increased. Apical images are foreshortened. Vigorous LV systolic function. EF 65-70%. No RWMA. No doppler evidence of increased filling pressures. LA nml in size Lipomous hypertropy of interatrial septum. Trileaflet aortic valve. No aortic regurg. No aortic stenosis. RV nml in size and function. No pericardial effusion. PFT 04/2023 Spirometry [FEV1 to FVC 47%; with FEV1 of 2.29 L which is 100% predicted; FVC 4.87 L which I am relying % predicted. No significant response to bronchodilators noted. Maximum voluntary ventilation 63% predicted.] Lung Volumes [Total lung capacity 109% predicted; residual volume 129% predicted] Diffusion Capacity [DLCO 72% predicted] Comparisons [None] Interpretation [There is an obstructive ventilatory defect consistent with COPD. The patient did not have a significant response to bronchodilators noted. Moderate decrease in the maximum voluntary ventilation secondary to likely deconditioning. Lung volumes with significant air trapping due to the COPD. There is a mild diffusion impairment. Clinical correlation warranted.] Assessment and Plan Assessment Anesthesia Assessment: Chart Reviewed Documented by User: Trevor Stover MD 06/07/23 10:51 PMFSH Past Medical History Medical History Atrial flutter Right inguinal hernia Hyperlipidemia Congestive heart disease Hydrocele in adult HTN (hypertension) Family History Family history of problems with anesthesia: No Surgical History Surgical History Hx of cardiac catheterization Hx of pyloroplasty H/O colonoscopy History of Problems with Anesthesia: No Social History Social History Housing: House Are you a primary medical care administrator to a significant other at home: No Do you presently have visiting nurse or other home services: No Alcohol intake: former Patient Tobacco Use Status: Current everyday Tobacco user Tobacco use type: Cigarette Cigarettes Per Day: 10 Years Smoked: 50 e-Cigarette/Vaping Use: Never Used Use of substances other than those prescribed or required for medical reasons: No Have you been hit, kicked, punched, or otherwise hurt by someone within the past year? If so, by whom?: No Are you DNR?: No Advance Directives: No Advance Directives Information Provided: Yes Advance Directives on File: No Recently lost weight without trying: No Eating poorly because of decreased appetite: No Nutrition Risks: No Nutritional Risk Poor oral hygiene: No (missing teeth) service: No Current occupational status: employed Cognitive needs: No Hearing needs: No Vision needs: Yes Meds Allergies Allergy/AdvReac Type Severity Reaction Status Date / Time No Known Allergies Allergy Verified 06/07/23 08:48 Home Medications Medication Instructions Recorded Confirmed Last Taken Type apixaban 5 mg tablet (Eliquis) 5 mg PO BID 03/19/23 06/07/23 06/04/23 History atorvastatin 40 mg tablet 40 mg PO BEDTIME 03/19/23 06/07/23 06/06/23 History hydralazine 25 mg tablet 75 mg PO BID 03/19/23 06/07/23 06/06/23 History lisinopril 40 mg tablet 40 mg PO BEDTIME 03/19/23 06/07/23 06/06/23 History tamsulosin 0.4 mg capsule 0.4 mg PO BEDTIME 04/25/23 06/07/23 06/06/23 History Exam Airway Mallampati Class: II TM Dist: >3cm Neck ROM: Full Loose/Missing/Broken Teeth: No Heart: ok Lungs: ok Assessment and Plan Assessment Anesthesia Assessment: Anesthesia Plan Discussed Final Anesthetic Review Family History of Problems with Anesthesia: No History of Problems with Anesthesia: No NPO: Yes ASA Class: III Final Preanesthetic Review: No Changes in Pt Med Stat, Meds/Allgs Chart Reviewed, Consent Obtained/Reviewed and Anes Risks/Benef Reviewed Patient Risk: Intermediate Procedure Risk: Low Anesthetic Plan Anesthetic Plan: GA and Agree w/ Assess. and Plan Disposition: Standard PACU
[2023-06-07] VITALS (7 sets, daily range): BP systolic 123–160; BP diastolic 69–84; PULSE 49–68; RESP 16–18; TEMP 36.3–36.7; O2SAT 97–99; BMI 23.9
[2023-06-07] MEDS: Lactated Ringers 1,000 ML 50 ML IVCONT (09:11)
--- NOTE | 2023-06-07 10:02 | MHC.SHP ---
Pre-Procedural Eval Section A Date of Service: 06/07/23 Section B Chief Complaint: Unilateral inguinal hernia, without obstruction or Details of Present Illness: Has a reducible right inguinal hernia Relevant Social History: None Present Medications: see Short Stay Collaborative assessment Medical History: Significant History (Mild CHF, first-degree AV block) Allergies: Allergies Allergy/AdvReac Type Severity Reaction Status Date / Time No Known Allergies Allergy Verified 06/07/23 08:48 Review of Systems Sugical H&P ROS: Negative: Constitution, Cardiovascular, Respiratory, Neurological, Psychiatric, Hem-Onc, Allergic/Immunologic, Gastrointestinal, Genitourinary, Musculoskeletal, Integumentary, Endocrine and Eyes/Ears/Nose/Throat Exam Surgical H&P Exam: Normal: HEENT, Normal: Heart, Normal: Lungs, Normal: Extremities, Normal: Skin and Normal: Neurological and Significant Findings: Abdomen (Right inguinal hernia, reducible) Plan Diagnosis/Plan: Unchanged I have reviewed the history and physical and performed a pertinent physical examination on my patient. No changes have occurred unless specified. Time Spent With Patient Time: Total time managing care of this patient today ____ minutes.
--- NOTE | 2023-06-07 11:13 | W.PM.OPN ---
Operative Note Operative Note Date of Service: 06/07/23 Narrative: Preop diagnosis: Inguinal hernia, right Postop diagnosis: Right inguinal hernia, indirect Procedure: Repair of right inguinal hernia with mesh Surgeon: Jonas Abbasi MD infertility medical assistant: CHARLEY Oliveros The patient is a 72-year-old male with a reducible mass on the right groin consistent with a right inguinal hernia. He wanted to proceed with repair. He understood the technique of repair with mesh and he was aware of the risks, benefits, and alternatives. He had been on Eliquis and this was held as well preoperatively. He was brought to the operating room. He was placed supine under general anesthesia via laryngeal mask airway. The right groin was prepped and draped in the usual sterile fashion. A surgical time-out was done. The patient received cefazolin 2 g IV preoperatively. I infiltrated the planned line of incision with lidocaine 1%. I made a short incision along an imaginary line from the anterior superior iliac spine to the pubic ramus using a blade 15. This was carried down through the full-thickness of the skin and subcutaneous fat with electrocautery. I visualized the external oblique aponeurosis. I bluntly dissected this with a gauze to expose the external ring. I then made an incision on the external oblique aponeurosis using a blade 15 and extended this inferomedially to connect with the external ring. The inguinal canal was therefore entered . I bluntly dissected the spermatic cord and its contents with an index finger until was able to pass a Republic drain around this. This Republic drain was used for retraction. I identified the vas deferens and its accompanying vessels. I was able to visualized the sac by gently thinning out the rest of the cord contents. This sac was anteromedial to the area of the vas deferens and was consistent with a an indirect hernia. This was fat containing. This was however a large hernia and was intimately related to the rest of the cord contents. I could not safely reduce the sac on the distal part of the spermatic cord so I gently define the rest of the sac and open this. I transected the sac leaving part of the sac distally. I sent the sac and ligated this at the base. This was divided above the ligature. The rest of this sac was sent as a specimen. I reduced the stump of the sac through the internal ring. I reinforced the internal ring with a medium-sized Prolene plug. The plug was secured with Prolene 2 sutures to the shelving edge of the inguinal laterally and the internal oblique superiorly and medially using the inner leaves of the plug. I then used a keyhole mesh to reinforce the entire floor. The tails of the mesh were passed around the cord at the level of the internal ring. I secured these together with Prolene 2 sutures. I then secured the mesh to the shelving edge of the inguinal ligament laterally and the internal oblique superiorly and medially as well as the pubic ramus inferomedially with Prolene 2-0 sutures . I observed for hemostasis. I then irrigated. Once hemostasis was confirmed, I closed the external oblique aponeurosis with a running Polysorb 2-0 stitch to re-create the external ring. The subcutaneous layer was reapposed with Polysorb 3-0 interrupted sutures. Skin closure was achieved with Polysorb 4-0 subcuticular running sutures. Steri-Strips and dressings were applied. The area was infiltrated with Marcaine 0.5% for postop analgesia. The procedure was completed. The patient tolerated the procedure well. There were no immediate complications. Initial and final counts of sponges and instruments were correct. Estimated blood loss was about 25 cc. The patient was extubated without difficulty and transferred to the recovery room with stable vital signs.
== END 2023-06-07 13:11 | disposition home or self-care (01) ==
PROVIDERS: PCP Nurse Practitioner Family; Visit Provider Surgery
PROC: (CPT 49505; principal; 2023-06-07 10:40)
DX: K40.90 Unilateral inguinal hernia, without obstruction or gangrene, not specified as recurrent (principal); N43.3 Hydrocele, unspecified; I44.0 Atrioventricular block, first degree; I11.0 Hypertensive heart disease with heart failure; I50.9 Heart failure, unspecified; E78.5 Hyperlipidemia, unspecified; F17.210 Nicotine dependence, cigarettes, uncomplicated; Z79.01 Long term (current) use of anticoagulants; Z79.899 Other long term (current) drug therapy; Z98.890 Other specified postprocedural states
CPT/HCPCS: 49505; 88302; C1781; J0665; J0690; J2704; J3010

== ENCOUNTER → 2023-06-07 08:23 | Outpatient (BNV) | payer OTHER, SELFPAY | PROVIDERS: PCP Nurse Practitioner Family; Visit Provider Surgery | DX: K40.90 Unilateral inguinal hernia, without obstruction or gangrene, not specified as recurrent (principal) | CPT/HCPCS: 49505 ==

== ENCOUNTER 2023-06-20 10:32 | Outpatient (AMB) | payer OTHER, SELFPAY ==
--- NOTE | 2023-06-20 10:33 | A.OFFVIS_ITS ---
Intake Vital Signs 06/20/23 10:40 Weight 156 lb BP 162/74 H Blood Pressure Location Rt brachial Position Sitting Pulse 77 Intake Visit Reasons: S/P RIH w/mesh Intake Note: This patient presents for a post-op assessment status post right inguinal hernia repair with mesh. Patient c/o; reports no complaints at this time pertaining to surgery. 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 He tolerated the procedure well. He currently denies significant complaints. [facility] Medical History Atrial flutter Right inguinal hernia Hyperlipidemia Congestive heart disease Hydrocele in adult HTN (hypertension) Surgical History Hx of right inguinal hernia repair (~06/07/23) Hx of cardiac catheterization Hx of pyloroplasty H/O colonoscopy Social History Housing: House Are you a primary health care attorney to a significant other at home: No Do you presently have visiting nurse or other home services: No Alcohol intake: former Patient Tobacco Use Status: Current everyday Tobacco user Tobacco use type: Cigarette Cigarettes Per Day: 10 Years Smoked: 50 e-Cigarette/Vaping Use: Never Used service: No Current occupational status: employed Cognitive needs: No Hearing needs: No Vision needs: Yes Review of Systems Const Denies chills and Denies fever(s) Card Denies chest pain, Denies dyspnea and Denies dyspnea on exertion Resp Denies cough, Denies dyspnea and Denies dyspnea on exertion GI Denies hematochezia and Denies change in bowel habits Denies hematuria and Denies difficulty urinating Musc Denies back pain and Denies limited range of motion Neuro Denies focal weakness and Denies convulsions Psych Denies depression and Denies mood swings Physical Exam Vital Signs: Last Vital Signs Pulse 77 06/20/23 10:40 BP 162/74 H 06/20/23 10:40 Const General: comfortable and no acute distress GI Other: Inguinal hernia repair site on the right is well healed, not infected, repair intact, some residual edema noted Assessment & Plan Assessment & Plan (1) Inguinal hernia of right side without obstruction or gangrene: Comment: Scrotal ultrasound will be ordered; patient will follow-up with [facility] on 04/14. Code(s): K40.90 - Unilateral inguinal hernia, without obstruction or gangrene, not specified as recurrent Plan: Status post right inguinal hernia repair with mesh. He is doing very well. His incision is well healed. The repair site is intact. He was advised to avoid lifting of more than 20 lb for at least 2 more weeks. I will see him in the office in about another month for a wound check. Coding Level of Care Code Global (32266) Diagnoses Inguinal hernia of right side without obstruction or gangrene K40.90
[2023-06-20 10:40] VITALS: BP 162/74; PULSE 77
== END 2023-06-20 10:52 | disposition home or self-care (01) ==
PROVIDERS: Visit Provider Surgery
DX: K40.90 Unilateral inguinal hernia, without obstruction or gangrene, not specified as recurrent (principal)
CPT/HCPCS: 99024

== ENCOUNTER → 2023-06-20 10:32 | Outpatient (BNVA) | payer OTHER, SELFPAY | PROVIDERS: Visit Provider Surgery | DX: Z48.815 Encounter for surgical aftercare following surgery on the digestive system (principal) | CPT/HCPCS: 99212 ==

== ENCOUNTER 2023-07-20 08:41 | Outpatient (AMB) | payer OTHER, SELFPAY ==
--- NOTE | 2023-07-20 08:43 | A.OFFVIS_ITS ---
Intake Vital Signs 07/20/23 08:56 Weight 165 lb BP 118/74 Blood Pressure Location Rt brachial Position Sitting Intake Visit Reasons: post right inguinal hernia repair (DOS: 06/07/23) Intake Note: This patient presents for a post-op follow-up assessment status post right inguinal hernia repair with mesh. Pt c/o; report occasional discomfort 6 inches away from surgical site. 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 He continues to do well. He denies any significant pain or discomfort. He denies any recurrent mass. [facility] Medical History Atrial flutter Right inguinal hernia Hyperlipidemia Congestive heart disease Hydrocele in adult HTN (hypertension) Surgical History Hx of right inguinal hernia repair (~06/07/23) Hx of cardiac catheterization Hx of pyloroplasty H/O colonoscopy Social History Housing: House Are you a primary care companion to a significant other at home: No Do you presently have visiting nurse or other home services: No Alcohol intake: former Patient Tobacco Use Status: Current everyday Tobacco user Tobacco use type: Cigarette Cigarettes Per Day: 10 Years Smoked: 50 e-Cigarette/Vaping Use: Never Used service: No Current occupational status: employed Cognitive needs: No Hearing needs: No Vision needs: Yes Review of Systems Const Denies chills and Denies fever(s) Card Denies chest pain, Denies dyspnea and Denies dyspnea on exertion Resp Denies cough, Denies dyspnea and Denies dyspnea on exertion GI Denies hematochezia and Denies change in bowel habits Denies hematuria and Denies difficulty urinating Musc Denies back pain and Denies limited range of motion Neuro Denies focal weakness and Denies convulsions Psych Denies depression and Denies mood swings Physical Exam Vital Signs: Last Vital Signs BP 118/74 07/20/23 08:56 Const General: comfortable and no acute distress Resp Effort & Inspection: normal respiratory effort GI Other: Right inguinal hernia repair site is well healed, not infected, no recurrent hernia, repair intact Assessment & Plan Assessment & Plan (1) Inguinal hernia of right side without obstruction or gangrene: Comment: Scrotal ultrasound will be ordered; patient will follow-up with [facility] on 04/14. Code(s): K40.90 - Unilateral inguinal hernia, without obstruction or gangrene, not specified as recurrent Plan: Status post repair of a right inguinal hernia. He continues to do very well. The repair site is intact. He is cleared to return to work without restrictions. He can follow up on a p.r.n. basis. Coding Level of Care Code Global (97984) Diagnoses Inguinal hernia of right side without obstruction or gangrene K40.90
[2023-07-20 08:56] VITALS: BP 118/74
== END 2023-07-20 09:04 | disposition home or self-care (01) ==
PROVIDERS: PCP Nurse Practitioner Family; Visit Provider Surgery
DX: K40.90 Unilateral inguinal hernia, without obstruction or gangrene, not specified as recurrent (principal)
CPT/HCPCS: 99024

== ENCOUNTER → 2023-07-20 08:41 | Outpatient (BNVA) | payer OTHER, SELFPAY | PROVIDERS: PCP Nurse Practitioner Family; Visit Provider Surgery | DX: Z48.815 Encounter for surgical aftercare following surgery on the digestive system (principal); Z98.890 Other specified postprocedural states | CPT/HCPCS: 99212 ==

== ENCOUNTER 2023-11-19 09:14 | Emergency (ER) | payer OTHER, SELFPAY ==
[2023-11-19] VITALS (9 sets, daily range): BP systolic 99–131; BP diastolic 55–84; PULSE 68–88; RESP 16–19; TEMP 36.5–37; O2SAT 94–99; BMI 22.1
--- NOTE | ~2023-11-19 | XR_ITS ---
EXAMINATION: XR CHEST CLINICAL INFORMATION: Reason for Exam sob COMPARISON: None TECHNIQUE: One view of the chest FINDINGS: Lines and tubes: EKG leads overlie the patient. Clear lungs. Blunting of the left costophrenic angle may reflect a trace pleural effusion. No pneumothorax. Normal cardiomediastinal silhouette. XR/XR chest 1V IMPRESSION: Blunting of the left costophrenic angle may reflect a trace pleural effusion. Clear lungs.
--- NOTE | 2023-11-19 09:19 | ECG_ITS ---
Test Reason : DIZZINESS Blood Pressure : / mmHG Vent. Rate : 074 BPM Atrial Rate : 108 BPM P-R Int : 000 ms QRS Dur : 080 ms QT Int : 398 ms P-R-T Axes : 000 071 076 degrees QTc Int : 441 ms Sinus tachycardia with 2nd degree A-V block (Mobitz I) with Premature supraventricular complexes Abnormal ECG When compared with ECG of 26-JUN-2022 08:01, Sinus rhythm is now with 2nd degree A-V block (Mobitz I) Referred By: Lg Churchill Electronically Signed By:NASIM BAKER
[2023-11-19 09:42] LABS: Basophils Percent Auto 0.2 % (0-2); Eosinophils Percent Auto 0.3 % (0-4); Hemoglobin 13.3 g/dl (14.0-18.0); Imm Gran Abs Auto 0.06 X10*3/uL (0.00-0.03); Imm Gran Pct Auto 0.5 % (0.0-0.4); Lymphocytes Absolute Auto 1.1 X10*3/uL (1.2-4.9); Lymphocytes Percent Auto 9.7 % (20-40); MANUAL DIFF FLAG NO; Mean Corpuscular Hemoglobin 31.9 pg (27.0-33.0); Mean Corpuscular Volume 91.1 fL (80.0-98.0); Mean Platelet Volume 9.6 fL (9.4-12.4); Monocytes Absolute Auto 1.2 X10*3/uL (0.1-1.2); Monocytes Percent Auto 10.7 % (2-11); Neutrophils Absolute Auto 9.1 x10*3/uL (2.0-8.3); Neutrophils Percent Auto 78.6 % (45-73); Platelet Count 162 X10*3/uL (160-400); Red Blood Count 4.17 X10*6/uL (4.60-5.80); Red Cell Distribution Width 12.8 % (11.0-16.0); White Blood Count 11.5 X10*3/uL (4.8-10.8)
[2023-11-19 09:49] LABS: INTERNATIONAL NORM RATIO 1.6 (0.9-1.1); Prothrombin Time 18.9 SEC (11.1-13.3)
[2023-11-19 09:56] LABS: Alanine Aminotransferase 12 U/L (0-40); Albumin Level 4.2 g/dL (3.5-5.0); Alkaline Phosphatase 60 U/L (39-117); Anion Gap 14 (12-20); Aspartate Amino Transferase 15 U/L (5-37); Bilirubin Total 1.7 mg/dL (0.0-1.0); Blood Urea Nitrogen 24 mg/dL (9-16); Calcium 8.7 mg/dL (8.4-10.2); Carbon Dioxide 24 mmol/L (22-29); Chloride 97 mmol/L (96-108); Creatinine Clr Calc Pharmacy 61.2; Estimated Glomerular Filt Rate > 60; Glucose Random 109 mg/dL (60-115); Magnesium 2.2 mg/dL (1.6-2.6); Potassium 4.4 mmol/L (3.3-5.1); Sodium 131 mmol/L (135-145)
--- NOTE | 2023-11-19 09:57 | ED_ITS ---
HPI - General Adult General Chief complaint: Dizziness Stated complaint: dizzy lightheaded constipated Time Seen by Provider: 11/19/23 09:30 Source: patient Mode of arrival: ambulatory Limitations: no limitations History of Present Illness ED Provider: DR. Pollard HPI narrative: A 72-year-old male history of congestive heart failure, patient stated that his trying to wean himself off the water pills last time he took it was 5 days ago came in for evaluation of being short of breath mostly with exertion, lower extremity bilateral edema, has erratic sleep pattern no PND, patient also feels foggy and lightheadedness intermittently for the past 5 days. Been having constipation last bowel movement was this morning and it was normal as per patient. Related Data Home Medications ?Medication ?Instructions ?Recorded ?Confirmed apixaban 5 mg tablet (Eliquis) 5 mg PO BID 03/19/23 06/07/23 atorvastatin 40 mg tablet 40 mg PO BEDTIME 03/19/23 06/07/23 hydralazine 25 mg tablet 75 mg PO BID 03/19/23 06/07/23 lisinopril 40 mg tablet 40 mg PO BEDTIME 03/19/23 06/07/23 tamsulosin 0.4 mg capsule 0.4 mg PO BEDTIME 04/25/23 06/07/23 Previous Rx's ?Medication ?Instructions ?Recorded clotrimazole-betamethasone 1 1 appl topical BID 4 weeks #45 04/25/23 %-0.05 % topical cream grams oxycodone-acetaminophen 5 mg-325 1 tab PO Q4-6H PRN pain #25 tabs 06/07/23 mg tablet (Percocet) Allergies Allergy/AdvReac Type Severity Reaction Status Date / Time No Known Allergies Allergy Verified 11/19/23 09:22 Review of Systems 2 Review of Systems: All other systems are reviewed and are negative Constitutional: Reports as per HPI and Reports no additional constitutional complaints Eyes: Reports as per HPI and Reports no additional eye complaints Reports system reviewed and no additional complaints, except as documented Cardiovascular: Reports as per HPI and Reports no additional cardiovascular complaints Respiratory: Reports as per HPI and Reports no additional respiratory complaints Gastrointestinal: Reports as per HPI and Reports no additional gastrointestinal complaints Genitourinary: Reports no additional female genitourinary complaints Musculoskeletal: Reports no additional musculoskeletal complaints Skin/Breast: Reports system reviewed and no additional complaints, except as docu Psychiatric: Reports no additional psychiatric complaints Endocrine: Reports no additional endocrine complaints Hematologic/Lymphatic: Reports no additional hematologic/lymphatic complaints Allergic/Immunologic: Reports no additional allergic/immunologic complaints Reports system reviewed and no additional complaints, except as documented and Reports Abnormal speech present [facility] Past Medical History Medical History Atrial flutter Right inguinal hernia Hyperlipidemia Congestive heart disease Hydrocele in adult HTN (hypertension) Surgical History Hx of right inguinal hernia repair (~06/07/23) Hx of cardiac catheterization Hx of pyloroplasty H/O colonoscopy Social History Social History Housing: House Are you a primary resident care manager to a significant other at home: No Do you presently have visiting nurse or other home services: No Alcohol intake: former Patient Tobacco Use Status: Current everyday Tobacco user Tobacco use type: Cigarette Cigarettes Per Day: 10 Years Smoked: 50 Smoked in Last 30 Days: Yes e-Cigarette/Vaping Use: Never Used Use of substances other than those prescribed or required for medical reasons: No Advance Directives: No Advance Directives Information Provided: No Do you have a plan to hurt others: No Plan service: No Current occupational status: employed Cognitive needs: No Hearing needs: No Vision needs: Yes Physical Exam ED Vital Signs: Vital Signs - 24 hr 11/19/23 09:20 11/19/23 09:58 11/19/23 10:22 Temperature 97.7 F 97.7 F Pulse Rate 75 71 68 Respiratory Rate 18 19 16 Blood Pressure 110/59 L 104/55 L 99/57 L Pulse Oximetry 96 95 94 Oxygen Delivery Method Room Air Room Air Room Air 11/19/23 10:24 11/19/23 13:04 11/19/23 13:42 Temperature 98.6 F Pulse Rate 70 75 Respiratory Rate 16 Blood Pressure 99/57 L 112/60 117/71 Pulse Oximetry 95 Oxygen Delivery Method Room Air 11/19/23 13:43 11/19/23 13:46 Temperature Pulse Rate 76 88 Respiratory Rate Blood Pressure 124/71 131/84 Pulse Oximetry Oxygen Delivery Method BMI result Body Mass Index 22.1 Vital signs have been reviewed and appear to be correct. Blood pressure elevated. Heart rate normal. Respiratory rate normal. Temperature normal. Oxygen saturation normal. Appearance: Alert. Oriented X3. No acute distress. Head: Normal external exam. Normocephalic. Atraumatic. No Russo signs noted. No raccoon eyes noted Eyes: PERRLA. EOMI. Conjunctiva and sclera normal. Eyelids normal. ENT: TM's Normal. Pharynx normal. Uvula midline. Moist mucous membranes. No trismus noted. No drooling noted. No muffled voice noted. Neck: Normal inspection. Neck supple. FROM. No adenopathy. Thyroid Normal. No meningeal signs. No neck mass noted. CVS: Normal heart rate and rhythm. Heart sound normal. No murmurs noted. Pulses normal throughout. Respiratory: No respiratory distress. Painless inspiration. Breath sounds normal. No wheezes/rales/rhonchi noted. Chest nontender. No accessory muscle usage noted or decreased air movement noted. Abdomen: Soft and nontender. Bowel sounds normal in all 4 quadrants. No distention noted. No organomegaly noted. No visible injury noted. Back: No CVA tenderness. Full range of motion noted. Skin: Skin warm and dry. Normal skin color. Normal skin turgor. No rashes/lesions/lacerations noted. Extremities: +2 lower extremity edema. Extremities exhibit normal range of motion. Extremities nontender. Neuro: Oriented X 3. Cranial nerve exam: II-XII are grossly intact No motor deficit. No sensory deficit. Reflexes normal. Course Reevaluation(s) Reevaluation #1: A 72-year-old male came in with symptoms of feeling dizziness and lightheadedness for the past 5 days, patient with history of congestive heart failure. Patient do not appear to be in acute heart failure today. Patient feels improvement while in the emergency department no lightheadedness, no near syncope. Patient would like to be discharged home. Time: 13:27 Reevaluation #2: Patient declined hospitalization and he wanted to be discharged home, Carmen from hospitalist service at the bedside to admit the patient. Patient adamantly would like to be discharged home and do his follow-up as an outpatient. Time: 14:14 Medications Administered Discontinued Medications Generic Name Dose Route Start Last Admin Trade Name Freq PRN Reason Stop Dose Admin Furosemide 40 mg 11/19/23 09:55 11/19/23 10:24 Furosemide 40 Mg/4 Ml Vial IVPUSH 11/19/23 09:56 20 mg ONCE ONE Administration Protocol Medical Decision Making Differential Diagnosis Differential Diagnoses: The differential diagnosis associated with the presentation includes (CHF, pneumonia, pneumothorax, pleural effusion, electrolyte derangement, dehydration, severe anemia.) Admission/Observation Consideration of admission/observation: Escalation of care including admission/observation considered Consult Healthcare Provider Management of the patient was discussed with: Hospitalist (Dr. Mendez) Lab Data MDM Lab Attestation statement: I reviewed the patient's lab results. 11/19/23 09:35 11/19/23 09:35 Labs: Lab Results 11/19/23 11/19/23 Range/Units 09:35 10:30 WBC 11.5 H (4.8-10.8) X10*3/uL RBC 4.17 L (4.60-5.80) X10*6/uL Hgb 13.3 L (14.0-18.0) g/dl Hct 38.0 L (42.0-52.0) % MCV 91.1 (80.0-98.0) fL MCH 31.9 (27.0-33.0) pg MCHC 35.0 (31.0-36.0) g/dl RDW 12.8 (11.0-16.0) % Plt Count 162 D (160-400) X10*3/uL MPV 9.6 (9.4-12.4) fL Immature Gran % (Auto) 0.5 H (0.0-0.4) % Neut % (Auto) 78.6 H (45-73) % Lymph % (Auto) 9.7 L (20-40) % [place] % (Auto) 10.7 (2-11) % Eos % (Auto) 0.3 (0-4) % Baso % (Auto) 0.2 (0-2) % Lymph # (Auto) 1.1 L (1.2-4.9) X10*3/uL [place] # (Auto) 1.2 (0.1-1.2) X10*3/uL Eos # (Auto) 0.0 (0.0-0.4) X10*3/uL Baso # (Auto) 0.0 (0.0-0.2) X10*3/uL Abs Immat Gran (auto) 0.06 H (0.00-0.03) X10*3/uL Absolute Neuts (auto) 9.1 H (2.0-8.3) x10*3/uL Absolute Nucleated RBC 0.000 (0.0-0.012) X10*3/uL Nucleated RBC % (auto) 0.0 (0.0-0.2) /100WBC PT 18.9 H (11.1-13.3) SEC INR 1.6 H (0.9-1.1) Sodium 131 L (135-145) mmol/L Potassium 4.4 (3.3-5.1) mmol/L Chloride 97 (96-108) mmol/L Carbon Dioxide 24 (22-29) mmol/L Anion Gap 14 (12-20) BUN 24 H (9-16) mg/dL Creatinine 1.08 (0.5-1.4) mg/dL Estim Creat Clear Calc 61.2 Estimated GFR > 60 Random Glucose 109 (60-115) mg/dL Calcium 8.7 (8.4-10.2) mg/dL Magnesium 2.2 (1.6-2.6) mg/dL Total Bilirubin 1.7 H (0.0-1.0) mg/dL AST 15 (5-37) U/L ALT 12 (0-40) U/L Alkaline Phosphatase 60 (39-117) U/L Troponin I High Sens 10.9 (<3.5-35.0) ng/L B-Natriuretic Peptide 12 (<100) pg/mL Total Protein 7.0 (6.5-8.0) g/dL Albumin 4.2 (3.5-5.0) g/dL Independent Interpretation I performed an independent interpretation of an: EKG and Plain X-Ray (Chest:Blunting of the left costophrenic angle may reflect a trace pleural effusion. Clear lungs. ) Radiology Impression Discussion of test interpretation with radiology: I have reviewed the radiologist's reading. Discharge Plan Discharge Clinical Impression: Dizziness, Mobitz type 1 second degree AV block Patient Disposition: Home, Self-Care Instructions: Dizziness (ED), Heart Block (ED) Prescriptions: No Action oxycodone-acetaminophen [Percocet] 5-325 mg tablet 1 tab PO Q4-6H PRN (Reason: pain) Qty: 25 0RF Rx Instructions: Partial Fill upon patient request. tamsulosin 0.4 mg capsule 0.4 mg PO BEDTIME clotrimazole-betamethasone 1-0.05 % cream 1 appl topical BID 28 Days Qty: 45 0RF lisinopril 40 mg tablet 40 mg PO BEDTIME Eliquis 5 mg tablet 5 mg PO BID atorvastatin 40 mg tablet 40 mg PO BEDTIME hydralazine 25 mg tablet 75 mg PO BID Referrals: Jerrell Samaniego, TRAVEL OCCUPATIONAL THERAPIST-BC [Primary Care Provider] - Print Language: Faroese
--- NOTE | 2023-11-19 09:57 | PC.NURSE ---
Pt. on cardiac monitor technician.
[2023-11-19 10:03] LABS: Troponin-I High Sensitivity 10.9 ng/L (<3.5-35.0)
--- NOTE | 2023-11-19 10:23 | PC.NURSE ---
Notified Kenny Pollard MD of BP 99/57 prior to 40mg IVP Lasix administration. verbally states to administer only 20mg at this time and monitor BP. Hold other 20mg in case we have to give it afterwards.
[2023-11-19] MEDS: Furosemide 40 MG/4 ML VIAL IVPUSH (10:24)
[2023-11-19 10:57] LABS: B Type Natriuretic Peptide 12 pg/mL (<100)
--- NOTE | 2023-11-19 15:09 | PHA.MEDREC ---
Pharmacy Consult ? Medication Reconciliation Pharmacy has completed the medication reconciliation. spoke with patient to confirm medications. He states he took Eliquis and hydralazine today. Patient reports he also takes furosemide sporadically and is not adherent to taking it. 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 He is now supposed to take once daily but confirmed he does not take it every day and will go weeks without taking it.
== END 2023-11-19 16:21 | disposition home or self-care (01) ==
PROVIDERS: Physician Assistant; Emergency Provider Emergency Medicine; PCP Nurse Practitioner Family
DX: R42 Dizziness and giddiness (principal); I44.1 Atrioventricular block, second degree; R06.02 Shortness of breath; I11.0 Hypertensive heart disease with heart failure; I50.9 Heart failure, unspecified; E78.5 Hyperlipidemia, unspecified
CPT/HCPCS: 36415; 71045; 80053; 83735; 83880; 84484; 85025; 85610; 93005; 96374; 99284; J1940

== ENCOUNTER → 2023-11-19 09:19 | Outpatient (BNV) | payer OTHER, SELFPAY | PROVIDERS: Emergency Provider Emergency Medicine; PCP Nurse Practitioner Family; Visit Provider Internal Medicine | DX: R42 Dizziness and giddiness (principal); R00.0 Tachycardia, unspecified; R94.31 Abnormal electrocardiogram [ECG] [EKG] | CPT/HCPCS: 93010 ==

== ENCOUNTER 2023-12-15 13:18 | Outpatient (AMB) | payer OTHER, SELFPAY ==
[2023-12-15 14:32] VITALS: BP 120/62; PULSE 83; BMI 22.8
--- NOTE | 2023-12-15 14:32 | MHC.OFFVIS ---
Vital Signs 12/15/23 14:32 Height 5 ft 9 in Weight 154 lb 5.177 oz BMI 22.8 BP 120/62 Blood Pressure Location Lt brachial Position Sitting Pulse 83 Pulse Source Pulse Oximeter Intake Visit Reasons: ER-Follow up-Light headed,Vascular Problems Allergies No Known Allergies Allergy (Verified 11/19/23 09:22) Medication List - Last Reconciled 12/15/23 by Rach Carcamo NP apixaban (Eliquis) 5 mg PO BID atorvastatin 40 mg PO BEDTIME furosemide 20 mg PO DAILY PRN hydralazine 75 mg PO BID lisinopril 40 mg PO BEDTIME tamsulosin 0.4 mg PO DAILY HPI Comments Details: 73-year-old male presents today as a new patient. He was seeing [facility] cardiology but his insurance changed.He was in the emergency department on 11/19/2023 for lightheadedness. He reports he felt like he wasn't getting enough blood flow to the brain . Since then it had not reoccured. He has had no syncope, bleeding, swelling, or palpitations. He reports he does get some chest tightness at work. It changes the side it is on. 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 He has a history of atrial flutter and on eliquis and Congestive heart failure. He does not weight himself but he does limit his salt. [facility] Medical History Atrial flutter Right inguinal hernia Hyperlipidemia Congestive heart disease Hydrocele in adult HTN (hypertension) Surgical History Hx of right inguinal hernia repair (~06/07/23) Hx of cardiac catheterization Hx of pyloroplasty H/O colonoscopy Social History Housing: House Are you a primary childcare aide to a significant other at home: No Do you presently have visiting nurse or other home services: No Alcohol intake: former Patient Tobacco Use Status: Current everyday Tobacco user Tobacco use type: Cigarette Cigarettes Per Day: 10 Years Smoked: 50 e-Cigarette/Vaping Use: Never Used service: No Current occupational status: employed Cognitive needs: No Hearing needs: No Vision needs: Yes Review of Systems Const Denies weakness ENT Denies dizziness Card Denies chest pain, Denies chest pain with activity, Denies syncope, Denies rapid heart rate, Denies pedal edema, Denies edema, Denies leg edema, Denies lightheadedness, Denies palpitations, Denies dyspnea, Denies dyspnea on exertion and Denies orthopnea Resp Denies cough, Denies dyspnea and Denies dyspnea on exertion GI Denies hematochezia and Denies change in stool character Musc Denies abnormal gait, Denies muscle cramps, Denies muscle weakness, Denies numbness, Denies radiating pain into limb and Denies tingling Neuro Denies abnormal gait, Denies dizziness, Denies syncope, Denies numbness, Denies tingling and Denies weakness Endo Denies palpitations Physical Exam Vital Signs: Last Vital Signs Pulse 83 12/15/23 14:32 BP 120/62 12/15/23 14:32 BMI result Body Mass Index 22.8 Const General: healthy appearing and no acute distress Orientation/consciousness: patient oriented x3 HEENT Head: Yes normal to inspection Eyes General: appearance normal, both eyes and all related structures Neck Neck: Yes normal visual inspection Chest Chest palpation & inspection: normal inspection of the chest Resp Effort & Inspection: normal respiratory effort Auscultation: clear to auscultation bilaterally Cardio Jugular venous distension: no JVD Palpation: normal PMI Rate: regular rate Rhythm: regular rhythm Heart sounds: S1 normal heart sound present, S2 normal heart sound present, no click, no gallops, no murmurs and no rubs GI Inspection: Yes normal to inspection Palpation (GI): Soft to palpation Skin General skin exam: no rashes or lesions noted Neuro General: patient oriented x3 Extrem General: Yes normal to inspection Psych Appearance: grossly normal Assessment & Plan Assessment & Plan (1) Congestive heart disease: Comment: was followed by [facility] Code(s): I50.9 - Heart failure, unspecified Category: Medical Plan: Currently appears not in fluid overload. Reviewed signs and symptoms of overload. Is currently on lasix 20mg daily PRN. Avoiding salt and daily weight advised. (2) Atrial flutter: Comment: taking eliquis-follows w/ [facility] Code(s): I48.92 - Unspecified atrial flutter Category: Medical Plan: Currently in sinus rhythm by auscultation. Will get holter montior and echocardiogram to assess rhythm, rate, and structure changes. (3) Dizziness: Code(s): R42 - Dizziness and giddiness Category: Medical Plan: Will get holter and echcoardiogram to assess for any reason patient may have had dizziness episode such as structural change or arrhythmias, Advised to change position slowly and ensure adequate intake. Plan Will get [facility] records. Orders: Orders ECG holter monitor 48 hour 12/15/23 I48.92 - Unspecified atrial flutter CA echo transthoracic complete 12/15/23 I48.92 - Unspecified atrial flutter, I50.9 - Heart failure, unspecified Coding Level of Care Code New Pt Level 4 (07611) Diagnoses Congestive heart disease I50.9 Atrial flutter I48.92 Dizziness R42
== END 2023-12-15 15:03 | disposition home or self-care (01) ==
PROVIDERS: PCP Nurse Practitioner Family; Visit Provider Nurse Practitioner
DX: I50.9 Heart failure, unspecified (principal); I48.92 Unspecified atrial flutter; R42 Dizziness and giddiness
CPT/HCPCS: 99204; 99214

== ENCOUNTER → 2023-12-15 13:18 | Outpatient (BNVA) | payer OTHER, SELFPAY | PROVIDERS: PCP Nurse Practitioner Family; Visit Provider Nurse Practitioner | DX: R42 Dizziness and giddiness (principal); I48.92 Unspecified atrial flutter; I50.9 Heart failure, unspecified; Z79.01 Long term (current) use of anticoagulants | CPT/HCPCS: 99202 ==

== ENCOUNTER → 2024-01-12 08:38 | Outpatient (REF) | payer OTHER, SELFPAY ==
--- NOTE | 2024-01-12 08:41 | CA_ITS ---
Transthoracic Echocardiogram Patient (Last, First, Middle): Bertrand Murdock, Gender: Male Date of : 1950 Age: 73 Procedure Date: 01/12/2024 Procedure Type: Transthoracic Echocardiogram Location: OP Height: 177.8 cm Weight: 70.76 kg BSA: 1.88 m2 Heart Rate: bpm BP: 130 / 80 mmHg Indirect Sales Exec: SUKH Referring MD: Rach Carcamo NP Symptoms: I50.9 - Heart failure, unspecified Study Quality: Adequate Conclusions: - 1. Normal LV ejection fraction of 60 65% with mild LVH 2. No significant abnormality of cardiac valvular Dopplers 3. Normal RV systolic pressure 4. No gross pericardial effusion Findings Left Ventricle Normal left ventricular size and systolic function. There is mildly increased left ventricular wall thickness. The visually estimated ejection fraction is between 60-65%. Spectral Doppler is indicative of a normal filling pattern. Right Ventricle Normal right ventricular cavity size and systolic function. Atria The left atrium is normal in size. Interatrial shunt cannot be excluded. The right atrium is normal in size. Aortic Valve There is mild calcification of the aortic valve. There is no aortic valve stenosis. There is no aortic valve regurgitation. Mitral Valve Normal mitral valve structure and function. There is trace mitral valve regurgitation. There is no mitral valve stenosis. Pulmonic Valve The pulmonic valve was not well visualized. Tricuspid Valve Likely normal tricuspid valve structure and function. There is trace tricuspid valve regurgitation. The right ventricular systolic pressure is normal. The right ventricular systolic pressure is 14 mmHg. Normal right atrial pressure. There is no evidence of pulmonary hypertension. Great Vessels The pulmonary artery was not well visualized. There is no dilatation of the ascending aorta measuring 2.90 cm. Small plaque is seen in the sino tubular ridge. Venous The inferior vena cava is normal in size and collapses greater than 50% with inspiration. Pericardium/Pleural There is no evidence of pericardial effusion. Prior Study Comparison No prior study available for comparison. Measurements 2D Linear Measurements IVSd: 1.38 0.6-0.9/0.6-1.0 cm LVIDd: 3.82 3.9-5.3/4.2-5.9 cm LVIDd Index: 2.03 2.4-3.2/2.2-3.1 cm/m2 LVIDs: 2.45 2.0-3.6 cm LVPWd: 1.16 0.7-1.1 cm LA Diam: 3.20 2.7-3.8/3.0-4.0 cm LAIDs Index: 1.70 1.5-2.3 cm/m2 LV Mass: 209.58 67-162/88-224 g LV Mass Index: 111.48 43-95/49-115 g/m2 LVOT Diam: 2.20 3.0+(-)1.3 cm 2D Systolic Function EF 4C: 63.60 >55% EF 2C: 65.30 >55% EF BiP: 63.60 >55% Mitral Valve MV Pk E: 1.02 MV PK A: 0.66 MV Decel Time: 176.00 E/A: 1.50 E'Lateral: 12.20 E'Medial: 8.56 E/E' Med: 11.90 E/E' Lat: 8.40 PHT: 52.00 MVA PHT: 4.23 Decel Knott: 6.26 Aortic Valve AoV Pk Pierce: 1.34 AoV Mn Pierce: 0.88 AoV VTI: 0.28 AoV Pk Grad: 7.00 Aov Mn Grad: 3.00 TAMMY Cont.VTI: 3.42 LVOT LVOT Pk Pierce: 1.08 LVOT Mn Pierce: 0.74 LVOT VTI: 0.25 LVOT Pk Grad: 5.00 LVOT Mn Grad: 2.00 LVOT Diam: 2.20 LVOT Area: 3.80 Diastolic Function MV Pk E: 1.02 MV Pk A: 0.66 E/A: 1.50 E'Medial: 8.56 E/E' Med: 11.90 E' Laterial: 12.20 E/E' Lat: 8.40 Right Ventricle TAPSE (mm): 27.40 TVS' Pierce: 11.80 Tricuspid Valve TR Pk Pierce: 1.64 TR Pk Grad: 11.00 RA Press: 3.00 RVSP: 14.00 Great Vessels Aorta Sinus of Valsalva: 3.58 2.0-3.[address] [place]: 2.45 1.7-3.4 cm Ao Asc: 2.90 2.1-3.4 cm Updated in Other Vendor System with Status of Final Bipin Minaya MD electronically signed on 01/12/2024 12:09:19 PM with status of Final
--- NOTE | 2024-01-12 08:41 | HM_ITS ---
Conclusion: 1. Patient was monitored for total period of 2 days 2. Baseline was normal sinus rhythm with average heart of 83 beats per minute 3. Frequent PACs noted with total burden of 7.2% with for short SVE events, longest lasting 9 beats and the fastest at 120 beats per minute 4. No significant pauses noted 5. Patient reported 1 event correlating with sinus rhythm MTDD
== END ==
LOC: HO.CARD 08:38
PROVIDERS: PCP Nurse Practitioner Family; Visit Provider Nurse Practitioner
DX: I50.9 Heart failure, unspecified (principal); I48.92 Unspecified atrial flutter
CPT/HCPCS: 93225; 93306

== ENCOUNTER → 2024-01-12 08:41 | Outpatient (BNV) | payer OTHER, SELFPAY | PROVIDERS: PCP Nurse Practitioner Family; Visit Provider Internal Medicine Cardiovascular Disease | DX: I49.3 Ventricular premature depolarization (principal) | CPT/HCPCS: 93227; 93306 ==

== ENCOUNTER 2024-02-21 08:48 | Outpatient (AMB) | payer OTHER, SELFPAY ==
--- NOTE | 2024-02-21 10:37 | MHC.OFFVIS ---
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 He states it is because of insurance issues. During the initial visit, he was seen by the nurse practitioner. Records were reviewed. 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 It appears he has taken amiodarone in the past but not recently. History of cardiomyopathy but recovered LVEF. Overall, he states that he generally feels okay. Random chest pains but nonexertional. He has undergone a diagnostic cardiac catheterization 2020 but no significant disease at that time. [facility] Medical History (Updated 02/21/24 @ 11:50 by Arun Garnett MD) BPH (benign prostatic hyperplasia) Atrial flutter Right inguinal hernia Hyperlipidemia Congestive heart disease Hydrocele in adult HTN (hypertension) Surgical History Hx of right inguinal hernia repair (~06/07/23) Hx of cardiac catheterization Hx of pyloroplasty H/O colonoscopy Family History (Updated 02/21/24 @ 10:57 by Arun Garnett MD) Father Heart problem Social History Housing: House Are you a primary animal care specialist to a significant other at home: No Do you presently have visiting nurse or other home services: No Alcohol intake: former Patient Tobacco Use Status: Current everyday Tobacco user Tobacco use type: Cigarette Cigarettes Per Day: 10 Years Smoked: 50 e-Cigarette/Vaping Use: Never Used service: No Current occupational status: employed Cognitive needs: No Hearing needs: No Vision needs: Yes Review of Systems Const Denies chills, Denies fatigue, Denies fever(s), Denies weight gain and Denies weight loss ENT Denies dizziness Card Reports chest pain, Denies leg edema, Denies lightheadedness, Denies palpitations, Denies dyspnea on exertion, Denies orthopnea and Denies other Resp Denies cough and Denies dyspnea on exertion GI Denies hematochezia and Denies change in stool character Musc Denies abnormal gait, Denies muscle weakness, Denies numbness, Denies radiating pain into limb and Denies tingling Neuro Denies abnormal gait, Denies dizziness, Denies numbness and Denies tingling Endo Denies fatigue and Denies palpitations Physical Exam Vital Signs: Last Vital Signs Pulse 74 02/21/24 10:38 BP 114/54 L 02/21/24 10:38 BMI result Body Mass Index 23.5 Const General: comfortable and no acute distress Orientation/consciousness: patient oriented x3 HEENT Other: Unremarkable Head: Yes normal to inspection Neck Neck: Yes normal visual inspection Chest Chest palpation & inspection: normal inspection of the chest Resp Auscultation: diminished lung sounds Cardio Palpation: normal PMI Heart sounds: S1 normal heart sound present, S2 normal heart sound present, no gallops, Murmur heart sound present systolic II/ and at the apex and no rubs GI Palpation (GI): Soft to palpation Back/Spine/Pelvis Other: unremarkable Skin General skin exam: no rashes or lesions noted Neuro General: patient oriented x3 Extrem General: Yes normal to inspection Psych Mental Status: mental status grossly normal Assessment & Plan Assessment & Plan (1) Atrial flutter: Comment: taking eliquis-follows w/ [facility] Code(s): I48.92 - Unspecified atrial flutter Category: Medical Plan: In the recent Holter, underlying rhythm is sinus with an average rate of 83/Min. Frequent PACs. He is not on any rate controlling drugs. There is a history of Mobitz type 1 block mentioned in prior notes. Otherwise, continue anticoagulation. (2) NICM (nonischemic cardiomyopathy): Code(s): I42.8 - Other cardiomyopathies Category: Medical Plan: Per [facility] echocardiogram, LVEF 35-40% in 2020. Most recently, 60-65%. Cardiac catheterization 2020-minimal irregularities in left main, LAD, circumflex and RCA. Mid RCA with 30% stenosis. Otherwise unremarkable. Continue statins. 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 Could be all from his smoking. Otherwise, continue statins. Check lipids. (4) Smoking: Code(s): F17.200 - Nicotine dependence, unspecified, uncomplicated Category: Social Hx Plan: Strongly advised to quit. Orders: Orders Lipid Panel Today E78.5 - Hyperlipidemia, unspecified LDL Cholesterol Direct Today E78.2 - Mixed hyperlipidemia Coding Level of Care Code Est Pt Level 4 (86908) Diagnoses Atrial flutter I48.92 NICM (nonischemic cardiomyopathy) I42.8 Atherosclerotic cardiovascular disease I25.10 Smoking F17.200
[2024-02-21 10:38] VITALS: BP 114/54; PULSE 74; BMI 23.5
== END 2024-02-21 11:07 | disposition home or self-care (01) ==
PROVIDERS: PCP Nurse Practitioner Family; Visit Provider Internal Medicine
DX: I48.92 Unspecified atrial flutter (principal); I42.8 Other cardiomyopathies; I25.10 Atherosclerotic heart disease of native coronary artery without angina pectoris; F17.200 Nicotine dependence, unspecified, uncomplicated
CPT/HCPCS: 99214

== ENCOUNTER → 2024-02-21 08:48 | Outpatient (BNVA) | payer OTHER, SELFPAY | PROVIDERS: PCP Nurse Practitioner Family; Visit Provider Internal Medicine | DX: I48.92 Unspecified atrial flutter (principal); I42.8 Other cardiomyopathies; I25.10 Atherosclerotic heart disease of native coronary artery without angina pectoris; F17.210 Nicotine dependence, cigarettes, uncomplicated | CPT/HCPCS: 99212 ==

== ENCOUNTER 2024-08-06 09:25 | Outpatient (AMB) | payer MEDICARE, SELFPAY ==
[2024-08-06 09:42] VITALS: BP 118/60; PULSE 62; BMI 25.8
--- NOTE | 2024-08-06 09:42 | A.OFFVIS_ITS ---
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 Previously, seen at [facility], but switched due to insurance issues. 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 He has taken amiodarone in the past but not recently. History of cardiomyopathy, but recovered LVEF. He has undergone a diagnostic cardiac catheterization 2020 but no significant disease at that time. Since last seen, he states he generally feels well. No clear-cut cardiac complaints. He states he takes medications as recommended. Unfortunately, still smokes. [facility] Medical History (Updated 08/06/24 @ 10:20 by Arun Garnett MD) BPH (benign prostatic hyperplasia) Atrial flutter Right inguinal hernia Hyperlipidemia Congestive heart disease Hydrocele in adult HTN (hypertension) Surgical History Hx of right inguinal hernia repair (~06/07/23) Hx of cardiac catheterization Hx of pyloroplasty H/O colonoscopy Family History Father Heart problem Social History Housing: House Are you a primary healthcare corporate account director to a significant other at home: No Do you presently have visiting nurse or other home services: No Alcohol intake: former Patient Tobacco Use Status: Current everyday Tobacco user Tobacco use type: Cigarette Cigarettes Per Day: 10 Years Smoked: 50 e-Cigarette/Vaping Use: Never Used service: No Current occupational status: employed Cognitive needs: No Hearing needs: No Vision needs: Yes Review of Systems Const Denies chills, Denies fatigue, Denies fever(s), Denies weight gain and Denies weight loss ENT Denies dizziness Card Denies chest pain, Denies leg edema, Denies lightheadedness, Denies palpitations, Denies dyspnea on exertion, Denies orthopnea and Denies other Resp Denies cough and Denies dyspnea on exertion GI Denies hematochezia and Denies change in stool character Musc Denies abnormal gait, Denies muscle weakness, Denies numbness, Denies radiating pain into limb and Denies tingling Neuro Denies abnormal gait, Denies dizziness, Denies numbness and Denies tingling Endo Denies fatigue and Denies palpitations Physical Exam Vital Signs: Last Vital Signs Pulse 62 08/06/24 09:42 BP 118/60 08/06/24 09:42 BMI result Body Mass Index 25.8 Const General: comfortable and no acute distress Orientation/consciousness: patient oriented x3 HEENT Other: Unremarkable Head: Yes normal to inspection Neck Neck: Yes normal visual inspection Chest Chest palpation & inspection: normal inspection of the chest Resp Auscultation: diminished lung sounds Cardio Palpation: normal PMI Heart sounds: S1 normal heart sound present, S2 normal heart sound present, no gallops, no murmurs and no rubs GI Palpation (GI): Soft to palpation Back/Spine/Pelvis Other: unremarkable Skin General skin exam: no rashes or lesions noted Neuro General: patient oriented x3 Extrem General: Yes normal to inspection Psych Mental Status: mental status grossly normal Assessment & Plan Assessment & Plan (1) Atrial flutter: Code(s): I48.92 - Unspecified atrial flutter Category: Medical Plan: In the Holter, underlying rhythm is sinus with an average rate of 83/Min. Frequent PACs. He is not on any rate controlling drugs. There is a history of Mobitz type 1 block mentioned in prior notes. He states he has cut back a lot on caffeine and that is helping him a lot. Otherwise, continue anticoagulation. (2) NICM (nonischemic cardiomyopathy): Code(s): I42.8 - Other cardiomyopathies Category: Medical Plan: Per [facility] echocardiogram, LVEF 35-40% in 2021. Most recently, 60-65%. Cardiac catheterization 2020-minimal irregularities in left main, LAD, circumflex and RCA. Mid RCA with 30% stenosis. Otherwise unremarkable. Continue statins. 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 Could be all from his smoking. Otherwise, continue statins. Advised to do blood work. (4) Smoking: Code(s): F17.200 - Nicotine dependence, unspecified, uncomplicated Category: Social Hx Plan: He smokes about 15 cig/day. Strongly advised to quit. Counseled. Orders: Orders Basic Metabolic Panel Today I42.8 - Other cardiomyopathies Complete Blood Count no Diff Today I42.8 - Other cardiomyopathies Liver Panel Today I25.10 - Atherosclerotic heart disease of [place] coronary artery without angina pectoris Coding Level of Care Code Est Pt Level 4 (59181) Complex EM visit Add On G2211 Diagnoses Atrial flutter I48.92 NICM (nonischemic cardiomyopathy) I42.8 Atherosclerotic cardiovascular disease I25.10 Smoking F17.200
== END 2024-08-06 10:08 | disposition home or self-care (01) ==
LOC: HO.HCS 09:26
PROVIDERS: PCP Nurse Practitioner Family; Visit Provider Internal Medicine
DX: I48.92 Unspecified atrial flutter (principal); I42.8 Other cardiomyopathies; I25.10 Atherosclerotic heart disease of native coronary artery without angina pectoris; F17.200 Nicotine dependence, unspecified, uncomplicated
CPT/HCPCS: 99214; G2211

== ENCOUNTER 2024-08-06 09:25 | Outpatient (REF) | payer MEDICARE, SELFPAY ==
[2024-08-06 11:23] LABS: Hematocrit 42.2 % (42.0-52.0); Hemoglobin 14.2 g/dl (14.0-18.0); Mean Corpuscular HGB Conc 33.6 g/dl (31.0-36.0); Mean Corpuscular Hemoglobin 32.6 pg (27.0-33.0); Mean Corpuscular Volume 96.8 fL (80.0-98.0); Mean Platelet Volume 9.8 fL (9.4-12.4); Platelet Count 196 X10*3/uL (160-400); Red Blood Count 4.36 X10*6/uL (4.60-5.80); Red Cell Distribution Width 12.1 % (11.0-16.0); White Blood Count 8.5 X10*3/uL (4.8-10.8)
[2024-08-06 11:55] LABS: Alanine Aminotransferase 20 U/L (0-40); Albumin Level 4.2 g/dL (3.5-5.0); Anion Gap 11 (12-20); Aspartate Amino Transferase 22 U/L (5-37); Bilirubin Direct 0.2 mg/dL (0.0-0.5); Bilirubin Total 0.7 mg/dL (0.0-1.0); Blood Urea Nitrogen 16 mg/dL (9-16); Calcium 9.1 mg/dL (8.4-10.2); Carbon Dioxide 30 mmol/L (22-29); Chloride 104 mmol/L (96-108); Cholesterol 122 mg/dL (<200); Estimated Glomerular Filt Rate > 60; Glucose Random 95 mg/dL (60-115); HDL Cholesterol 47 mg/dL (>40); Potassium 4.8 mmol/L (3.3-5.1); Sodium 140 mmol/L (135-145); Total Protein 6.9 g/dL (6.5-8.0)
[2024-08-06 12:23] LABS: Alkaline Phosphatase 70 U/L (39-117); LDL Cholesterol Calculated 62 mg/dL (<100); Triglycerides 69 mg/dL (<150)
[2024-08-07 08:43] LABS: LDL Cholesterol Direct 60 mg/dL (<100)
== END 2024-08-06 09:26 | disposition home or self-care (01) ==
LOC: HO.LAB 09:25
PROVIDERS: PCP Nurse Practitioner Family; Visit Provider Internal Medicine
DX: I25.10 Atherosclerotic heart disease of native coronary artery without angina pectoris (principal); E78.2 Mixed hyperlipidemia; E78.5 Hyperlipidemia, unspecified; I42.8 Other cardiomyopathies; F17.200 Nicotine dependence, unspecified, uncomplicated; I48.92 Unspecified atrial flutter
CPT/HCPCS: 36415; 80048; 80061; 80076; 83721; 85027; 99212

== ENCOUNTER 2025-02-07 09:43 | Outpatient (AMB) | payer MEDICARE, SELFPAY ==
[2025-02-07 09:49] VITALS: BP 108/60; PULSE 78; BMI 26.4
--- NOTE | 2025-02-07 09:49 | A.OFFVIS_ITS ---
Vital Signs 02/07/25 09:49 Height 5 ft 9 in Weight 178 lb 9.191 oz BMI 26.4 BP 108/60 Blood Pressure Location Lt brachial Position Sitting Pulse 78 Pulse Source Monitor Intake Visit Reasons: 6m follow up Allergies No Known Allergies Allergy (Verified 11/19/23 09:22) Medication List - Last Reconciled 02/07/25 by Arun Garnett MD apixaban 5 mg PO BID atorvastatin 40 mg PO BEDTIME furosemide 20 mg PO DAILY PRN hydralazine 25 mg PO BID 90 days hydralazine 50 mg PO BID 90 days lisinopril 40 mg PO BEDTIME tamsulosin 0.4 mg PO DAILY HPI Comments Details: Bertrand returns for follow-up. Previously, seen at [facility], but switched due to insurance issues. 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 He has taken amiodarone in the past but not recently. History of cardiomyopathy, but recovered LVEF. He has undergone a diagnostic cardiac catheterization 2020 but no significant disease at that time. He states, he is generally feeling okay and does not have any angina. He gets dizzy intermittently. Today's blood pressure is lowish and he is wondering if that is the reason. Otherwise, compliant with medications but he still smokes. In fact he states he is smoking more now than before. [facility] Medical History (Updated 02/07/25 @ 10:10 by Arun Garnett MD) BPH (benign prostatic hyperplasia) Atrial flutter Right inguinal hernia Hyperlipidemia Congestive heart disease Hydrocele in adult HTN (hypertension) Surgical History Hx of right inguinal hernia repair (~06/07/23) Hx of cardiac catheterization Hx of pyloroplasty H/O colonoscopy Family History Father Heart problem Social History Housing: House Are you a primary day care provider to a significant other at home: No Do you presently have visiting nurse or other home services: No Alcohol intake: former Patient Tobacco Use Status: Current everyday Tobacco user Tobacco use type: Cigarette Cigarettes Per Day: 10 Years Smoked: 50 e-Cigarette/Vaping Use: Never Used service: No Current occupational status: employed Cognitive needs: No Hearing needs: No Vision needs: Yes Review of Systems Const Denies weakness ENT Denies dizziness Card Denies chest pain, Denies chest pain with activity, Denies syncope, Denies rapid heart rate, Denies pedal edema, Denies edema, Denies leg edema, Denies lightheadedness, Denies palpitations, Denies dyspnea, Denies dyspnea on exertion and Denies orthopnea Resp Denies cough, Denies dyspnea and Denies dyspnea on exertion GI Denies hematochezia and Denies change in stool character Musc Denies abnormal gait, Denies muscle cramps, Denies muscle weakness, Denies numbness, Denies radiating pain into limb and Denies tingling Neuro Denies abnormal gait, Denies dizziness, Denies syncope, Denies numbness, Denies tingling and Denies weakness Endo Denies palpitations Physical Exam Vital Signs: Last Vital Signs Pulse 78 02/07/25 09:49 BP 108/60 02/07/25 09:49 BMI result Body Mass Index 26.4 Const General: comfortable and no acute distress Orientation/consciousness: patient oriented x3 HEENT Other: Unremarkable Head: Yes normal to inspection Neck Neck: Yes normal visual inspection Chest Chest palpation & inspection: normal inspection of the chest Resp Auscultation: clear to auscultation bilaterally Cardio Palpation: normal PMI Heart sounds: S1 normal heart sound present, S2 normal heart sound present, no gallops, no murmurs and no rubs GI Palpation (GI): Soft to palpation Back/Spine/Pelvis Other: unremarkable Skin General skin exam: no rashes or lesions noted Neuro General: patient oriented x3 Extrem General: Yes normal to inspection Psych Mental Status: mental status grossly normal Office Procedures EKG Details: EKG with sinus, 78/min, rightward axis; cannot exclude old septal infarct; prolonged [place] to 308 milliseconds; [place]. [id number], Complete Assessment & Plan Assessment & Plan (1) Atrial flutter: Code(s): I48.92 - Unspecified atrial flutter Category: Medical Plan: In the Holter, underlying rhythm is sinus with an average rate of 83/Min. Frequent PACs. He is not on any rate controlling drugs. There is a history of Mobitz type 1 block mentioned in prior notes. Continue anticoagulation. (2) NICM (nonischemic cardiomyopathy): Code(s): I42.8 - Other cardiomyopathies Category: Medical Plan: Per [facility] echocardiogram, LVEF 35-40% in 2020. Most recently, 60-65%. Cardiac catheterization 2020-minimal irregularities in left main, LAD, circumflex and RCA. Mid RCA with 30% stenosis. Otherwise unremarkable. Continue statins. 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 Could be all from his smoking. Otherwise, continue statins. (4) HTN (hypertension): Code(s): I10 - Essential (primary) hypertension Category: Medical Plan: Blood pressure is slightly lowish and he states he is getting dizzy. Advised to cut back on hydralazine. (5) Smoking: Code(s): F17.200 - Nicotine dependence, unspecified, uncomplicated Category: Social Hx Plan: Unfortunately, continues to smoke. Must quit. Plan Discussion Notes I discussed with the patient the importance of adjusting his hydralazine dosage to manage his dizziness and low blood pressure. We also talked about the potential benefits of smoking cessation and the availability of resources to support this effort. Patient was informed and verbally consented to the use of an ambient scribe for clinic note documentation during this visit. Coding Level of Care Code Est Pt Level 4 (74005) Complex EM visit Add On G2211 Diagnoses Atrial flutter I48.92 NICM (nonischemic cardiomyopathy) I42.8 Atherosclerotic cardiovascular disease I25.10 HTN (hypertension) I10 Smoking F17.200 CPT Codes EKG - CPT: 06855-[id number], Complete ([id number])
--- OUTSIDE RECORDS SUMMARY | 2025-02-07 11:31 | XMS_ITS | Clinical Summary ---
Author Organization [facility] ity Address [address] [place] [address] Care Team Providers Care Licensed Clinician Name Role Phone Unavailable Primary Care Provider Unavailabl e Social History Tobacco Use Types Packs/Day Years Used Date Smoking Tobacco: Never Assessed Sex and Gender Information Value Date Recorded Sex Assigned at Not on file Legal Sex Male 12:03 PM EST Gender Identity Not on file Sexual Orientation Not on file Plan of Treatment Health Maintenance Due Date Last Done Comments DTaP,Tdap,and Td Vaccines (1 - Tdap) 12/19/1971 Pneumococcal Vaccine: 50+ Ye ars (1 of 1 - PCV) 2002 Zoster Vaccines (1 of 2) 2002 Depression Screening 05/16/2024 COVID-19 Vaccine (1 - 2023-2 5 season) 2025 Influenza Vaccine (#1) 2025 RSV Immunization Adult Patie nts (1 - 1-dose 75+ series) 12/19/2027 HIB Vaccines Aged Out No longer eligi ble based on patient's age to complete this topic HPV Vaccines Aged Out No longer eligi ble based on patient's age to complete this topic Hepatitis A Vaccines Aged Out No long er eligible based on patient's age to complete this topic Hepatitis B Vaccines Aged Out No long er eligible based on patient's age to complete this topic IPV Vaccines Aged Out No longer eligi ble based on patient's age to complete this topic MMR Vaccines Aged Out No longer eligi ble based on patient's age to complete this topic Meningococcal ACWY Vaccine Aged Out N o longer eligible based on patient's age to complete this topic Meningococcal B Vaccine Aged Out No l onger eligible based on patient's age to complete this topic RSV Immunization Patients Un meredith 20 months Aged Out No longer eligible b ased on patient's age to complete this topic Varicella Vaccines Aged Out No longer eligible based on patient's age to complete this topic
== END 2025-02-07 10:16 | disposition home or self-care (01) ==
LOC: HO.HCS 09:44
PROVIDERS: PCP Nurse Practitioner Family; Visit Provider Internal Medicine
DX: I48.92 Unspecified atrial flutter (principal); I42.8 Other cardiomyopathies; I25.10 Atherosclerotic heart disease of native coronary artery without angina pectoris; I10 Essential (primary) hypertension; F17.200 Nicotine dependence, unspecified, uncomplicated
CPT/HCPCS: 93010; 99214; G2211

== ENCOUNTER → 2025-02-07 09:43 | Outpatient (BNVA) | payer MEDICARE, SELFPAY | PROVIDERS: PCP Nurse Practitioner Family; Visit Provider Internal Medicine | DX: I48.92 Unspecified atrial flutter (principal); I42.8 Other cardiomyopathies; I25.10 Atherosclerotic heart disease of native coronary artery without angina pectoris; I10 Essential (primary) hypertension; R42 Dizziness and giddiness; Z72.0 Tobacco use | CPT/HCPCS: 93005; 99212 ==

== ENCOUNTER 2025-02-08 10:07 | Outpatient (AMB) | payer MEDICARE, SELFPAY ==
[2025-02-08 10:09] VITALS: BP 118/62; PULSE 87; O2SAT 99; BMI 26.4
--- NOTE | 2025-02-08 10:09 | MHC.PC.OV ---
Vital Signs 02/08/25 10:09 Height 5 ft 9 in Weight 179 lb BMI 26.4 BP 118/62 Blood Pressure Location Rt brachial Position Sitting Pulse 87 Pulse Source Pulse Oximeter Pulse Oximetry (%) 99 Oxygen Delivery Method Room Air Intake Visit Reasons: EC/ transfer of care from Joe - [facility] regalado Supervisor Customer Services Required: No Accompanied by: Self / Same As Patient Allergies No Known Allergies Allergy (Verified 02/08/25 10:17) Medication List - Last Reconciled 02/08/25 by Veronica Power MD apixaban 5 mg PO BID atorvastatin 40 mg PO BEDTIME furosemide 20 mg PO DAILY PRN hydralazine 50 mg PO BID 90 days lisinopril 40 mg PO BEDTIME tamsulosin 0.4 mg PO DAILY Tobacco use date assessed: 02/08/25 Fall risk assessment: No Falls in past year Last assessed Fall Risk: 02/08/25 Dental Screening Dental Screen Date: 02/08/25 Did you have a dental visit in the last 12 months?: No Did you have a dental problem in the last 6 months where you did not have access to dental care?: No Was dental information given to patient?: Patient declined HPI EC/ transfer of care from Joe - [facility] comments HPI Details PATIENT PRESENTS FOR A NEW PATIENT VISIT. PAST MEDICAL HISTORY INCLUDES HYPERTENSION, NONISCHEMIC CARDIOMYOPATHY WITH RECOVERED EJECTION FRACTION ,ESTABLISHED WITH [facility]. HYPERLIPIDEMIA CONTROLLED ON ATORVASTATIN, HISTORY OF A FLUTTER ANTICOAGULATED ON ELIQUIS. Patient was noted to have low blood pressure reading last Cardiology office and hydralazine dose was decreased yesterday by Cardiology from 75 mg twice a day to 50 mg twice a day yesterday. Patient complains of bilateral foot pain,previously treated for plantar fasciitis with shoe inserts. He is requesting referral to supervisor area. [facility] Medical History (Updated 02/08/25 @ 20:34 by Veronica Power MD) COPD (chronic obstructive pulmonary disease) Athlete's foot Plantar fasciitis, bilateral PVD (peripheral vascular disease) NICM (nonischemic cardiomyopathy) Smoking BPH (benign prostatic hyperplasia) Atrial flutter Hyperlipidemia HTN (hypertension) Surgical History (Updated 02/08/25 @ 11:31 by Veronica Power MD) Hx of right inguinal hernia repair (~06/07/23) Hx of cardiac catheterization Hx of pyloroplasty H/O colonoscopy Family History Father Heart problem Social History Housing: House Are you a primary client care consultant to a significant other at home: No Do you presently have visiting nurse or other home services: No Alcohol intake: former Patient Tobacco Use Status: Current everyday Tobacco user Tobacco use type: Cigarette Cigarettes Per Day: 10 Years Smoked: 50 Packs per year/per ci.00 e-Cigarette/Vaping Use: Never Used service: No Current occupational status: employed 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 1. Little interest or pleasure in doing things: nearly every day 2. Feeling down, depressed, or hopeless: nearly every day 3. Trouble falling or staying asleep, or sleeping too much: more than half the days 4. Feeling tired or having little energy: nearly every day 5. Poor appetite or overeating: several days 6. Feeling bad about yourself - or that you are a failure or have let yourself or your family down: more than half the days 7. Trouble concentrating on things, such as reading the newspaper or watching television: more than half the days 8. Moving or speaking so slowly that other people could have noticed. Or the opposite - being so fidgety or restless that you have been moving around a lot more than usual: not at all 9. Thoughts that you would be better off or of hurting yourself in some way: not at all Total score: 16 Depression Screening Interpretation: Positive (PATIENT IS ESTABLISHED WITH COUNSELOR AND DECLINED MEDICATIONS) Depression Screening Follow-up: Existing condition Depression Screening Done: Yes 15733 - PHQ-9 Billing: Yes Source: Developed by Drs. Lai Carson, Imelda Bennett, Mele Recinos and colleagues, with an educational jair from [employer]. Thrive Questionnaire Date Thrive assessed: 02/08/25 I am a: Patient What is your living situation today?: I have a steady place to live Within the past 12 months, did the food you bought not last and you didn't have the money to get more?: Never true Within the past 12 months, did you worry whether your food would run out before you got money to buy more?: Never true Do you have trouble paying for medicines?: No Do you have trouble getting transportation to medical appointments?: Yes Do you have trouble paying your heating and electricity bill?: No Do you have trouble taking care of your child, family member or friend?: No Do you have trouble with day-to-day activities such as bathing, preparing meals, shopping, managing finances, etc.?: Yes Are you currently unemployed and looking for a job?: No Are you interested in more education?: No Please select the resources that you would like help with: None Currently or been in a relationship where the following occur: No concerns reported THRIVE Score: 1 AUDIT C Alcohol Use Questionnaire (AUDIT-C) 1. How often do you have a drink containing alcohol?: Never 3. How often do you have six or more drinks on one occasion?: Never Total Score: 0 Score Reviewed/Action Taken: Yes VIKTOR-7 AMB Questionnaire VIKTOR-7 Date VIKTOR - 7 assessed: 02/08/25 Feeling nervous, anxious, or on edge: 3 = Nearly every day Not being able to stop or control worryin = Several days Worrying too much about different things: 3 = Nearly every day Trouble relaxin = More than half the days Being so restless that it is hard to sit still: 3 = Nearly every day Becoming easily annoyed or irritable: 0 = Not at all Feeling afraid as if something awful might happen: 3 = Nearly every day Total VIKTOR-7 score (0-4 normal; 5-9 mild; 10-14 moderate; 15-21 severe): 15 Source: Developed by Drs. Lai Carson, Imelda Bennett, Mele Recinos and colleagues, with an educational jair from [employer]. VIKTOR-7 Assessment Billing VIKTOR-7 Assessment Tool: VIKTOR-7 Assessment 76529 Review of Systems Const All systems reviewed & are unremarkable except as noted in HPI and below Eyes Reports no additional complaints ENT Reports no additional complaints Card Reports no additional complaints Resp Reports no additional complaints GI Reports no additional complaints Reports no additional complaints Physical exam (Primary Care) Vital Signs: Last Vital Signs Pulse 87 02/08/25 10:09 BP 118/62 02/08/25 10:09 Pulse Ox 99 02/08/25 10:09 Oxygen Delivery Method Room Air 02/08/25 10:09 BMI result Body Mass Index 26.4 Tobacco/Smoking Status: Tobacco use Status Tobacco use date assessed 02/08/25 02/08/25 10:13 Patient Tobacco Use Status Current everyday Tobacco 02/08/25 10:13 Tobacco use type Cigarette 02/08/25 10:13 e-Cigarette/Vaping Use Never Used 02/08/25 10:13 PHQ-9: PHQ-9 Score PHQ-9: Total score 16 02/08/25 11:32 Depression Screening Interpretation: Positive (PATIENT IS ESTABLISHED WITH COUNSELOR AND DECLINED MEDICATIONS) Depression Screening Follow-up: Existing condition Thrive Assessment: Date of Thrive Assessment Date Thrive assessed 02/08/25 02/08/25 10:13 Currently or been in a relationship where the following occur: No concerns reported Const General: no acute distress HENMT Head: Yes normal to inspection Ears: hearing grossly normal bilaterally Face and sinus: Yes normal facial exam Throat: Yes posterior oropharynx normal Neck Neck: Yes no lymphadenopathy and Yes supple Resp Effort & Inspection: normal respiratory effort Auscultation: diminished lung sounds Cardio Rhythm: regular rhythm Heart sounds: S1 normal heart sound present and S2 normal heart sound present GI Inspection: Yes normal to inspection Palpation (GI): Soft to palpation Percussion: Yes normal to percussion Auscultation: normal bowel sounds Extrem Other: 1+ pitting edema chronic venous stasis and dry scaly skin on both lower extremities Coding Level of Care Code Est Pt Level 4 (06199) Diagnoses Plantar fasciitis, bilateral M72.2 PVD (peripheral vascular disease) I73.9 Smoking F17.200 HTN (hypertension) I10 NICM (nonischemic cardiomyopathy) I42.8 H/O colonoscopy Z98.890 Additional Codes VIKTOR-7 Assessment Billing - VIKTOR-7 Assessment Tool: VIKTOR-7 Assessment 66906 ([id number]) PHQ-9 - 88828 - PHQ-9 Billing: Yes ([id number]) Assessment & Plan Assessment & Plan (1) Plantar fasciitis, bilateral: Code(s): M72.2 - Plantar fascial fibromatosis Category: Medical Plan: Referred to Podiatry (2) PVD (peripheral vascular disease): Comment: f/u Vascular surgeon at [facility] , 08/2023 R PHYLICIA 0.44, L PHYLICIA 0.54, Dopper: occluded distal abdominal aorta and and proximal common femoral arteries bilaterally, asymptomatic Code(s): I73.9 - Peripheral vascular disease, unspecified Category: Medical Plan: f/u with vascular surg [facility] (3) Smoking: Comment: 1 ppd x 40, referred to lung cancer screening program 01/2025 Code(s): F17.200 - Nicotine dependence, unspecified, uncomplicated Category: Social Hx Plan: tobacco quitting discussed (4) HTN (hypertension): Code(s): I10 - Essential (primary) hypertension Category: Medical Plan: cont current meds, lower dose of Hydralazine, monitor BP , F/U 1 month (5) NICM (nonischemic cardiomyopathy): Comment: Recovered ejection fraction, negative cardiac cath at [facility] 2020, Echo 11/2023 [facility] [place] nl EF, nl valves, f/u [facility] Cardiology Code(s): I42.8 - Other cardiomyopathies Category: Medical Plan: cont ACEI and Furosemide prn (6) H/O colonoscopy: Comment: 2009? Code(s): Z98.890 - Other specified postprocedural states Category: Surgical Plan: refer to GI FOR COLONOSCOPY Orders: Orders Comprehensive [place]. Panel Fast Today I10 - Essential (primary) hypertension, I42.8 - Other cardiomyopathies Lipid Panel Today I10 - Essential (primary) hypertension, I42.8 - Other cardiomyopathies Complete Blood Count Auto Diff Today I10 - Essential (primary) hypertension, I42.8 - Other cardiomyopathies UA w Microscopic Today I10 - Essential (primary) hypertension, I42.8 - Other cardiomyopathies TSH reflex Free T4 Today I10 - Essential (primary) hypertension, I42.8 - Other cardiomyopathies Referrals Vascular Surgery Referral I73.9 - Peripheral vascular disease, unspecified Lung Cancer Screening Referral F17.200 - Nicotine dependence, unspecified, uncomplicated Podiatry Referral M72.2 - Plantar fascial fibromatosis Gastroenterology Referral Z00.00 - Encounter for general adult medical examination without abnormal findings Medications: New ammonium lactate 12% (AmLactin) 1 appl topical DAILY 400 grams 1RF Changed From hydralazine Take with 1-25 mg hydralazine bid 50 mg PO BID 90 days 180 tabs 2RF To hydralazine 50 mg PO BID 180 tabs 2RF 90 days
--- OUTSIDE RECORDS SUMMARY | 2025-02-08 11:21 | XMS_ITS | Clinical Summary ---
Author Organization [facility] ity Address [address] [place] [address] Care Team Providers Care Hand Bander Name Role Phone Unavailable Primary Care Provider [...]
== END 2025-02-08 16:41 | disposition home or self-care (01) ==
LOC: HO.HMCC 10:07
PROVIDERS: Visit Provider Internal Medicine
DX: I42.8 Other cardiomyopathies (principal); M72.2 Plantar fascial fibromatosis; I73.9 Peripheral vascular disease, unspecified; F17.200 Nicotine dependence, unspecified, uncomplicated; I10 Essential (primary) hypertension; Z98.890 Other specified postprocedural states

== ENCOUNTER → 2025-02-08 10:07 | Outpatient (BNVA) | payer MEDICARE, SELFPAY | PROVIDERS: Visit Provider Internal Medicine | DX: M72.2 Plantar fascial fibromatosis (principal); I73.9 Peripheral vascular disease, unspecified; F17.210 Nicotine dependence, cigarettes, uncomplicated; I10 Essential (primary) hypertension; I42.8 Other cardiomyopathies; Z79.01 Long term (current) use of anticoagulants; Z98.890 Other specified postprocedural states | CPT/HCPCS: 96127; 99212 ==